=== PATIENT | male | born 1960 ===

== ENCOUNTER 2018-01-14 19:16 | Inpatient (IN) | payer MEDICARE ==
[2018-01-14 19:16] VITALS: BMI 41.0
[2018-01-14 20:20] LABS: BASO # 0.1 K/uL (0.0-0.2); BASO % 0.8 % (0.0-2.0); EOS # 0.2 K/uL (0.0-0.7); EOS % 2.2 % (0.0-4.0); HEMOGLOBIN 16.1 g/dL (12.0-18.0); LYMPH # 2.5 K/uL (1.0-4.3); LYMPH % 26.9 % (20.0-40.0); MEAN CORPUSCULAR HEMOGLOBIN 28.1 pg (27.0-31.0); MEAN CORPUSCULAR HGB CONC 33.1 g/dL (33.0-37.0); MEAN PLATELET VOLUME 7.3 fL (7.2-11.7); MONO # 0.6 K/uL (0.0-0.8); MONO % 6.1 % (0.0-10.0); NRBC % 0.2 % (0.0-2.0); RBC 5.71 Mil/uL (4.40-5.90); RED CELL DISTRIBUTION WIDTH 13.8 % (11.5-14.5); WHITE BLOOD COUNT 9.4 K/uL (4.8-10.8)
[2018-01-14 20:33] LABS: ALB/GLOB RATIO 1.2 (1.0-2.1); ALBUMIN 4.6 g/dL (3.5-5.0); CALCIUM 9.4 mg/dl (8.6-10.4); GFR AFRICAN-AMERICAN > 60; GFR NON-AFRICAN AMERICAN 52; URIC ACID 8.5 mg/dL (3.5-8.5)
[2018-01-14 20:34] LABS: ALT/SGPT 26 U/L (21-72); AST/SGOT 27 U/L (17-59); BLOOD UREA NITROGEN 32 mg/dL (9-20)
[2018-01-14] MEDS ORDERED: Sodium Chloride 0.9% 1,000 ML IV STA (20:35)
[2018-01-14] MEDS ORDERED: Sodium Chloride 0.9% 1,000 ML ONE (20:47)
[2018-01-14 20:57] LABS: INR 1.1; PROTHROMBIN TIME 12.1 SECONDS (9.7-12.2)
[2018-01-14 21:54] LABS: URINE BACTERIA RARE (<OCC); URINE BILIRUBIN NEGATIVE (NEGATIVE); URINE BLOOD NEGATIVE (NEGATIVE); URINE CLARITY Clear (Clear); URINE COLOR Yellow (YELLOW); URINE GLUCOSE (UA) 3+ mg/dL (Normal); URINE LEUKOCYTE ESTERASE NEG Leu/uL (Negative); URINE PROTEIN NEGATIVE (NEGATIVE); URINE UROBILINOGEN NORMAL mg/dL (0.2-1.0)
[2018-01-14] MEDS ORDERED: cefTRIAXone IV 1 gm in Dextros 50 ML IVPB ONE (22:25)
--- NOTE | 2018-01-14 22:32 | C.PDOC ---
History Of Present Illness Pt c/o RLE pain and right foot swelling/redness. Time Seen by Provider: 01/14/18 19:39 Chief Complaint (Nursing): Lower Extremity Problem/Injury History Per: Patient, Family Onset/Duration Of Symptoms: Days (3) Current Symptoms Are (Timing): Still Present Location Of Injury: Right: Foot Quality Of Symptoms: Painful, Swollen. denies: Draining Severity: Moderate Additional History Per: Prior Records Past Medical History Reviewed: Historical Data, Nursing Documentation, Vital Signs Vital Signs: Last Vital Signs Temp 100.4 F H 01/14/18 20:17 Pulse 86 01/14/18 19:33 Resp 20 01/14/18 19:33 BP 158/84 H 01/14/18 19:33 Pulse Ox 96 01/14/18 19:33 - Medical History PMH: Anxiety, Arthritis, Benign Prostatic Hyperplasia, Diabetes, HTN, Hypercholesterolemia Surgical History: Coronary Stent (2001,2009) - [facility] Procedures COLONOSCOPY (03/28/99) ENDOSC RETROGRADE CHOLANGIOPANCREATOGRAPHY [ERCP] (02/09/99) EXTRACTION OF LEFT FOOT SKIN, EXTERNAL APPROACH (03/12/16) NECK SUPPORT APPLICATION (03/11/00) Family History: States: Unknown Family Hx - Social History Hx Tobacco Use: Yes (former smoker) Hx Alcohol Use: No Hx Substance Use: Yes - Immunization History Hx Tetanus Toxoid Vaccination: No Hx Influenza Vaccination: No Hx Pneumococcal Vaccination: Yes Review Of Systems Except As Marked, All Systems Reviewed And Found Negative. Constitutional: Negative for: Weakness Cardiovascular: Negative for: Chest Pain Respiratory: Negative for: Cough, Shortness of Breath Gastrointestinal: Negative for: Vomiting, Abdominal Pain, Diarrhea Genitourinary: Negative for: Dysuria Musculoskeletal: Positive for: Foot Pain (right). Negative for: Neck Pain, Back Pain Skin: Positive for: Rash Neurological: Negative for: Weakness, Numbness, Headache Physical Exam - Physical Exam Appears: Non-toxic, No Acute Distress Skin: Warm, Dry Head: Atraumatic, Normacephalic Eye(s): bilateral: PERRL, EOMI Oral Mucosa: Dry Neck: Normal ROM, Supple Cardiovascular: Rhythm Regular Respiratory: Normal Breath Sounds, No Accessory Muscle Use Gastrointestinal/Abdominal: Soft, No Tenderness Back: No CVA Tenderness, No Vertebral Tenderness Extremity: Normal ROM, Tenderness (right foot, with some erythema), No Calf Tenderness, Capillary Refill (wnl), Swelling (right foot) Neurological/Psych: Oriented x3, Normal Motor, Normal Sensation ED Course And Treatment - Laboratory Results Result Diagrams: 01/14/18 20:17 01/14/18 20:17 Lab Interpretation: Abnormal Interpretation Of Abnormal: Elevated BUN. Positive D-Dimer. O2 Sat by Pulse Oximetry: 96 Pulse Ox Interpretation: Normal Progress Note: Pt was found to be febrile in the ED. Progress - Interventions Interventions:: Observation, Intravenous fluid - Medications Administered Oral: Acetaminophen Intravenous: Other (Abx) - Data Reviewed Data Reviewed: Lab, Old records - Continuity of Care Discussed patient case with:: Patient, Family-HIPPA compliant, ED Nurse, PMD Disposition Discussed With : Renee Ordonez Comment: Will keep for observation and obtain a RLE duplex in the morning to r/ o DVT as it is not available at this time. Counseled Patient/Family Regarding: Studies Performed, Diagnosis - Disposition Disposition: HOSPITALIZED Disposition Time: 22:34 Condition: FAIR - Clinical Impression Clinical Impression: Acute pain of right lower extremity, Swelling of right foot, Fever
[2018-01-14] MEDS: (Novolin R) Insulin Human Regular 100 units/ml vial SC SCH (23:15)
[2018-01-14] MEDS: oxyCODONE 30 mg Immediate Release Tab PO PRN (23:39)
[2018-01-14] MEDS ORDERED: Enoxaparin 40 mg Syringe SC ONE (23:50)
[2018-01-15 00:38] VITALS: RESP 20
[2018-01-15 07:25] LABS: BASO # 0.1 K/uL (0.0-0.2); BASO % 0.9 % (0.0-2.0); EOS # 0.3 K/uL (0.0-0.7); EOS % 2.9 % (0.0-4.0); HEMOGLOBIN 16.4 g/dL (12.0-18.0); LYMPH # 3.7 K/uL (1.0-4.3); MEAN CELL VOLUME 85.1 fL (80.0-94.0); MEAN CORPUSCULAR HEMOGLOBIN 29.1 pg (27.0-31.0); MEAN CORPUSCULAR HGB CONC 34.2 g/dL (33.0-37.0); MEAN PLATELET VOLUME 7.5 fL (7.2-11.7); MONO # 0.5 K/uL (0.0-0.8); MONO % 5.7 % (0.0-10.0); NEUT # 4.7 K/uL (1.8-7.0); NEUT % 50.5 % (50.0-75.0); NRBC % 0.1 % (0.0-2.0); RBC 5.62 Mil/uL (4.40-5.90); RED CELL DISTRIBUTION WIDTH 14.1 % (11.5-14.5); WHITE BLOOD COUNT 9.2 K/uL (4.8-10.8)
[2018-01-15] MEDS ORDERED: (Novolin R) Insulin Human Regular 100 units/ml vial SC SCH (07:30)
[2018-01-15] MEDS: (Novolin R) Insulin Human Regular 100 units/ml vial SC SCH ×4 (07:43→21:39)
[2018-01-15 08:06] LABS: ALB/GLOB RATIO 1.3 (1.0-2.1); ALBUMIN 4.4 g/dL (3.5-5.0); ALT/SGPT 25 U/L (21-72); AST/SGOT 21 U/L (17-59); BLOOD UREA NITROGEN 28 mg/dL (9-20); CALCIUM 8.8 mg/dl (8.6-10.4); GFR AFRICAN-AMERICAN > 60; GFR NON-AFRICAN AMERICAN 57
[2018-01-15] MEDS: Enoxaparin 40 mg Syringe SC SCH ×2 (09:24→17:08)
--- NOTE | 2018-01-15 12:41 | VASCLAB ---
PROCEDURE: Right Lower Extremity Venous Duplex Exam. HISTORY: DVT PRIORS: None. TECHNIQUE: Right common femoral, femoral, popliteal and posterior tibial, peroneal and great saphenous veins were evaluated. Flow was assessed with color Doppler, compressibility, assessment of phasic flow and augmentation response. Report prepared by JHONATAN Campo FINDINGS: RIGHT: 1. Common Femoral Vein: 1.1. Compressibility - Fully compressible: Thrombus - None: Flow - Phasic: Augmentation -Normal: Reflux - None. 2. Femoral Vein: 2.1. Compressibility - Fully compressible: Thrombus - None: Flow - Phasic: Augmentation -Normal: Reflux - None. 3. Popliteal Vein: 3.1. Compressibility - Fully compressible: Thrombus - None: Flow - Phasic: Augmentation -Normal: Reflux - None. 4. Posterior Tibial Vein: 4.1. Compressibility - Fully compressible: Thrombus - None: Flow - Phasic: Augmentation -Normal: Reflux - None. 5. Peroneal Vein: 5.1. Compressibility - Fully compressible: Thrombus - None: Flow - Phasic: Augmentation -Normal: Reflux - None. 6. Great Saphenous Vein: 6.1. Compressibility - Fully compressible: Thrombus -None: Flow - Phasic: Augmentation - Normal: Reflux - None. OTHER FINDINGS: IMPRESSION: No evidence of deep or superficial vein thrombosis of the right lower extremity with excellent venous flow. Normal valve function noted of the right side. Normal venous flow noted in the left common femoral vein.
[2018-01-15] MEDS: oxyCODONE 30 mg Immediate Release Tab PO PRN ×2 (13:18→21:00)
--- NOTE | 2018-01-15 13:34 | CP.PCM.HP ---
History of Present Illness - History of Present Illness History of Present Illness: COMPREHENSIVE HISTORY & PHYSICAL EXAM HPI 57-year-old male is admitted with the swelling of the right foot for the last 48 hours. Patient said the patient started getting pain and swelling of the right food then extended to the right foreleg thigh and up to the groin region this was also associated with pain and increased temperature and increased skin sensitivity. Patient did not seek medical advice right away was seen as outpatient yesterday and was advised hospitalization or evaluation for DVT. Patient has a history of type 2 diabetes history of previous infection in the right dorsum of the foot. Currently patient has no sensation of pain in both soles of the feet. Patient has coronary artery disease with bypass surgery and stent. History of hypertension. Patient has a history of osteomyelitis of the right foot last year. Patient has a chronic lumbosacral radiculopathy on narcotics PAST HIST. PERSONAL HIST: Smoking. N Alcohol. N Allergy N Travel_- . FAMILY HIST : ROS : Constitutional: Negative for weight change, chills, night sweats, fatigue and usage of assist device. Eyes: Negative for redness, swelling, itching, discharge, vision changes, blurry vision, double vision, glaucoma, cataracts, Ears: Negative for hearing loss, ringing, , tinnitus, vertigo Nose: Negative for rhinorrhea, stuffiness, sniffing, itching, postnasal drip, discoloration, nasal congestion and epistaxis. Throat: Negative for throat clearing, sore throat, hoarseness, difficulty swallowing and difficulty speaking. Respiratory: Negative for cough, , sputum production, chest tightness, wheezing, pleuritic chest pain ,daytime somnolence, chronic cough, hemoptysis, snoring at night, Cardiovascular: Negative for chest pain, palpitations, orthopnea, PND, Edema of legs, leg cramps, angina, claudication, , irregular heartbeat, Neurology: Negative for irritability, muscle weakness, numbness and tingling, seizures, tremors, migraines, slurred speech, syncope, memory loss, mood changes , recurrent headaches Gastrointestinal: Negative for difficulty swallowing, diarrhea, constipation, black stools, rectal bleeding, nausea, flatulence, reflux, poor appetite, changes in bowel habits, abdominal pain Genitourinary: Negative for frequent urination, hematuria, discharge, incontinence, urinary retention, frequent UTI, Psychiatric: Negative for depression, anxiety/panic, suicidal tendencies, Musculoskeletal: Negative for swollen joints, back pain, , neck pain, morning stiffness of joints, . Pain and swelling mostly in the right calf Skin: Negative for rash, ulcers, itching, dry skin and pigmented lesions. P/E: Constitutional: Appears stated age and in no apparent distress. Head: Normocephalic. Ears: External ear canals patent without inflammation. Tympanic membranes intact with normal light reflex and landmark. Eyes: Pupils are central, bilaterally equal, symmetrical and reacts to light with normal movements and no icterus or pallor. Nose: External nares are patent. Mucosa is pink Mouth-Throat: Good general appearance and condition. No post-pharyngeal/oropharyngeal erythema and tonsillar hypertrophy. Good dental hygiene. Neck-Lymphatic: Neck is supple with normal ROM, no thyromegaly, lymph nodes or masses. JVD is normal with no carotid bruit. Lungs: Clear to percussion and auscultation with bilateral normal air entry. Cardiovascular: S1 and S2 are normal with no murmurs, gallops and rub. GI Exam: No hepatomegaly. Abdomen is soft and non-tender. No Organomegaly , masses or hernias are evident and bowel sounds are normal and active. Neurology: Higher function and all cranial nerves intact, with no gross motor or sensory deficit. Superficial and deep reflexes are normal with downwards planters. No cerebellar deficit with normal gait. Musculoskeletal: No tender spots with normal curvature of the spine with no swelling or restricted ROM of the small and large joints. Extremities the right foot near the ankle and the calf is swollen tender and Homans signs is questionable positive. Pulses are intact there is no any break in the skin or any superficial infections or ulcers. Skin: No rash, eruptions or abnormal skin pigmentation LAB/RADIOLOGY: ASSESMENT : Rule out DVT of the right leg Possible subcutaneous infection of the right leg, as patient had a fever of 100.4F in the year Type 2 diabetes on insulin, coronary artery disease CABG. PLAN: Subcutaneous anticoagulation, Doppler studies of the right leg and possible IV antibiotics if the Doppler studies are negative Present on Admission - Present on Admission Any Indicators Present on Admission: No Past Patient History - Infectious Disease Hx of Infectious Diseases: None - Past Medical History & Family History Past Medical History?: Yes - Past Social History Smoking Status: Former Smoker - CARDIAC Hx Hypercholesterolemia: Yes Hx Hypertension: Yes - PULMONARY Hx Respiratory Disorders: No - NEUROLOGICAL Hx Neurological Disorder: Yes Hx Dizziness: Yes - HEENT Hx HEENT Problems: Yes Hx Cataracts: Yes (herman cataract surgery) - RENAL Hx Chronic Kidney Disease: No - ENDOCRINE/METABOLIC Hx Diabetes Mellitus Type 2: Yes - HEMATOLOGICAL/ONCOLOGICAL Hx Blood Disorders: No - INTEGUMENTARY Hx Dermatological Problems: Yes Other/Comment: left big toe - MUSCULOSKELETAL/RHEUMATOLOGICAL Hx Arthritis: Yes - GASTROINTESTINAL Hx Gastrointestinal Disorders: Yes Hx Hemorrhoids: Yes - GENITOURINARY/GYNECOLOGICAL Hx Genitourinary Disorders: No - PSYCHIATRIC Hx Anxiety: Yes Hx Substance Use: Yes - SURGICAL HISTORY Hx Coronary Stent: Yes (2001,2009) - ANESTHESIA Hx Anesthesia: Yes Hx Anesthesia Reactions: No Meds Allergies/Adverse Reactions: Allergies Allergy/AdvReac Type Severity Reaction Status Date / Time seasonal Allergy Uncoded 01/14/18 19:36 Results - Vital Signs Recent Vital Signs: Last Vital Signs Temp 98.4 F 01/15/18 07:39 Pulse 84 01/15/18 07:39 Resp 20 01/15/18 07:39 BP 160/84 H 01/15/18 07:39 Pulse Ox 96 01/15/18 08:26 - Labs Result Diagrams: 01/15/18 07:17 01/15/18 07:17 Labs: Laboratory Results - last 24 hr 01/14/18 01/14/18 01/14/18 20:17 20:17 20:43 WBC 9.4 RBC 5.71 Hgb 16.1 D Hct 48.5 MCV 85.0 D MCH 28.1 MCHC 33.1 RDW 13.8 Plt Count 239 MPV 7.3 Neut % (Auto) 64.0 Lymph % (Auto) 26.9 [place] % (Auto) 6.1 Eos % (Auto) 2.2 Baso % (Auto) 0.8 Neut # (Auto) 6.0 Lymph # (Auto) 2.5 [place] # (Auto) 0.6 Eos # (Auto) 0.2 Baso # (Auto) 0.1 PT 12.1 INR 1.1 APTT 34 D-Dimer, Quantitative 587 H Sodium 137 Potassium 5.9 H Chloride 100 Carbon Dioxide 23 Anion Gap 20 BUN 32 H Creatinine 1.4 Est GFR ( Amer) > 60 Est GFR (Non-Af Amer) 52 POC Glucose (mg/dL) Random Glucose 233 H Uric Acid 8.5 Calcium 9.4 Total Bilirubin 1.1 AST 27 ALT 26 Alkaline Phosphatase 164 H Total Protein 8.3 Albumin 4.6 Globulin 3.7 Albumin/Globulin Ratio 1.2 Urine Color Urine Clarity Urine pH Ur Specific [place] Urine Protein Urine Glucose (UA) Urine Ketones Urine Blood Urine Nitrate Urine Bilirubin Urine Urobilinogen Ur Leukocyte Esterase Urine WBC (Auto) Urine Bacteria 01/14/18 01/14/18 01/15/18 21:44 23:19 06:53 WBC RBC Hgb Hct MCV MCH MCHC RDW Plt Count MPV Neut % (Auto) Lymph % (Auto) [place] % (Auto) Eos % (Auto) Baso % (Auto) Neut # (Auto) Lymph # (Auto) [place] # (Auto) Eos # (Auto) Baso # (Auto) PT INR APTT D-Dimer, Quantitative Sodium Potassium Chloride Carbon Dioxide Anion Gap BUN Creatinine Est GFR ( Amer) Est GFR (Non-Af Amer) POC Glucose (mg/dL) 164 H 186 H Random Glucose Uric Acid Calcium Total Bilirubin AST ALT Alkaline Phosphatase Total Protein Albumin Globulin Albumin/Globulin Ratio Urine Color Yellow Urine Clarity Clear Urine pH 5.0 Ur Specific [place] 1.018 Urine Protein Negative Urine Glucose (UA) 3+ H Urine Ketones Trace Urine Blood Negative Urine Nitrate Negative Urine Bilirubin Negative Urine Urobilinogen Normal Ur Leukocyte Esterase Neg Urine WBC (Auto) 1 Urine Bacteria Rare 01/15/18 01/15/18 01/15/18 07:17 07:17 10:45 WBC 9.2 RBC 5.62 Hgb 16.4 Hct 47.9 MCV 85.1 MCH 29.1 MCHC 34.2 RDW 14.1 Plt Count 268 MPV 7.5 Neut % (Auto) 50.5 Lymph % (Auto) 40.0 [place] % (Auto) 5.7 Eos % (Auto) 2.9 Baso % (Auto) 0.9 Neut # (Auto) 4.7 Lymph # (Auto) 3.7 [place] # (Auto) 0.5 Eos # (Auto) 0.3 Baso # (Auto) 0.1 PT INR APTT D-Dimer, Quantitative Sodium 139 Potassium 4.7 Chloride 101 Carbon Dioxide 23 Anion Gap 20 BUN 28 H Creatinine 1.3 Est GFR ( Amer) > 60 Est GFR (Non-Af Amer) 57 POC Glucose (mg/dL) 240 H Random Glucose 185 H Uric Acid Calcium 8.8 Total Bilirubin 1.1 AST 21 ALT 25 Alkaline Phosphatase 150 H Total Protein 7.8 Albumin 4.4 Globulin 3.4 Albumin/Globulin Ratio 1.3 Urine Color Urine Clarity Urine pH Ur Specific [place] Urine Protein Urine Glucose (UA) Urine Ketones Urine Blood Urine Nitrate Urine Bilirubin Urine Urobilinogen Ur Leukocyte Esterase Urine WBC (Auto) Urine Bacteria
--- NOTE | 2018-01-15 20:37 | CP.PCM.CON ---
History of Present Illness - History of Present Illness History of Present Illness: INFECTIOUS DISEASE CONSULT; DICTATED; 01/15/18 DICTATION NUMBER; [id number]. CASE DISCUSSED WITH THE STAFF.. Past Patient History - Infectious Disease Hx of Infectious Diseases: None - Past Medical History & Family History Past Medical History?: Yes - Past Social History Smoking Status: Former Smoker - CARDIAC Hx Hypercholesterolemia: Yes Hx Hypertension: Yes - PULMONARY Hx Respiratory Disorders: No - NEUROLOGICAL Hx Neurological Disorder: Yes Hx Dizziness: Yes - HEENT Hx HEENT Problems: Yes Hx Cataracts: Yes (herman cataract surgery) - RENAL Hx Chronic Kidney Disease: No - ENDOCRINE/METABOLIC Hx Diabetes Mellitus Type 2: Yes - HEMATOLOGICAL/ONCOLOGICAL Hx Blood Disorders: No - INTEGUMENTARY Hx Dermatological Problems: Yes Other/Comment: left big toe - MUSCULOSKELETAL/RHEUMATOLOGICAL Hx Arthritis: Yes - GASTROINTESTINAL Hx Gastrointestinal Disorders: Yes Hx Hemorrhoids: Yes - GENITOURINARY/GYNECOLOGICAL Hx Genitourinary Disorders: No - PSYCHIATRIC Hx Anxiety: Yes Hx Substance Use: Yes - SURGICAL HISTORY Hx Coronary Stent: Yes (2001,2009) - ANESTHESIA Hx Anesthesia: Yes Hx Anesthesia Reactions: No Meds Allergies/Adverse Reactions: Allergies Allergy/AdvReac Type Severity Reaction Status Date / Time seasonal Allergy Uncoded 01/14/18 19:36 - Medications Medications: Current Medications Alprazolam (Xanax) 1 mg PO TID [facility] Last Admin: 01/15/18 13:13 Dose: 1 mg Clopidogrel Bisulfate (Plavix) 75 mg PO DAILY [facility] Last Admin: 01/15/18 10:59 Dose: 75 mg Enoxaparin Sodium (Lovenox) 40 mg SC BID [facility] Last Admin: 01/15/18 17:08 Dose: 40 mg Ceftriaxone Sodium 1 gm/ (Sodium Chloride) 100 mls @ 100 mls/hr IVPB Q12H [facility] PRN Reason: Protocol Last Admin: 01/15/18 19:06 Dose: 100 mls/hr Insulin Glargine (Lantus) 80 unit SC HS [facility] Insulin Human Regular (Novolin R) 0 unit SC ACHS [facility] PRN Reason: Protocol Last Admin: 01/15/18 17:13 Dose: 4 units Lisinopril (Zestril) 20 mg PO BID [facility] Last Admin: 01/15/18 17:08 Dose: 20 mg Metformin HCl (Glucophage) 1,000 mg PO BID [facility] Last Admin: 01/15/18 17:06 Dose: 1,000 mg Metoprolol Tartrate (Lopressor) 100 mg PO DAILY [facility] Last Admin: 01/15/18 09:23 Dose: 100 mg Oxycodone HCl (Oxycodone Immediate Release Tab) 30 mg PO Q6H PRN PRN Reason: Pain Last Admin: 01/15/18 13:18 Dose: 30 mg Tamsulosin HCl (Flomax) 0.4 mg PO DAILY [facility] Last Admin: 01/15/18 09:24 Dose: 0.4 mg Results - Vital Signs Recent Vital Signs: Last Vital Signs Temp 98.4 F 01/15/18 16:00 Pulse 72 01/15/18 16:00 Resp 20 01/15/18 16:00 BP 134/70 01/15/18 16:00 Pulse Ox 95 01/15/18 16:00 - Labs Result Diagrams: 01/15/18 07:17 01/15/18 07:17 Labs: Laboratory Results - last 24 hr 01/14/18 01/14/18 01/14/18 20:43 21:44 23:19 WBC RBC Hgb Hct MCV MCH MCHC RDW Plt Count MPV Neut % (Auto) Lymph % (Auto) [place] % (Auto) Eos % (Auto) Baso % (Auto) Neut # (Auto) Lymph # (Auto) [place] # (Auto) Eos # (Auto) Baso # (Auto) PT 12.1 INR 1.1 APTT 34 D-Dimer, Quantitative 587 H Sodium Potassium Chloride Carbon Dioxide Anion Gap BUN Creatinine Est GFR ( Amer) Est GFR (Non-Af Amer) POC Glucose (mg/dL) 164 H Random Glucose Calcium Total Bilirubin AST ALT Alkaline Phosphatase Total Protein Albumin Globulin Albumin/Globulin Ratio Urine Color Yellow Urine Clarity Clear Urine pH 5.0 Ur Specific [place] 1.018 Urine Protein Negative Urine Glucose (UA) 3+ H Urine Ketones Trace Urine Blood Negative Urine Nitrate Negative Urine Bilirubin Negative Urine Urobilinogen Normal Ur Leukocyte Esterase Neg Urine WBC (Auto) 1 Urine Bacteria Rare 01/15/18 01/15/18 01/15/18 06:53 07:17 07:17 WBC 9.2 RBC 5.62 Hgb 16.4 Hct 47.9 MCV 85.1 MCH 29.1 MCHC 34.2 RDW 14.1 Plt Count 268 MPV 7.5 Neut % (Auto) 50.5 Lymph % (Auto) 40.0 [place] % (Auto) 5.7 Eos % (Auto) 2.9 Baso % (Auto) 0.9 Neut # (Auto) 4.7 Lymph # (Auto) 3.7 [place] # (Auto) 0.5 Eos # (Auto) 0.3 Baso # (Auto) 0.1 PT INR APTT D-Dimer, Quantitative Sodium 139 Potassium 4.7 Chloride 101 Carbon Dioxide 23 Anion Gap 20 BUN 28 H Creatinine 1.3 Est GFR ( Amer) > 60 Est GFR (Non-Af Amer) 57 POC Glucose (mg/dL) 186 H Random Glucose 185 H Calcium 8.8 Total Bilirubin 1.1 AST 21 ALT 25 Alkaline Phosphatase 150 H Total Protein 7.8 Albumin 4.4 Globulin 3.4 Albumin/Globulin Ratio 1.3 Urine Color Urine Clarity Urine pH Ur Specific [place] Urine Protein Urine Glucose (UA) Urine Ketones Urine Blood Urine Nitrate Urine Bilirubin Urine Urobilinogen Ur Leukocyte Esterase Urine WBC (Auto) Urine Bacteria 01/15/18 01/15/18 10:45 16:10 WBC RBC Hgb Hct MCV MCH MCHC RDW Plt Count MPV Neut % (Auto) Lymph % (Auto) [place] % (Auto) Eos % (Auto) Baso % (Auto) Neut # (Auto) Lymph # (Auto) [place] # (Auto) Eos # (Auto) Baso # (Auto) PT INR APTT D-Dimer, Quantitative Sodium Potassium Chloride Carbon Dioxide Anion Gap BUN Creatinine Est GFR ( Amer) Est GFR (Non-Af Amer) POC Glucose (mg/dL) 240 H 253 H Random Glucose Calcium Total Bilirubin AST ALT Alkaline Phosphatase Total Protein Albumin Globulin Albumin/Globulin Ratio Urine Color Urine Clarity Urine pH Ur Specific [place] Urine Protein Urine Glucose (UA) Urine Ketones Urine Blood Urine Nitrate Urine Bilirubin Urine Urobilinogen Ur Leukocyte Esterase Urine WBC (Auto) Urine Bacteria
[2018-01-15] MEDS: (Lantus) Insulin Glargine, Recombinant SC SCH (21:40)
[2018-01-16] MEDS: (Novolin R) Insulin Human Regular 100 units/ml vial SC SCH ×4 (07:53→21:03)
--- NOTE | 2018-01-16 08:04 | CON ---
DATE: 01/15/2018 INFECTIOUS DISEASE CONSULTATION REQUESTED BY: Dr. Ordonez. REASON FOR CONSULTATION: Right lower extremity pain, right foot swelling. HISTORY OF PRESENT ILLNESS: The patient is a 57-year-old male who is admitted because of swelling of the right foot and leg for the last 48 hours. As reported, the patient states he started getting pain and swelling of the right foot which then extended into the right foreleg and thigh up to the groin region. This was associated with increased temperature of 100.8 and increased skin sensitivity. The patient did not seek advice right away and was seen as an outpatient yesterday and was advised hospitalization for evaluation of DVT. Duplex venous studies reported negative today. Infectious disease consultation therefore requested by PMD for possible cellulitis as the patient has history of lumbosacral radiculopathy and decreased sensation to both lower extremities. The patient also has a history of osteomyelitis of the left foot big toe last year and was treated with antibiotics IV and p.o. The patient also has history of coronary artery disease with bypass surgery and stent and hypertension. PAST MEDICAL HISTORY: As above, history of hypertension, history of coronary artery disease, status post bypass surgery and stent placement, history of chronic lumbosacral radiculopathy, history of type 2 diabetes mellitus. SOCIAL HISTORY: The patient denies smoking or drinking. He is , lives with his . Denies any recent travel. FAMILY HISTORY: Unremarkable. REVIEW OF SYSTEMS: As above, complains of pain in the right lower extremity. The patient was given a dose of Rocephin on admission as noted by the nurse. The patient denies any shortness of breath or cough. Cardiovascular system: Denies any chest pain presently or palpitations or paroxysmal nocturnal dyspnea. There is some edema of the leg, right more than the left with erythema extending from the dorsum of the foot up to the knee. Neurology/BRIM FLEXER: Denies any weakness but does complain of numbness and poor sensation in both lower extremities, most likely secondary to his peripheral neuropathy and secondary to his diabetes. GI and , unremarkable. Denies any diarrhea, obstipation, nausea, or vomiting. PHYSICAL EXAMINATION: VITAL SIGNS: Afebrile. Blood pressure is 160/84, respirations 20, pulse of 84, temperature 98.4, pulse ox is 96%. HEENT: Pupils equal and reactive to light and accommodation. Extraocular movements full. Fundus negative. Sclerae nonicteric. Conjunctivae normal. JVP not elevated. NECK: Appears to be supple. No lymphadenopathy appreciated. LUNGS: Appears to be clear. CARDIOVASCULAR SYSTEM: S1, S2 normal. No murmur or gallop. ABDOMEN: Soft. No hepatomegaly. Bowel sounds are present. BRIM FLEXER: Moves all extremities. No gross motor or sensory deficits noted. Superficial and deep reflexes are normal with downgoing plantar's. No cerebellar deficits noted. MUSCULOSKELETAL AND EXTREMITIES: Right foot slightly swollen near the dorsum of the foot and ankle, and the calf is slightly tender and warm to touch. Homans sign is negative. Pulses are intact, and there is no breaking of the skin or any superficial infection. Some erythema noted from the dorsum of the foot up to the knee which as reported by the has improved little slightly. LABORATORY DATA: Labs and radiology noted. WBC's are 9.4, H and H of 16.1 , platelets 239. D-dimer was slightly elevated at 587 but duplex venous studies are reported to be negative. Creatinine 1.4, BUN of 32, GFR is slightly low at 52. Liver function test, bilirubin 1.1, AST 27, ALT 26, alkaline phosphatase 164, albumin is 4.6. IMPRESSION: 1. Right lower extremity cellulitis. 2. Diabetes mellitus type 2. 3. Hypertension. 4. History of coronary artery disease, status post coronary artery bypass graft and stent. 5. History of osteomyelitis, left big toe in 2017. 6. History of peripheral diabetic neuropathy. PLAN: Suggest henderson cultures. UA, urine cultures are pending. We will continue IV Rocephin 1 gm every 12 hourly for now while awaiting cultures. We will get sed rate and C-reactive protein. We will follow along with you. Case discussed with the who is present at the bedside as well as the PMD. We will follow along with you. Thank you very much for allowing me to participate in the care of your patient. Js Cheng MD
[2018-01-16] MEDS: Enoxaparin 40 mg Syringe SC SCH ×2 (09:54→17:31)
[2018-01-16] MEDS: oxyCODONE 30 mg Immediate Release Tab PO PRN ×2 (09:58→22:16)
--- NOTE | 2018-01-16 13:37 | CP.PCM.PN ---
Subjective - Date & Time of Evaluation Date of Evaluation: 01/16/18 Time of Evaluation: 13:34 - Subjective Subjective: CHIEF COMPLAINTS TODAY : Pain in the right leg has subsided there is still some swelling left. Patient is afebrile with stable vital signs. ROS. HEENT : N. Resp : No cough, wheezing ,pleuritic CP ,or hemoptysis Cardio : No anginal CP, PND, orthopnea, palpitation GI : No abd.pain, n/v ,diarrhea or GI bleeding . 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 Musculoskel : No joint swelling , Derm : No rash Psych : Normal affect. Ext : No swelling ,calf pain PE. Pt. is alert awake in no distress. V.S As noted in the chart Head ,ear nose,throat and eyes : Normal. Neck : Supple with normal carotids. Lungs: Clear air entry. Heart : S1 & S2 normal with S4. No murmur. Abd : Soft non tender with normal bowel sounds. Neuro : Moves all ext. with no localized deficit. Ext : No edema with intact pulses.Non tender calves right ankle and calf are mildly swollen than the left side Derm : No rashes or decubitus ulcer. LABS/RADIOLOGY: Blood cultures to the date are negative. Doppler studies of the right lower extremities shows no DVT ASSESSMENT/PLAN : Continue IV antibiotics as patient is improving. Monitor blood sugar Objective - Vital Signs/Intake and Output Vital Signs (last 24 hours): Temp Pulse Resp BP Pulse Ox 98.7 F 80 20 154/85 H 95 01/16/18 07:32 01/16/18 07:32 01/16/18 07:32 01/16/18 07:32 01/16/18 08:24 Intake and Output: 01/16/18 01/16/18 11:59 23:59 Intake Total 200 Balance 200 - Medications Medications: Current Medications Alprazolam (Xanax) 1 mg PO TID [facility] Last Admin: 01/16/18 09:53 Dose: 1 mg Clopidogrel Bisulfate (Plavix) 75 mg PO DAILY [facility] Last Admin: 01/16/18 09:53 Dose: 75 mg Enoxaparin Sodium (Lovenox) 40 mg SC BID [facility] Last Admin: 01/16/18 09:54 Dose: 40 mg Ceftriaxone Sodium 1 gm/ (Sodium Chloride) 100 mls @ 100 mls/hr IVPB Q12H [facility] PRN Reason: Protocol Last Admin: 01/16/18 07:55 Dose: 100 mls/hr Insulin Glargine (Lantus) 80 unit SC HS [facility] Last Admin: 01/15/18 21:40 Dose: 80 u Insulin Human Regular (Novolin R) 0 unit SC ACHS [facility] PRN Reason: Protocol Last Admin: 01/16/18 11:50 Dose: 6 units Lisinopril (Zestril) 20 mg PO BID [facility] Last Admin: 01/16/18 09:53 Dose: 20 mg Metformin HCl (Glucophage) 1,000 mg PO BID [facility] Last Admin: 01/16/18 09:52 Dose: 1,000 mg Metoprolol Tartrate (Lopressor) 100 mg PO DAILY [facility] Last Admin: 01/16/18 09:53 Dose: 100 mg Oxycodone HCl (Oxycodone Immediate Release Tab) 30 mg PO Q6H PRN PRN Reason: Pain Last Admin: 01/16/18 09:58 Dose: 30 mg Tamsulosin HCl (Flomax) 0.4 mg PO DAILY [facility] Last Admin: 01/16/18 09:54 Dose: 0.4 mg - Labs Labs: 01/15/18 07:17 01/15/18 07:17 PT 12.1 SECONDS (9.7-12.2) 01/14/18 20:43 INR 1.1 01/14/18 20:43 APTT 34 SECONDS (21-34) 01/14/18 20:43
--- NOTE | 2018-01-16 17:48 | CP.PCM.PN ---
Subjective - Date & Time of Evaluation Date of Evaluation: 01/16/18 Time of Evaluation: 17:47 - Subjective Subjective: CHIEF COMPLAINTS TODAY : afebrile , VSS C/O PAIN RLE/AND FOOT. IMPROVING CELLULITIS ROS. HEENT : N. Resp : No cough, wheezing ,pleuritic CP ,or hemoptysis Cardio : No anginal CP, PND, orthopnea, palpitation GI : No abd.pain, n/v ,diarrhea or GI bleeding . 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 Musculoskel : No joint swelling , Derm : No rash Psych : Normal affect. Ext : +VE swelling ,calf pain / ERYTHEMA LESS ON RT. LE PE. Pt. is alert awake in no distress. V.S As noted in the chart Head ,ear nose,throat and eyes : Normal. Neck : Supple with normal carotids. Lungs: Clear air entry. Heart : S1 & S2 normal with S4. No murmur. Abd : Soft non tender with normal bowel sounds. Neuro : Moves all ext. with no localized deficit. Ext : 1+ edema with intact pulses.Non tender calves. RT ANKLE AND CALF MILDLY SWOLLEN AND ERYTHEMATOUS . Derm : No rashes or decubitus ulcer. LABS/RADIOLOGY: Blood cultures to the date are negative. Doppler studies of the right lower extremities shows no DVT Objective - Vital Signs/Intake and Output Vital Signs (last 24 hours): Temp Pulse Resp BP Pulse Ox 98.7 F 67 20 138/81 96 01/16/18 17:14 01/16/18 17:14 01/16/18 17:14 01/16/18 17:14 01/16/18 17:14 Intake and Output: 01/16/18 01/16/18 06:59 18:59 Intake Total 200 200 Balance 200 200 - Medications Medications: Current Medications Alprazolam (Xanax) 1 mg PO TID [facility] Last Admin: 01/16/18 17:31 Dose: 1 mg Clopidogrel Bisulfate (Plavix) 75 mg PO DAILY [facility] Last Admin: 01/16/18 09:53 Dose: 75 mg Enoxaparin Sodium (Lovenox) 40 mg SC BID [facility] Last Admin: 01/16/18 17:31 Dose: 40 mg Furosemide (Lasix) 20 mg PO DAILY [facility] Last Admin: 01/16/18 14:32 Dose: 20 mg Ceftriaxone Sodium 1 gm/ (Sodium Chloride) 100 mls @ 100 mls/hr IVPB Q12H [facility] PRN Reason: Protocol Last Admin: 01/16/18 07:55 Dose: 100 mls/hr Insulin Glargine (Lantus) 80 unit SC HS [facility] Last Admin: 01/15/18 21:40 Dose: 80 u Insulin Human Regular (Novolin R) 0 unit SC ACHS [facility] PRN Reason: Protocol Last Admin: 01/16/18 16:30 Dose: 4 units Lisinopril (Zestril) 20 mg PO BID [facility] Last Admin: 01/16/18 17:31 Dose: 20 mg Metformin HCl (Glucophage) 1,000 mg PO BID [facility] Last Admin: 01/16/18 17:30 Dose: 1,000 mg Metoprolol Tartrate (Lopressor) 100 mg PO DAILY [facility] Last Admin: 01/16/18 09:53 Dose: 100 mg Oxycodone HCl (Oxycodone Immediate Release Tab) 30 mg PO Q6H PRN PRN Reason: Pain Last Admin: 01/16/18 09:58 Dose: 30 mg Tamsulosin HCl (Flomax) 0.4 mg PO DAILY [facility] Last Admin: 01/16/18 09:54 Dose: 0.4 mg - Labs Labs: 01/15/18 07:17 01/15/18 07:17 PT 12.1 SECONDS (9.7-12.2) 01/14/18 20:43 INR 1.1 01/14/18 20:43 APTT 34 SECONDS (21-34) 01/14/18 20:43 Assessment and Plan (1) Cellulitis Assessment & Plan: CONTINUE IV ROCEPHIN 1GM IVPB Q 12HRLY ELEVATE RLE. Status: Acute (2) Fever Assessment & Plan: ALL CULTURES -VE TO DATE. Status: Acute (3) Swelling of right foot Assessment & Plan: IMPROVING Status: Acute (4) Acute pain of right lower extremity Assessment & Plan: DUPLEX VENOUS -VE DVT. R/O PVD PODIATRY CONSULTED. Status: Acute
[2018-01-16] MEDS: (Lantus) Insulin Glargine, Recombinant SC SCH (21:03)
[2018-01-17] MEDS: (Novolin R) Insulin Human Regular 100 units/ml vial SC SCH ×4 (07:39→21:24)
[2018-01-17] MEDS: Enoxaparin 40 mg Syringe SC SCH ×2 (09:14→17:36)
[2018-01-17] MEDS: oxyCODONE 30 mg Immediate Release Tab PO PRN (09:17)
--- NOTE | 2018-01-17 10:52 | CP.PCM.CON ---
History of Present Illness - History of Present Illness History of Present Illness: 57 Y/O male patient with PMH of CAD, CABG, DM, HTN, renal insufficiency, and lumbar radiculopathy was seen at bedside this morning after request for podiatry consultation concerning pain and swelling in the Right lower extremity. Patient is AAO X 3. Patient states that the pain started 48 hours ago. Patient describes the pain as burning in nature. patient denies any trauma to his Right lower extremity. Patient states that he didn't seek any medical attention. patient admits to have diabetic neuropathy. Patient denies any F/N/ V/C or SOB. Review of Systems - Constitutional Constitutional: As Per HPI Past Patient History - Infectious Disease Hx of Infectious Diseases: None - Past Medical History & Family History Past Medical History?: Yes - Past Social History Smoking Status: Former Smoker - CARDIAC Hx Hypercholesterolemia: Yes Hx Hypertension: Yes - PULMONARY Hx Respiratory Disorders: No - NEUROLOGICAL Hx Neurological Disorder: Yes Hx Dizziness: Yes - HEENT Hx HEENT Problems: Yes Hx Cataracts: Yes (herman cataract surgery) - RENAL Hx Chronic Kidney Disease: No - ENDOCRINE/METABOLIC Hx Diabetes Mellitus Type 2: Yes - HEMATOLOGICAL/ONCOLOGICAL Hx Blood Disorders: No - INTEGUMENTARY Hx Dermatological Problems: Yes Other/Comment: left big toe - MUSCULOSKELETAL/RHEUMATOLOGICAL Hx Falls: Yes - GASTROINTESTINAL Hx Gastrointestinal Disorders: Yes Hx Hemorrhoids: Yes - GENITOURINARY/GYNECOLOGICAL Hx Genitourinary Disorders: No - PSYCHIATRIC Hx Anxiety: Yes Hx Substance Use: Yes - SURGICAL HISTORY Hx Coronary Stent: Yes (2001,2009) - ANESTHESIA Hx Anesthesia: Yes Hx Anesthesia Reactions: No Meds Allergies/Adverse Reactions: Allergies Allergy/AdvReac Type Severity Reaction Status Date / Time seasonal Allergy Uncoded 01/14/18 19:36 - Medications Medications: Current Medications Alprazolam (Xanax) 1 mg PO TID [facility] Last Admin: 01/17/18 09:13 Dose: 1 mg Clopidogrel Bisulfate (Plavix) 75 mg PO DAILY [facility] Last Admin: 01/17/18 09:13 Dose: 75 mg Enoxaparin Sodium (Lovenox) 40 mg SC BID [facility] Last Admin: 01/17/18 09:14 Dose: 40 mg Furosemide (Lasix) 20 mg PO DAILY [facility] Last Admin: 01/17/18 09:13 Dose: 20 mg Ceftriaxone Sodium 1 gm/ (Sodium Chloride) 100 mls @ 100 mls/hr IVPB Q12H [facility] PRN Reason: Protocol Last Admin: 01/17/18 07:41 Dose: 100 mls/hr Insulin Glargine (Lantus) 80 unit SC HS [facility] Last Admin: 01/16/18 21:03 Dose: 80 u Insulin Human Regular (Novolin R) 0 unit SC ACHS [facility] PRN Reason: Protocol Last Admin: 01/17/18 07:39 Dose: 3 units Lisinopril (Zestril) 20 mg PO BID [facility] Last Admin: 01/17/18 09:17 Dose: 20 mg Metformin HCl (Glucophage) 1,000 mg PO BID [facility] Last Admin: 01/17/18 09:14 Dose: 1,000 mg Metoprolol Tartrate (Lopressor) 100 mg PO DAILY [facility] Last Admin: 01/17/18 09:14 Dose: 100 mg Oxycodone HCl (Oxycodone Immediate Release Tab) 30 mg PO Q6H PRN PRN Reason: Pain Last Admin: 01/17/18 09:17 Dose: 30 mg Tamsulosin HCl (Flomax) 0.4 mg PO DAILY [facility] Last Admin: 01/17/18 09:13 Dose: 0.4 mg Physical Exam - Constitutional Appears: Well, Non-toxic, No Acute Distress - Head Exam Head Exam: ATRAUMATIC - Extremities Exam Additional comments: Lower Extremity focused exam: Vasc: DP/PT are palpable on the L side 1/4, PT is palpabl;e at the R side 1/4, R PT is non palpable secondary to pittine edema. Cap refill < 3 sec to all digit. Temp gradient Warm to cool in the left side and warm to machine worker the Right side. Right +2 pitting edema at the level of the foot. Derm: No open lesions, No Interdigital macerations. Neuro: grossly deminished b/l. MSK: Mild pain on palpation to the R forefoot. Decreased ROM noted to joints distal to ankle b/l. - Neurological Exam Neurological exam: Alert, Oriented x3 - Psychiatric Exam Psychiatric exam: Normal Affect, Normal Mood Results - Vital Signs Recent Vital Signs: Last Vital Signs Temp 97.3 F L 01/17/18 07:34 Pulse 73 01/17/18 07:34 Resp 20 01/17/18 07:34 BP 152/81 H 01/17/18 09:13 Pulse Ox 97 01/17/18 07:34 - Labs Result Diagrams: 01/15/18 07:17 01/15/18 07:17 Labs: Laboratory Results - last 24 hr 01/16/18 01/16/18 01/16/18 11:12 16:31 21:26 POC Glucose (mg/dL) 343 H 279 H 275 H Assessment & Plan - Assessment and Plan (Free Text) Assessment: 57 Y/O male patient with new onset of burning pain and edema of the Right lower extremity: Fracture vs gout vs acute charcot change Plan: Patient seen and evaluated at the bedside. Plan discussed with Dr. Alvarez. Vitals and labs: Afebrile, WBCs 9.2 3 views R foot X-ray ordered: r/o fracture Continue antibiotic and pain medication. Podiatry continue to follow up the patient in house.
[2018-01-17] MEDS ORDERED: Pneumococcal 23-Valent Vaccine IM ONE (13:42)
--- NOTE | 2018-01-17 13:48 | CP.PCM.PN ---
Subjective - Date & Time of Evaluation Date of Evaluation: 01/17/18 Time of Evaluation: 13:47 - Subjective Subjective: CHIEF COMPLAINTS TODAY : Pain in the right leg has subsided there is still some swelling left. Patient is afebrile with stable vital signs. ROS. HEENT : N. Resp : No cough, wheezing ,pleuritic CP ,or hemoptysis Cardio : No anginal CP, PND, orthopnea, palpitation GI : No abd.pain, n/v ,diarrhea or GI bleeding . 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 Musculoskel : No joint swelling , Derm : No rash Psych : Normal affect. Ext : No swelling ,calf pain PE. Pt. is alert awake in no distress. V.S As noted in the chart Head ,ear nose,throat and eyes : Normal. Neck : Supple with normal carotids. Lungs: Clear air entry. Heart : S1 & S2 normal with S4. No murmur. Abd : Soft non tender with normal bowel sounds. Neuro : Moves all ext. with no localized deficit. Ext : No edema with intact pulses.Non tender calves right ankle and calf are mildly swollen than the left side Derm : No rashes or decubitus ulcer. LABS/RADIOLOGY: Blood cultures to the date are negative. Doppler studies of the right lower extremities shows no DVT ASSESSMENT/PLAN : Continue IV antibiotics as patient is improving. Monitor blood sugar Objective - Vital Signs/Intake and Output Vital Signs (last 24 hours): Temp Pulse Resp BP Pulse Ox 97.3 F L 73 20 152/81 H 97 01/17/18 07:34 01/17/18 07:34 01/17/18 07:34 01/17/18 09:13 01/17/18 07:34 Intake and Output: 01/17/18 01/17/18 11:59 23:59 Intake Total 200 Balance 200 - Medications Medications: Current Medications Alprazolam (Xanax) 1 mg PO TID [facility] Last Admin: 01/17/18 13:45 Dose: 1 mg Clopidogrel Bisulfate (Plavix) 75 mg PO DAILY [facility] Last Admin: 01/17/18 09:13 Dose: 75 mg Enoxaparin Sodium (Lovenox) 40 mg SC BID [facility] Last Admin: 01/17/18 09:14 Dose: 40 mg Furosemide (Lasix) 20 mg PO DAILY [facility] Last Admin: 01/17/18 09:13 Dose: 20 mg Ceftriaxone Sodium 1 gm/ (Sodium Chloride) 100 mls @ 100 mls/hr IVPB Q12H [facility] PRN Reason: Protocol Last Admin: 01/17/18 07:41 Dose: 100 mls/hr Insulin Glargine (Lantus) 80 unit SC HS [facility] Last Admin: 01/16/18 21:03 Dose: 80 u Insulin Human Regular (Novolin R) 0 unit SC ACHS [facility] PRN Reason: Protocol Last Admin: 01/17/18 11:26 Dose: 4 units Lisinopril (Zestril) 20 mg PO BID [facility] Last Admin: 01/17/18 09:17 Dose: 20 mg Metformin HCl (Glucophage) 1,000 mg PO BID [facility] Last Admin: 01/17/18 09:14 Dose: 1,000 mg Metoprolol Tartrate (Lopressor) 100 mg PO DAILY [facility] Last Admin: 01/17/18 09:14 Dose: 100 mg Oxycodone HCl (Oxycodone Immediate Release Tab) 30 mg PO Q6H PRN PRN Reason: Pain Last Admin: 01/17/18 09:17 Dose: 30 mg Tamsulosin HCl (Flomax) 0.4 mg PO DAILY [facility] Last Admin: 01/17/18 09:13 Dose: 0.4 mg - Labs Labs: 01/15/18 07:17 01/15/18 07:17 PT 12.1 SECONDS (9.7-12.2) 01/14/18 20:43 INR 1.1 01/14/18 20:43 APTT 34 SECONDS (21-34) 01/14/18 20:43
[2018-01-17] MEDS: (Lantus) Insulin Glargine, Recombinant SC SCH (21:33)
--- NOTE | 2018-01-17 22:34 | CP.PCM.PN ---
Subjective - Date & Time of Evaluation Date of Evaluation: 01/17/18 Time of Evaluation: 22:33 - Subjective Subjective: CHIEF COMPLAINTS TODAY : afebrile , VSS C/O PAIN RLE/AND FOOT. IMPROVING CELLULITIS PT SEEN BY PODIATRY. XRAYS RT. FOOT PENDING. ROS. HEENT : N. Resp : No cough, wheezing ,pleuritic CP ,or hemoptysis Cardio : No anginal CP, PND, orthopnea, palpitation GI : No abd.pain, n/v ,diarrhea or GI bleeding . 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 Musculoskel : No joint swelling , Derm : No rash Psych : Normal affect. Ext : +VE swelling ,calf pain / ERYTHEMA LESS ON RT. LE PE. Pt. is alert awake in no distress. V.S As noted in the chart Head ,ear nose,throat and eyes : Normal. Neck : Supple with normal carotids. Lungs: Clear air entry. Heart : S1 & S2 normal with S4. No murmur. Abd : Soft non tender with normal bowel sounds. Neuro : Moves all ext. with no localized deficit. Ext : 1+ edema with intact pulses.Non tender calves. RT ANKLE AND CALF MILDLY SWOLLEN AND ERYTHEMATOUS . Derm : No rashes or decubitus ulcer. LABS/RADIOLOGY: Blood cultures to the date are negative. Doppler studies of the right lower extremities shows no DVT Objective - Vital Signs/Intake and Output Vital Signs (last 24 hours): Temp Pulse Resp BP Pulse Ox 98.5 F 70 20 162/85 H 95 01/17/18 21:36 01/17/18 21:36 01/17/18 21:36 01/17/18 21:36 01/17/18 21:36 Intake and Output: 01/17/18 01/18/18 18:59 06:59 Intake Total 400 Balance 400 - Medications Medications: Current Medications Alprazolam (Xanax) 1 mg PO TID [facility] Last Admin: 01/17/18 17:36 Dose: 1 mg Clopidogrel Bisulfate (Plavix) 75 mg PO DAILY [facility] Last Admin: 01/17/18 09:13 Dose: 75 mg Enoxaparin Sodium (Lovenox) 40 mg SC BID [facility] Last Admin: 01/17/18 17:36 Dose: 40 mg Furosemide (Lasix) 20 mg PO DAILY [facility] Last Admin: 01/17/18 09:13 Dose: 20 mg Ceftriaxone Sodium 1 gm/ (Sodium Chloride) 100 mls @ 100 mls/hr IVPB Q12H [facility] PRN Reason: Protocol Last Admin: 01/17/18 19:07 Dose: 100 mls/hr Insulin Glargine (Lantus) 80 unit SC HS [facility] Last Admin: 01/17/18 21:33 Dose: 80 u Insulin Human Regular (Novolin R) 0 unit SC ACHS [facility] PRN Reason: Protocol Last Admin: 01/17/18 21:24 Dose: Not Given Lisinopril (Zestril) 20 mg PO BID [facility] Last Admin: 01/17/18 17:36 Dose: 20 mg Metformin HCl (Glucophage) 1,000 mg PO BID [facility] Last Admin: 01/17/18 17:36 Dose: 1,000 mg Metoprolol Tartrate (Lopressor) 100 mg PO DAILY [facility] Last Admin: 01/17/18 09:14 Dose: 100 mg Oxycodone HCl (Oxycodone Immediate Release Tab) 30 mg PO Q6H PRN PRN Reason: Pain Last Admin: 01/17/18 09:17 Dose: 30 mg Tamsulosin HCl (Flomax) 0.4 mg PO DAILY [facility] Last Admin: 01/17/18 09:13 Dose: 0.4 mg - Labs Labs: 01/15/18 07:17 01/15/18 07:17 PT 12.1 SECONDS (9.7-12.2) 01/14/18 20:43 INR 1.1 01/14/18 20:43 APTT 34 SECONDS (21-34) 01/14/18 20:43 Assessment and Plan (1) Cellulitis Assessment & Plan: CONTINUE IV CEFOTRIAXONE 1GM IV Q 12HRLY. CHECK XRAYS RT FOOT ORDERED Status: Acute (2) Fever Assessment & Plan: RESOLVED. ALL CULTURES -VE Status: Acute (3) Swelling of right foot Assessment & Plan: IMPROVING. IF RT FOOT XRAYS N, WILL DC IV ABX START PO DURICEF 500MG PO BID X 5 DAYS Status: Acute (4) Acute pain of right lower extremity Assessment & Plan: ANALGESICS R/O PVD ARTERIAL DOPPLERS ORDERED. Status: Acute
[2018-01-17 23:29] VITALS: O2SAT 96
[2018-01-18] MEDS: (Novolin R) Insulin Human Regular 100 units/ml vial SC SCH ×3 (09:25→17:20)
[2018-01-18] MEDS: Enoxaparin 40 mg Syringe SC SCH ×2 (09:45→17:20)
--- NOTE | 2018-01-18 12:14 | CP.PCM.PN ---
Subjective - Date & Time of Evaluation Date of Evaluation: 01/18/18 Time of Evaluation: 12:14 - Subjective Subjective: CHIEF COMPLAINTS TODAY : afebrile , VSS C/O PAIN RLE/AND FOOT. IMPROVING CELLULITIS PT SEEN BY PODIATRY. XRAYS RT. FOOT -VE FRACTURE ROS. HEENT : N. Resp : No cough, wheezing ,pleuritic CP ,or hemoptysis Cardio : No anginal CP, PND, orthopnea, palpitation GI : No abd.pain, n/v ,diarrhea or GI bleeding . 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 Musculoskel : No joint swelling , Derm : No rash Psych : Normal affect. Ext : +VE swelling ,calf pain / ERYTHEMA LESS ON RT. LE PE. Pt. is alert awake in no distress. V.S As noted in the chart Head ,ear nose,throat and eyes : Normal. Neck : Supple with normal carotids. Lungs: Clear air entry. Heart : S1 & S2 normal with S4. No murmur. Abd : Soft non tender with normal bowel sounds. Neuro : Moves all ext. with no localized deficit. Ext : 1+ edema with intact pulses.Non tender calves. RT ANKLE AND CALF MILDLY SWOLLEN AND ERYTHEMATOUS . Derm : No rashes or decubitus ulcer. LABS/RADIOLOGY: Blood cultures to the date are negative. Doppler studies of the right lower extremities shows no DVT Objective - Vital Signs/Intake and Output Vital Signs (last 24 hours): Temp Pulse Resp BP Pulse Ox 98 F 78 20 166/91 H 96 01/17/18 23:24 01/17/18 23:24 01/17/18 23:24 01/18/18 09:48 01/17/18 23:24 Intake and Output: 01/18/18 01/18/18 06:59 18:59 Intake Total 600 Balance 600 - Medications Medications: Current Medications Alprazolam (Xanax) 1 mg PO TID [facility] Last Admin: 01/18/18 09:58 Dose: 1 mg Clopidogrel Bisulfate (Plavix) 75 mg PO DAILY [facility] Last Admin: 01/18/18 09:48 Dose: 75 mg Enoxaparin Sodium (Lovenox) 40 mg SC BID [facility] Last Admin: 01/18/18 09:45 Dose: 40 mg Furosemide (Lasix) 20 mg PO DAILY [facility] Last Admin: 01/18/18 09:48 Dose: 20 mg Insulin Glargine (Lantus) 80 unit SC HS [facility] Last Admin: 01/17/18 21:33 Dose: 80 u Insulin Human Regular (Novolin R) 0 unit SC ACHS [facility] PRN Reason: Protocol Last Admin: 01/18/18 09:25 Dose: 3 units Lisinopril (Zestril) 20 mg PO BID [facility] Last Admin: 01/18/18 09:58 Dose: 20 mg Metformin HCl (Glucophage) 1,000 mg PO BID [facility] Last Admin: 01/18/18 09:48 Dose: 1,000 mg Metoprolol Tartrate (Lopressor) 100 mg PO DAILY [facility] Last Admin: 01/18/18 09:48 Dose: 100 mg Oxycodone HCl (Oxycodone Immediate Release Tab) 30 mg PO Q6H PRN PRN Reason: Pain Last Admin: 01/17/18 09:17 Dose: 30 mg Tamsulosin HCl (Flomax) 0.4 mg PO DAILY [facility] Last Admin: 01/18/18 09:47 Dose: 0.4 mg - Labs Labs: 01/15/18 07:17 01/15/18 07:17 PT 12.1 SECONDS (9.7-12.2) 01/14/18 20:43 INR 1.1 01/14/18 20:43 APTT 34 SECONDS (21-34) 01/14/18 20:43 Assessment and Plan (1) Cellulitis Assessment & Plan: IMPROVING. RT FOOT XRAYS N, PODIATRY FOLLOW-UP NOTED AND APPRECIATED. WILL DC IV ABX START PO DURICEF 500MG PO BID X 5 DAYS. CASE DISCUSSED WITH PMD /STAFF. IF PAIN PERSISTS ,ARTERIAL dOPPLERS CAN BE DONE OUTPATIENT, THOUGH PAIN MOST LIKELY SECONDARY TO DIABETIC NEUROPATHY. Status: Acute (2) Fever Assessment & Plan: IMPROVED Status: Acute (3) Swelling of right foot Assessment & Plan: IMPROVED. Status: Acute (4) Acute pain of right lower extremity Assessment & Plan: PATIENT ABLE TO AMBULATE TO THE BATHROOM. cONTINUE PRESENT MANAGEMENT AND ANALGESICS. Status: Acute
--- NOTE | 2018-01-18 14:02 | CP.PCM.PN ---
Subjective - Date & Time of Evaluation Date of Evaluation: 01/18/18 Time of Evaluation: 14:01 - Subjective Subjective: CHIEF COMPLAINTS TODAY : Pain in the right leg has subsided there is still some swelling left. Patient is afebrile with stable vital signs. ROS. HEENT : N. Resp : No cough, wheezing ,pleuritic CP ,or hemoptysis Cardio : No anginal CP, PND, orthopnea, palpitation GI : No abd.pain, n/v ,diarrhea or GI bleeding . [employer] : No headache, vertigo, focal deficit. Musculoskel : No joint swelling , Derm : No rash Psych : Normal affect. Ext : No swelling ,calf pain PE. Pt. is alert awake in no distress. V.S As noted in the chart Head ,ear nose,throat and eyes : Normal. Neck : Supple with normal carotids. Lungs: Clear air entry. Heart : S1 & S2 normal with S4. No murmur. Abd : Soft non tender with normal bowel sounds. Neuro : Moves all ext. with no localized deficit. Ext : No edema with intact pulses.Non tender calves right ankle and calf are mildly swollen than the left side Derm : No rashes or decubitus ulcer. LABS/RADIOLOGY: Blood cultures to the date are negative. Doppler studies of the right lower extremities shows no DVT ASSESSMENT/PLAN : Continue IV antibiotics as patient is improving. Monitor blood sugar Awaiting official report of x-ray of the right foot Objective - Vital Signs/Intake and Output Vital Signs (last 24 hours): Temp Pulse Resp BP Pulse Ox 98.1 F 75 20 166/91 H 96 01/18/18 08:00 01/18/18 08:00 01/18/18 08:00 01/18/18 09:48 01/18/18 08:00 Intake and Output: 01/18/18 01/18/18 11:59 23:59 Intake Total 200 Balance 200 - Medications Medications: Current Medications Alprazolam (Xanax) 1 mg PO TID [facility] Last Admin: 01/18/18 09:58 Dose: 1 mg Clopidogrel Bisulfate (Plavix) 75 mg PO DAILY [facility] Last Admin: 01/18/18 09:48 Dose: 75 mg Enoxaparin Sodium (Lovenox) 40 mg SC BID [facility] Last Admin: 01/18/18 09:45 Dose: 40 mg Furosemide (Lasix) 20 mg PO DAILY [facility] Last Admin: 01/18/18 09:48 Dose: 20 mg Insulin Glargine (Lantus) 80 unit SC HS [facility] Last Admin: 01/17/18 21:33 Dose: 80 u Insulin Human Regular (Novolin R) 0 unit SC [facility] PRN Reason: Protocol Last Admin: 01/18/18 12:42 Dose: 4 units Lisinopril (Zestril) 20 mg PO BID [facility] Last Admin: 01/18/18 09:58 Dose: 20 mg Metformin HCl (Glucophage) 1,000 mg PO BID [facility] Last Admin: 01/18/18 09:48 Dose: 1,000 mg Metoprolol Tartrate (Lopressor) 100 mg PO DAILY [facility] Last Admin: 01/18/18 09:48 Dose: 100 mg Oxycodone HCl (Oxycodone Immediate Release Tab) 30 mg PO Q6H PRN PRN Reason: Pain Last Admin: 01/17/18 09:17 Dose: 30 mg Tamsulosin HCl (Flomax) 0.4 mg PO DAILY [facility] Last Admin: 01/18/18 09:47 Dose: 0.4 mg - Labs Labs: 01/15/18 07:17 01/15/18 07:17 PT 12.1 SECONDS (9.7-12.2) 01/14/18 20:43 INR 1.1 01/14/18 20:43 APTT 34 SECONDS (21-34) 01/14/18 20:43
--- NOTE | 2018-01-18 14:42 | RAD ---
PROCEDURE: Right Foot Radiographs. HISTORY: R/O fracture COMPARISON: None. FINDINGS: BONES: Bone alignment and mineralization are normal. There is no acute displaced fracture or bone destruction. There is an apparent lucency in the middle cuneiform. JOINTS: Normal. SOFT TISSUES: Normal. OTHER FINDINGS: There are atherosclerotic vascular calcifications. IMPRESSION: No acute displaced fracture or dislocation. Apparent lucency in the middle cuneiform nonspecific. Please note occult fractures cannot be excluded on plain radiographs. If there is a persistent clinical concern, an CT scan or MRI may be performed for further evaluation.
--- NOTE | 2018-01-18 15:05 | CP.PCM.PN ---
Subjective - Date & Time of Evaluation Date of Evaluation: 01/18/18 Time of Evaluation: 15:03 - Subjective Subjective: Podiatry progress note for Dr. Alvarez, 57 Y/O male patient was seen at bedside this morning along with his . Patient is seen resting comfortably. Patient is AAO X 3. Patient denies any trauma to his Right lower extremity. Patient states that he didn't seek any medical attention. Patient admits to severe pain and having diabetic neuropathy. Patient denies any overnight acute events. Patient denies any F/N/V /C or SOB. Objective - Vital Signs/Intake and Output Vital Signs (last 24 hours): Temp Pulse Resp BP Pulse Ox 98.1 F 75 20 166/91 H 96 01/18/18 08:00 01/18/18 08:00 01/18/18 08:00 01/18/18 09:48 01/18/18 08:00 Intake and Output: 01/18/18 01/18/18 06:59 18:59 Intake Total 600 Balance 600 - Medications Medications: Current Medications Alprazolam (Xanax) 1 mg PO TID [facility] Last Admin: 01/18/18 14:18 Dose: 1 mg Clopidogrel Bisulfate (Plavix) 75 mg PO DAILY [facility] Last Admin: 01/18/18 09:48 Dose: 75 mg Enoxaparin Sodium (Lovenox) 40 mg SC BID [facility] Last Admin: 01/18/18 09:45 Dose: 40 mg Furosemide (Lasix) 20 mg PO DAILY [facility] Last Admin: 01/18/18 09:48 Dose: 20 mg Insulin Glargine (Lantus) 80 unit SC [facility] Last Admin: 01/17/18 21:33 Dose: 80 u Insulin Human Regular (Novolin R) [address] [facility] PRN Reason: Protocol Last Admin: 01/18/18 12:42 Dose: 4 units Lisinopril (Zestril) 20 mg PO BID [facility] Last Admin: 01/18/18 09:58 Dose: 20 mg Metformin HCl (Glucophage) 1,000 mg PO BID [facility] Last Admin: 01/18/18 09:48 Dose: 1,000 mg Metoprolol Tartrate (Lopressor) 100 mg PO DAILY [facility] Last Admin: 01/18/18 09:48 Dose: 100 mg Oxycodone HCl (Oxycodone Immediate Release Tab) 30 mg PO Q6H PRN PRN Reason: Pain Last Admin: 01/17/18 09:17 Dose: 30 mg Tamsulosin HCl (Flomax) 0.4 mg PO DAILY [facility] Last Admin: 01/18/18 09:47 Dose: 0.4 mg - Labs Labs: 01/15/18 07:17 01/15/18 07:17 PT 12.1 SECONDS (9.7-12.2) 01/14/18 20:43 INR 1.1 01/14/18 20:43 APTT 34 SECONDS (21-34) 01/14/18 20:43 - Constitutional Appears: Well, Non-toxic, No Acute Distress - Head Exam Head Exam: ATRAUMATIC, NORMOCEPHALIC - Extremities Exam Additional comments: Lower Extremity focused exam: Vasc: DP/PT pulses faintly palpable. CFT <3 secs x10. Temperature gradient warm to cool, proximal to distal b/l. Minimal edema noted to dorsal aspect of right foot Derm: No open lesions, No interdigital macerations noted. No erythema noted to either foot. Neuro: grossly diminished b/l. MSK: Mild pain on palpation to the R forefoot. Decreased ROM noted to joints distal to ankle b/l. - Neurological Exam Neurological Exam: Alert, Awake, Oriented x3 Assessment and Plan - Assessment and Plan (Free Text) Assessment: 57 Y/O male patient with new onset of burning pain and edema of the right lower extremity: Gout vs acute charcot change Plan: Patient seen and evaluated at the bedside. Plan discussed with Dr. Alvarez. Chart, Vitals and labs: Afebrile Foot x-ray 01/17: No acute fracture or dislocation Continue antibiotic and pain medication. Podiatry continue to follow up the patient in house. Patient stable from podiatry standpoint.
[2018-01-18 16:59] VITALS: BP 167/81; PULSE 65; TEMP 97.9
--- NOTE | 2018-01-19 15:37 | CP.PCM.DIS ---
Provider - Provider Date of Admission: 01/16/18 13:43 Attending physician: Renee Ordonez MD Time Spent in preparation of Discharge (in minutes): 35 Hospital Course - Lab Results Lab Results: Micro Results 01/14/18 22:04 Blood Blood Culture - Preliminary NO GROWTH AFTER 4 DAYS 01/14/18 22:04 Blood Blood Culture - Preliminary NO GROWTH AFTER 4 DAYS 01/14/18 21:44 Urine Urine Culture - Final No Growth (<1,000 CFU/ML) Most Recent Lab Values WBC 9.2 K/uL (4.8-10.8) 01/15/18 07:17 RBC 5.62 Mil/uL (4.40-5.90) 01/15/18 07:17 Hgb 16.4 g/dL (12.0-18.0) 01/15/18 07:17 Hct 47.9 % (35.0-51.0) 01/15/18 07:17 MCV 85.1 fL (80.0-94.0) 01/15/18 07:17 MCH 29.1 pg (27.0-31.0) 01/15/18 07:17 MCHC 34.2 g/dL (33.0-37.0) 01/15/18 07:17 RDW 14.1 % (11.5-14.5) 01/15/18 07:17 Plt Count 268 K/uL (130-400) 01/15/18 07:17 MPV 7.5 fL (7.2-11.7) 01/15/18 07:17 Neut % (Auto) 50.5 % (50.0-75.0) 01/15/18 07:17 Lymph % (Auto) 40.0 % (20.0-40.0) 01/15/18 07:17 [place] % (Auto) 5.7 % (0.0-10.0) 01/15/18 07:17 Eos % (Auto) 2.9 % (0.0-4.0) 01/15/18 07:17 Baso % (Auto) 0.9 % (0.0-2.0) 01/15/18 07:17 Neut # (Auto) 4.7 K/uL (1.8-7.0) 01/15/18 07:17 Lymph # (Auto) 3.7 K/uL (1.0-4.3) 01/15/18 07:17 [place] # (Auto) 0.5 K/uL (0.0-0.8) 01/15/18 07:17 Eos # (Auto) 0.3 K/uL (0.0-0.7) 01/15/18 07:17 Baso # (Auto) 0.1 K/uL (0.0-0.2) 01/15/18 07:17 PT 12.1 SECONDS (9.7-12.2) 01/14/18 20:43 INR 1.1 01/14/18 20:43 APTT 34 SECONDS (21-34) 01/14/18 20:43 D-Dimer, Quantitative 587 ng/mlDDU (0-243) H 01/14/18 20:43 Sodium 139 mmol/L (132-148) 01/15/18 07:17 Potassium 4.7 mmol/L (3.6-5.2) 01/15/18 07:17 Chloride 101 mmol/L (98-107) 01/15/18 07:17 Carbon Dioxide 23 mmol/L (22-30) 01/15/18 07:17 Anion Gap 20 (10-20) 01/15/18 07:17 BUN 28 mg/dL (9-20) H 01/15/18 07:17 Creatinine 1.3 mg/dL (0.8-1.5) 01/15/18 07:17 Est GFR ( Amer) > 60 01/15/18 07:17 Est GFR (Non-Af Amer) 57 01/15/18 07:17 POC Glucose (mg/dL) 249 mg/dL (65-110) H 01/18/18 16:42 Random Glucose 185 mg/dL (75-110) H 01/15/18 07:17 Uric Acid 8.5 mg/dL (3.5-8.5) 01/14/18 20:17 Calcium 8.8 mg/dl (8.6-10.4) 01/15/18 07:17 Total Bilirubin 1.1 mg/dL (0.2-1.3) 01/15/18 07:17 AST 21 U/L (17-59) 01/15/18 07:17 ALT 25 U/L (21-72) 01/15/18 07:17 Alkaline Phosphatase 150 U/L (38-126) H 01/15/18 07:17 Total Protein 7.8 g/dL (6.3-8.3) 01/15/18 07:17 Albumin 4.4 g/dL (3.5-5.0) 01/15/18 07:17 Globulin 3.4 gm/dL (2.2-3.9) 01/15/18 07:17 Albumin/Globulin Ratio 1.3 (1.0-2.1) 01/15/18 07:17 Urine Color Yellow (YELLOW) 01/14/18 21:44 Urine Clarity Clear (Clear) 01/14/18 21:44 Urine pH 5.0 (5.0-8.0) 01/14/18 21:44 Ur Specific [place] 1.018 (1.003-1.030) 01/14/18 21:44 Urine Protein Negative mg/dL (NEGATIVE) 01/14/18 21:44 Urine Glucose (UA) 3+ mg/dL (Normal) H 01/14/18 21:44 Urine Ketones Trace mg/dL (NEGATIVE) 01/14/18 21:44 Urine Blood Negative (NEGATIVE) 01/14/18 21:44 Urine Nitrate Negative (NEGATIVE) 01/14/18 21:44 Urine Bilirubin Negative (NEGATIVE) 01/14/18 21:44 Urine Urobilinogen Normal mg/dL (0.2-1.0) 01/14/18 21:44 Ur Leukocyte Esterase Neg Racehl/uL (Negative) 01/14/18 21:44 Urine WBC (Auto) 1 /hpf (0-5) 01/14/18 21:44 Urine Bacteria Rare (<OCC) 01/14/18 21:44 - Hospital Course Hospital Course: 57-year-old male is admitted with the swelling of the right foot for the last 48 hours. Patient said the patient started getting pain and swelling of the right food then extended to the right foreleg thigh and up to the groin region this was also associated with pain and increased temperature and increased skin sensitivity. Patient did not seek medical advice right away was seen as outpatient yesterday and was advised hospitalization or evaluation for DVT. Patient has a history of type 2 diabetes history of previous infection in the right dorsum of the foot. Currently patient has no sensation of pain in both soles of the feet. Patient has coronary artery disease with bypass surgery and stent. History of hypertension. Patient has a history of osteomyelitis of the right foot last year. Patient has a chronic lumbosacral radiculopathy on narcotics Patient was admitted on the floor. Doppler studies of the legs showed no DVT. Patient responded with IV antibiotic. ID and podiatry consults were done Septic workup was negative X-ray of the right foot was done which showed no fracture. During the hospitalization patient had no more further fever or pain or swelling. Patient was discharged on by mouth Duricef 503 times a day and will be followed on outpatient and will obtain an arterial Doppler studies for the lower extremity Discharge Exam - Head Exam Head Exam: ATRAUMATIC, NORMOCEPHALIC Discharge Plan - Follow Up Plan Condition: FAIR Disposition: HOME/ ROUTINE Instructions: Cellulitis (DC), Cellulitis (GEN)
== END 2018-01-18 19:08 | disposition home or self-care (01) | DRG 603 ==
LOC: C.ER 19:16 → C.9E 22:35 → C.3T 23:02 → OBSVTOIN 01-16 13:43
PROVIDERS: ADMIT Internal Medicine Cardiovascular Disease; ATTEND Internal Medicine Cardiovascular Disease
DX: L03.115 Cellulitis of right lower limb (principal); E11.42 Type 2 diabetes mellitus with diabetic polyneuropathy; E78.00 Pure hypercholesterolemia, unspecified; I10 Essential (primary) hypertension; I25.10 Atherosclerotic heart disease of native coronary artery without angina pectoris; M54.17 Radiculopathy, lumbosacral region; N40.0 Benign prostatic hyperplasia without lower urinary tract symptoms; Z79.4 Long term (current) use of insulin; Z87.891 Personal history of nicotine dependence; Z95.1 Presence of aortocoronary bypass graft; Z95.5 Presence of coronary angioplasty implant and graft

== ENCOUNTER 2018-02-07 13:13 | Observation (INO) | payer MEDICARE ==
[2018-02-07 13:13] VITALS: BMI 41.0
--- NOTE | 2018-02-07 14:04 | C.PDOC ---
History Of Present Illness 57 y/o male with history of cellulitis and DM presents to ED sent by for high blood sugar level. Patient was scheduled for right foot surgery and had pre op labs that showed blood sugar level of 400. Patient was admitted on 12/2017 for cellulitis to right foot that resolved with medication. At ED patient denies dizziness, weakness, nausea, vomiting or any other complaints at this time. ADMITTED 12/2017 57-year-old male is admitted with the swelling of the right foot for the last 48 hours. Patient said the patient started getting pain and swelling of the right food then extended to the right foreleg thigh and up to the groin region this was also associated with pain and increased temperature and increased skin sensitivity. Patient did not seek medical advice right away was seen as outpatient yesterday and was advised hospitalization or evaluation for DVT. Patient has a history of type 2 diabetes history of previous infection in the right dorsum of the foot. Currently patient has no sensation of pain in both soles of the feet. Patient has coronary artery disease with bypass surgery and stent. History of hypertension. Patient has a history of osteomyelitis of the right foot last year. Patient has a chronic lumbosacral radiculopathy on narcotics Patient was admitted on the floor. Doppler studies of the legs showed no DVT. Patient responded with IV antibiotic. ID and podiatry consults were done Septic workup was negative X-ray of the right foot was done which showed no fracture. During the hospitalization patient had no more further fever or pain or swelling. Patient was discharged on by mouth Duricef 503 times a day and will be followed on outpatient and will obtain an arterial Doppler studies for the lower extremity Time Seen by Provider: 02/07/18 14:03 Chief Complaint (Nursing): High Blood Sugar History Per: Patient History/Exam Limitations: no limitations Onset/Duration Of Symptoms: Days Current Symptoms Are (Timing): Still Present Past Medical History Reviewed: Historical Data, Nursing Documentation, Vital Signs Vital Signs: Last Vital Signs Temp 98.2 F 02/07/18 13:30 Pulse 86 02/07/18 13:30 Resp 20 02/07/18 13:30 BP 106/63 02/07/18 13:30 Pulse Ox 98 02/07/18 15:07 - Medical History PMH: Anxiety, Arthritis, Benign Prostatic Hyperplasia, Diabetes, HTN, Hypercholesterolemia Surgical History: Coronary Stent (2001,2009) - [facility] Procedures COLONOSCOPY (03/28/99) ENDOSC RETROGRADE CHOLANGIOPANCREATOGRAPHY [ERCP] (02/09/99) EXTRACTION OF LEFT FOOT SKIN, EXTERNAL APPROACH (03/12/16) NECK SUPPORT APPLICATION (03/11/00) Family History: States: No Known Family Hx - Social History Hx Tobacco Use: Yes (former smoker) Hx Alcohol Use: No Hx Substance Use: No - Immunization History Hx Tetanus Toxoid Vaccination: No Hx Influenza Vaccination: No Hx Pneumococcal Vaccination: No Review Of Systems Constitutional: Negative for: Fever, Chills Cardiovascular: Negative for: Chest Pain Respiratory: Negative for: Shortness of Breath Gastrointestinal: Negative for: Nausea, Vomiting Neurological: Negative for: Weakness, Numbness, Dizziness Physical Exam - Physical Exam Appears: Non-toxic, No Acute Distress Skin: Warm, Dry, No Rash Head: Atraumatic, Normacephalic Eye(s): bilateral: Normal Inspection Oral Mucosa: Moist Neck: Normal ROM, Supple Cardiovascular: Rhythm Regular Respiratory: Normal Breath Sounds, No Rales, No Rhonchi, No Wheezing Gastrointestinal/Abdominal: Soft, No Tenderness, No Guarding, No Rebound Extremity: Other (Deferred for Podiatry resident ) Neurological/Psych: Oriented x3, Normal Speech ED Course And Treatment - Laboratory Results Result Diagrams: 02/07/18 14:33 02/07/18 14:33 O2 Sat by Pulse Oximetry: 98 (RA) Pulse Ox Interpretation: Normal Progress - Re-Evaluation Re-evaluation Note: 02/07/18 14:40 d/w dr ORDONEZ: STATES REFERRED PT FOR OUTPT HIGH POTASSIUM. CHEM PENDING. WILL CALLBACK ONCE RESULTED - Data Reviewed Data Reviewed: Lab, Diagnostic imaging, EKG Disposition Counseled Patient/Family Regarding: Studies Performed, Diagnosis - Disposition Disposition: HOSPITALIZED Disposition Time: 15:08 Condition: STABLE Forms: [facility] (Lao) - POA Present On Arrival: Falls Or Trauma, Poor Glycemic Control - Clinical Impression Clinical Impression: Hyperglycemia, Hyperkalemia - Scribe Statement The provider has reviewed the documentation as recorded by the Scribeldon Lopez All medical record entries made by the Scribe were at my direction and personally dictated by me. I have reviewed the chart and agree that the record accurately reflects my personal performance of the history, physical exam, medical decision making, and the department course for this patient. I have also personally directed, reviewed, and agree with the discharge instructions and disposition. Decision To Admit - Pt Status Changed To: Hospital Disposition Of: Observation - . Bed Request Type: Telemetry Admitting Physician: Renee Ordonez Patient Diagnosis: Hyperglycemia, Hyperkalemia
[2018-02-07] MEDS ORDERED: Sodium Chloride 0.9% 1,000 ML IV ONE (14:23)
[2018-02-07] MEDS ORDERED: Sodium Chloride 0.9% 1,000 ML ONE (14:35)
[2018-02-07 14:40] LABS: VENOUS BLOOD GAS BASE EXCESS -4.3 mmol/L (0.0-2.0); VENOUS BLOOD GAS PCO2 42 mmHg (40-60); VENOUS BLOOD GAS PO2 33 mm/Hg (30-55); VENOUS BLOOD PH 7.32 (7.32-7.43)
[2018-02-07 14:41] LABS: BASO # 0.1 K/uL (0.0-0.2); BASO % 0.6 % (0.0-2.0); EOS # 0.2 K/uL (0.0-0.7); EOS % 2.2 % (0.0-4.0); HEMOGLOBIN 14.5 g/dL (12.0-18.0); LYMPH # 2.2 K/uL (1.0-4.3); LYMPH % 22.9 % (20.0-40.0); MEAN CELL VOLUME 85.1 fL (80.0-94.0); MEAN CORPUSCULAR HEMOGLOBIN 28.7 pg (27.0-31.0); MEAN CORPUSCULAR HGB CONC 33.7 g/dL (33.0-37.0); MEAN PLATELET VOLUME 7.5 fL (7.2-11.7); MONO # 0.6 K/uL (0.0-0.8); MONO % 6.3 % (0.0-10.0); NEUT # 6.5 K/uL (1.8-7.0); RBC 5.06 Mil/uL (4.40-5.90); WHITE BLOOD COUNT 9.5 K/uL (4.8-10.8)
--- NOTE | 2018-02-07 14:51 | RAD ---
HISTORY: COMPARISON: 03/12/2016. TECHNIQUE: Chest PA and lateral FINDINGS: LINES AND TUBES: None. LUNG AND PLEURA: The lungs are well inflated. There is mild pulmonary venous congestion. No pleural effusion or pneumothorax. HEART AND MEDIASTINUM: The heart is not enlarged. The hilar and mediastinal contours are within normal limits. SKELETAL STRUCTURES: The bony structures are within normal limits for the patient's age. VISUALIZED UPPER ABDOMEN: Normal. OTHER FINDINGS: None. IMPRESSION: No active pulmonary disease.
[2018-02-07 14:54] LABS: ALB/GLOB RATIO 1.2 (1.0-2.1); ALBUMIN 4.2 g/dL (3.5-5.0); CALCIUM 9.6 mg/dl (8.6-10.4)
[2018-02-07] MEDS ORDERED: (Novolin R) Insulin Human Regular 100 units/ml vial IV STA (15:03)
[2018-02-07] MEDS ORDERED: (Novolin R) Insulin Human Regular 100 units/ml vial ONE (15:15)
[2018-02-07] MEDS ORDERED: Sod Polystyrene Sulf 15 gm/60 ml Susp PO ONE (15:21)
[2018-02-07] MEDS ORDERED: Sod Polystyrene Sulf 15 gm/60 ml Susp ONE (15:40)
--- NOTE | 2018-02-07 16:45 | CP.PCM.CON ---
History of Present Illness - History of Present Illness History of Present Illness: Podiatry Consult Note: Dr. Jain 57 year old male with PMHx of PMH of CAD, CABG, DM, HTN, renal insufficiency, and lumbar radiculopathy was seen and evaluated at bedside in the ED. Patient was seen by Dr. Jain earlier this week. Reports that he was sent to his primary care for medical clearance prior to right foot surgery. Patient reports that he was to the ED by his doctor for elevated blood glucose. Patient reports that his right lower extremity is painful due to charcot. Patient denies of any opening or wounds to the RLE. Patient denies of recent F/N/V/C/SOB/CP/headache. Patient reports that he is able to walk in the CAM boot with no problem. Denies of any pedal complains at this time and reports that he is here due to elevated blood sugar level. No other complains. Review of Systems - Constitutional Constitutional: As Per HPI Past Patient History - Infectious Disease Hx of Infectious Diseases: None - Past Medical History & Family History Past Medical History?: Yes - Past Social History Smoking Status: Former Smoker - CARDIAC Hx Hypercholesterolemia: Yes Hx Hypertension: Yes - PULMONARY Hx Respiratory Disorders: No - NEUROLOGICAL Hx Neurological Disorder: Yes Hx Dizziness: Yes - HEENT Hx HEENT Problems: Yes Hx Cataracts: Yes (herman cataract surgery) - RENAL Hx Chronic Kidney Disease: No - ENDOCRINE/METABOLIC Hx Diabetes Mellitus Type 2: Yes - HEMATOLOGICAL/ONCOLOGICAL Hx Blood Disorders: No - INTEGUMENTARY Hx Dermatological Problems: Yes Other/Comment: left big toe - MUSCULOSKELETAL/RHEUMATOLOGICAL Hx Arthritis: Yes - GASTROINTESTINAL Hx Gastrointestinal Disorders: Yes Hx Hemorrhoids: Yes - GENITOURINARY/GYNECOLOGICAL Hx Genitourinary Disorders: No - PSYCHIATRIC Hx Anxiety: Yes Hx Substance Use: No - SURGICAL HISTORY Hx Coronary Stent: Yes (2001,2009) - ANESTHESIA Hx Anesthesia: Yes Hx Anesthesia Reactions: No Meds Allergies/Adverse Reactions: Allergies Allergy/AdvReac Type Severity Reaction Status Date / Time seasonal Allergy Uncoded 02/07/18 13:38 - Medications Medications: Current Medications Sodium Chloride (Sodium Chloride 0.9%) 1,000 mls @ 100 mls/hr IV .Q10H ONE Stop: 02/08/18 00:22 Last Admin: 02/07/18 14:39 Dose: 100 mls/hr Physical Exam - Constitutional Appears: Well, Non-toxic, No Acute Distress - Extremities Exam Additional comments: Long leg CAM boot intact on the RLE - Neurological Exam Neurological exam: Alert, Oriented x3 - Psychiatric Exam Psychiatric exam: Normal Affect, Normal Mood Results - Vital Signs Recent Vital Signs: Last Vital Signs Temp 98.2 F 02/07/18 13:30 Pulse 86 02/07/18 13:30 Resp 20 02/07/18 13:30 BP 106/63 02/07/18 13:30 Pulse Ox 98 02/07/18 15:08 - Labs Result Diagrams: 02/07/18 14:33 02/07/18 14:33 Labs: Laboratory Results - last 24 hr 02/07/18 02/07/18 02/07/18 13:28 14:33 14:33 WBC 9.5 RBC 5.06 Hgb 14.5 Hct 43.1 MCV 85.1 MCH 28.7 MCHC 33.7 RDW 14.0 Plt Count 330 MPV 7.5 Neut % (Auto) 68.0 Lymph % (Auto) 22.9 [place] % (Auto) 6.3 Eos % (Auto) 2.2 Baso % (Auto) 0.6 Neut # (Auto) 6.5 Lymph # (Auto) 2.2 [place] # (Auto) 0.6 Eos # (Auto) 0.2 Baso # (Auto) 0.1 pO2 VBG pH VBG pCO2 VBG HCO3 VBG Total CO2 VBG O2 Sat (Calc) VBG Base Excess VBG Potassium Glucose Lactate Crit Value Called To Crit Value Called By Crit Value Read Back Blood Gas Notified Time Sodium 134 Potassium 5.7 H Chloride 99 Carbon Dioxide 20 L Anion Gap 21 H BUN 40 H Creatinine 1.7 H Est GFR ( Amer) 51 Est GFR (Non-Af Amer) 42 POC Glucose (mg/dL) 444 H* Random Glucose 426 H* D Calcium 9.6 Total Bilirubin 0.7 AST 12 L D ALT 16 L D Alkaline Phosphatase 199 H D Total Protein 7.7 Albumin 4.2 Globulin 3.5 Albumin/Globulin Ratio 1.2 Venous Blood Potassium 02/07/18 14:35 WBC RBC Hgb Hct MCV MCH MCHC RDW Plt Count MPV Neut % (Auto) Lymph % (Auto) [place] % (Auto) Eos % (Auto) Baso % (Auto) Neut # (Auto) Lymph # (Auto) [place] # (Auto) Eos # (Auto) Baso # (Auto) pO2 33 VBG pH 7.32 VBG pCO2 42 VBG HCO3 20.5 VBG Total CO2 22.9 VBG O2 Sat (Calc) 70.3 H VBG Base Excess -4.3 L VBG Potassium 5.7 H Glucose 431 H* Lactate 2.0 Crit Value Called To stephanie Soria Crit Value Called By Lala riley Crit Value Read Back Y Blood Gas Notified Time 1439 Sodium 132.0 Potassium Chloride 97.0 L Carbon Dioxide Anion Gap BUN Creatinine Est GFR ( Amer) Est GFR (Non-Af Amer) POC Glucose (mg/dL) Random Glucose Calcium Total Bilirubin AST ALT Alkaline Phosphatase Total Protein Albumin Globulin Albumin/Globulin Ratio Venous Blood Potassium 5.7 H Assessment & Plan - Assessment and Plan (Free Text) Assessment: 57 year old male was evaluated in ED for elevated blood glucose prior to right foot charcot recon surgery Plan: Patient seen and evaluated Discussed patient with Dr. Jain Labs, vitals and charts reviewed - afebrile, no leukocytosis Patient is being admitted for medical stabilization Patient currently has no wounds/skin breaks to RLE Patient to remain WBAT in the surgical shoe Podiatry plans right foot Charcot reconstruction Patient will require medical optimization prior to surgery Patient will require cardiac clearance prior to surgery Podiatry to monitor patient while in-house - Date & Time Date: 02/07/18 Time: 17:05
[2018-02-07 20:15] VITALS: RESP 20
[2018-02-07] MEDS ORDERED: Dextrose 50% SYRINGE Inj (50 ml) IV PRN (21:53)
[2018-02-07] MEDS ORDERED: Glucagon Recombinant 1 mg Inj IM PRN (21:53)
[2018-02-07] MEDS: (Lantus) Insulin Glargine, Recombinant SC SCH (22:59)
[2018-02-07] MEDS: oxyCODONE 30 mg Immediate Release Tab PO PRN (23:04)
[2018-02-07 23:05] LABS: ALB/GLOB RATIO 1.3 (1.0-2.1); ALBUMIN 4.1 g/dL (3.5-5.0); CALCIUM 9.4 mg/dl (8.6-10.4)
[2018-02-08] MEDS: (Novolin R) Insulin Human Regular 100 units/ml vial SC SCH ×5 (00:03→21:13)
[2018-02-08 04:09] LABS: URINE BILIRUBIN NEGATIVE (NEGATIVE); URINE BLOOD NEGATIVE (NEGATIVE); URINE CLARITY Clear (Clear); URINE COLOR Yellow (YELLOW); URINE GLUCOSE (UA) 3+ mg/dL (Normal); URINE LEUKOCYTE ESTERASE NEG Leu/uL (Negative); URINE PROTEIN 1+ mg/dL (NEGATIVE); URINE UROBILINOGEN NORMAL mg/dL (0.2-1.0)
[2018-02-08 07:25] LABS: HEMOGLOBIN 13.9 g/dL (12.0-18.0); MEAN CELL VOLUME 84.4 fL (80.0-94.0); MEAN CORPUSCULAR HEMOGLOBIN 28.6 pg (27.0-31.0); MEAN CORPUSCULAR HGB CONC 33.9 g/dL (33.0-37.0); MEAN PLATELET VOLUME 7.6 fL (7.2-11.7); RBC 4.87 Mil/uL (4.40-5.90); RED CELL DISTRIBUTION WIDTH 13.9 % (11.5-14.5); WHITE BLOOD COUNT 8.7 K/uL (4.8-10.8)
[2018-02-08 07:55] LABS: ALB/GLOB RATIO 1.2 (1.0-2.1); ALT/SGPT 19 U/L (21-72); AST/SGOT 12 U/L (17-59); BLOOD UREA NITROGEN 31 mg/dL (9-20); CALCIUM 8.9 mg/dl (8.6-10.4); GFR AFRICAN-AMERICAN > 60; GFR NON-AFRICAN AMERICAN 57
[2018-02-08] MEDS: oxyCODONE 30 mg Immediate Release Tab PO PRN ×2 (09:50→21:53)
--- NOTE | 2018-02-08 12:50 | CP.PCM.PN ---
Subjective - Date & Time of Evaluation Date of Evaluation: 02/08/18 Time of Evaluation: 12:47 - Subjective Subjective: Podiatry Progress note: Dr. Jain 57 year old male was seen and evaluated at bedside this morning. Patient is AAOx3 and appears in NAD. Denies of any acute overnight events. No new pedal complains. No F/N/V/C/SOB/CP/headache. Objective - Vital Signs/Intake and Output Vital Signs (last 24 hours): Temp Pulse Resp BP Pulse Ox 98.5 F 87 20 161/79 H 96 02/08/18 08:30 02/08/18 08:30 02/08/18 08:30 02/08/18 08:30 02/08/18 08:30 - Medications Medications: Current Medications Alprazolam (Xanax) 1 mg PO TID [facility] Last Admin: 02/08/18 09:47 Dose: 1 mg Clopidogrel Bisulfate (Plavix) 75 mg PO DAILY [facility] Last Admin: 02/08/18 09:47 Dose: 75 mg Dextrose (Dextrose 50% Inj) 0 ml IV STAT PRN; Protocol PRN Reason: Hypoglycemia Protocol Dextrose (Glutose 15) 0 gm PO ONCE PRN; Protocol PRN Reason: Hypoglycemia Protocol Glucagon (Glucagen Diagnostic Kit) 0 mg IM STAT PRN; Protocol PRN Reason: Hypoglycemia Protocol Heparin Sodium (Porcine) (Heparin) 5,000 units SC Q12 [facility] Last Admin: 02/08/18 09:57 Dose: 5,000 units Home Med (Canagliflozin [Invokana]) 300 mg PO DAILY [facility] Dextrose (Dextrose 5% In Water 1000 Ml) 1,000 mls @ 0 mls/hr IV .Q0M PRN; Protocol; Per Protocol PRN Reason: Hypoglycemia Protocol Insulin Glargine (Lantus) 80 unit SC HS [facility] Last Admin: 02/07/18 22:59 Dose: 80 unit Insulin Human Regular (Novolin R) 0 unit SC ACHS [facility] PRN Reason: Protocol Last Admin: 02/08/18 12:08 Dose: 2 u Metformin HCl (Glucophage) 1,000 mg PO BID [facility] Last Admin: 02/08/18 09:47 Dose: 1,000 mg Metoprolol Tartrate (Lopressor) 100 mg PO DAILY [facility] Last Admin: 02/08/18 09:47 Dose: 100 mg Oxycodone HCl (Oxycodone Immediate Release Tab) 30 mg PO Q6H PRN PRN Reason: Pain Last Admin: 02/08/18 09:50 Dose: 30 mg Tamsulosin HCl (Flomax) 0.4 mg PO DAILY [facility] Last Admin: 02/08/18 09:47 Dose: 0.4 mg - Labs Labs: 02/08/18 07:11 02/08/18 07:11 - Constitutional Appears: Well, Non-toxic, No Acute Distress - Extremities Exam Additional comments: Lower Extremity focused exam: Vasc: DP/PT pulses faintly palpable. CFT <3 secs x10. Temperature gradient warm to cool, proximal to distal b/l. Minimal edema noted to dorsal aspect of right foot Derm: No open lesions, No interdigital macerations noted. No erythema noted to either foot. Neuro: grossly diminished b/l. MSK: Mild pain on palpation to the R forefoot. Decreased ROM noted to joints distal to ankle b/l, medial buldging noted on the medial aspect of the right foot at the level of talo-navicular joint - Neurological Exam Neurological Exam: Alert, Awake, Oriented x3 - Psychiatric Exam Psychiatric exam: Normal Affect, Normal Mood Assessment and Plan - Assessment and Plan (Free Text) Assessment: 57 year old male patient with charcot change Plan: Patient seen and evaluated Discussed patient with Dr. Jain Labs, vitals and charts reviewed - afebrile, no leukocytosis Patient currently has no wounds/skin breaks to RLE Patient to remain WBAT in the surgical shoe Podiatry plans right foot Charcot reconstruction Patient will require medical optimization prior to surgery - please obtain while patient in house Patient will require cardiac clearance prior to surgery - please obtain while patient in house Podiatry to monitor patient while in-house
--- NOTE | 2018-02-08 14:14 | CP.PCM.HP ---
History of Present Illness - History of Present Illness History of Present Illness: COMPREHENSIVE HISTORY & PHYSICAL EXAM HPI Patient is admitted to the hospital because of the high potassium of 6.3, and a sugar of more than 350 on outpatient. Patient was evaluated in the triage repeat potassium was 5.7 and sugar 351. Patient is admitted for correction of electrolytes and sugar. On further inquiry with the , patient was eating extra amount of bananas and patient was also on lisinopril 20 mg twice a day. Patient was recently admitted in the hospital for right foot swelling. Patient was treated with by mouth antibiotics and sent home. After patient was discharged patient hit the right foot against the curb and nearly passed out since then patient was complaining of pain in the right foot. Patient was seen by the vice president of development at outpatient, and the x-ray done showed fracture of the 3 4 and 5 phalanx and metatarsal. Patient is awaiting surgery next week for correction of this fracture. PAST HIST. Patient has insulin-dependent diabetes on to insulin and oral medications and the last hemoglobin A1c done outpatient was 11.6% patient claims that he follows the ADA guidelines for diet. History of hypertension coronary artery disease stent stable. Patient has a history of osteomyelitis of the lower extremities last year. Patient has severe diabetic peripheral neuropathy with loss of sensation on both the feet PERSONAL HIST: Smoking. N Alcohol. N Allergy N Travel_- . FAMILY HIST : ROS : Constitutional: Negative for weight change, chills, night sweats, fatigue and usage of assist device. Eyes: Negative for redness, swelling, itching, discharge, vision changes, blurry vision, double vision, glaucoma, cataracts, Ears: Negative for hearing loss, ringing, , tinnitus, vertigo Nose: Negative for rhinorrhea, stuffiness, sniffing, itching, postnasal drip, discoloration, nasal congestion and epistaxis. Throat: Negative for throat clearing, sore throat, hoarseness, difficulty swallowing and difficulty speaking. Respiratory: Negative for cough, , sputum production, chest tightness, wheezing, pleuritic chest pain ,daytime somnolence, chronic cough, hemoptysis, snoring at night, Cardiovascular: Negative for chest pain, palpitations, orthopnea, PND, Edema of legs, leg cramps, angina, claudication, , irregular heartbeat, Neurology: Negative for irritability, muscle weakness, numbness and tingling, seizures, tremors, migraines, slurred speech, syncope, memory loss, mood changes , recurrent headaches Gastrointestinal: Negative for difficulty swallowing, diarrhea, constipation, black stools, rectal bleeding, nausea, flatulence, reflux, poor appetite, changes in bowel habits, abdominal pain Genitourinary: Negative for frequent urination, hematuria, discharge, incontinence, urinary retention, frequent UTI, Psychiatric: Negative for depression, anxiety/panic, suicidal tendencies, Musculoskeletal: Negative for swollen joints, back pain, , neck pain, morning stiffness of joints, . Skin: Negative for rash, ulcers, itching, dry skin and pigmented lesions. P/E: Constitutional: Appears stated age and in no apparent distress. Head: Normocephalic. Ears: External ear canals patent without inflammation. Tympanic membranes intact with normal light reflex and landmark. Eyes: Pupils are central, bilaterally equal, symmetrical and reacts to light with normal movements and no icterus or pallor. Nose: External nares are patent. Mucosa is pink Mouth-Throat: Good general appearance and condition. No post-pharyngeal/oropharyngeal erythema and tonsillar hypertrophy. Good dental hygiene. Neck-Lymphatic: Neck is supple with normal ROM, no thyromegaly, lymph nodes or masses. JVD is normal with no carotid bruit. Lungs: Clear to percussion and auscultation with bilateral normal air entry. Cardiovascular: S1 and S2 are normal with no murmurs, gallops and rub. GI Exam: No hepatomegaly. Abdomen is soft and non-tender. No Organomegaly , masses or hernias are evident and bowel sounds are normal and active. Neurology: Higher function and all cranial nerves intact, with no gross motor or sensory deficit. Superficial and deep reflexes are normal with downwards planters. No cerebellar deficit with normal gait. Musculoskeletal: No tender spots with normal curvature of the spine with no swelling or restricted ROM of the small and large joints. Extremities: Homans sign absent. Intact pulses with no pitting edema, calf tenderness or skin color changes. The right foot is in a soft bruit Skin: No rash, eruptions or abnormal skin pigmentation LAB/RADIOLOGY: ASSESMENT : Hyperkalemia probably secondary to CAM inhibitor plus oral ingestion of potassium containing food Uncontrolled diabetes probably underline fracture stress or inflammation. Hypertension, coronary artery disease with stent stable PLAN: We will correct the potassium with oral Kayexalate and monitor the sugar and aggressively treat with insulin [id number]. Present on Admission - Present on Admission Any Indicators Present on Admission: Yes History of DVT/PE: No History of Uncontrolled Diabetes: Yes Urinary Catheter: No Decubitus Ulcer Present: No Past Patient History - Infectious Disease Hx of Infectious Diseases: None - Past Medical History & Family History Past Medical History?: Yes - Past Social History Smoking Status: Former Smoker - CARDIAC Hx Hypercholesterolemia: Yes Hx Hypertension: Yes - PULMONARY Hx Respiratory Disorders: No - NEUROLOGICAL Hx Neurological Disorder: Yes Hx Dizziness: Yes - HEENT Hx HEENT Problems: Yes Hx Cataracts: Yes (herman cataract surgery) - RENAL Hx Chronic Kidney Disease: No - ENDOCRINE/METABOLIC Hx Diabetes Mellitus Type 2: Yes - HEMATOLOGICAL/ONCOLOGICAL Hx Blood Disorders: No - INTEGUMENTARY Hx Dermatological Problems: Yes Other/Comment: left big toe - MUSCULOSKELETAL/RHEUMATOLOGICAL Hx Arthritis: Yes - GASTROINTESTINAL Hx Gastrointestinal Disorders: Yes Hx Hemorrhoids: Yes - GENITOURINARY/GYNECOLOGICAL Hx Genitourinary Disorders: No - PSYCHIATRIC Hx Anxiety: Yes Hx Substance Use: No - SURGICAL HISTORY Hx Coronary Stent: Yes (2001,2009) - ANESTHESIA Hx Anesthesia: Yes Hx Anesthesia Reactions: No Meds Allergies/Adverse Reactions: Allergies Allergy/AdvReac Type Severity Reaction Status Date / Time seasonal Allergy Uncoded 02/07/18 13:38 Results - Vital Signs Recent Vital Signs: Last Vital Signs Temp 98.5 F 02/08/18 08:30 Pulse 87 02/08/18 08:30 Resp 20 02/08/18 08:30 BP 161/79 H 02/08/18 08:30 Pulse Ox 96 02/08/18 08:30 - Labs Result Diagrams: 02/08/18 07:11 02/08/18 07:11 Labs: Laboratory Results - last 24 hr 02/07/18 02/07/18 02/07/18 14:33 14:33 14:35 WBC 9.5 RBC 5.06 Hgb 14.5 Hct 43.1 MCV 85.1 MCH 28.7 MCHC 33.7 RDW 14.0 Plt Count 330 MPV 7.5 Neut % (Auto) 68.0 Lymph % (Auto) 22.9 [place] % (Auto) 6.3 Eos % (Auto) 2.2 Baso % (Auto) 0.6 Neut # (Auto) 6.5 Lymph # (Auto) 2.2 [place] # (Auto) 0.6 Eos # (Auto) 0.2 Baso # (Auto) 0.1 pO2 33 VBG pH 7.32 VBG pCO2 42 VBG HCO3 20.5 VBG Total CO2 22.9 VBG O2 Sat (Calc) 70.3 H VBG Base Excess -4.3 L VBG Potassium 5.7 H Glucose 431 H* Lactate 2.0 Crit Value Called To stephanie Soria Crit Value Called By Lala riley Crit Value Read Back Y Blood Gas Notified Time 1439 Sodium 134 132.0 Potassium 5.7 H Chloride 99 97.0 L Carbon Dioxide 20 L Anion Gap 21 H BUN 40 H Creatinine 1.7 H Est GFR ( Amer) 51 Est GFR (Non-Af Amer) 42 POC Glucose (mg/dL) Random Glucose 426 H* D Calcium 9.6 Total Bilirubin 0.7 AST 12 L D ALT 16 L D Alkaline Phosphatase 199 H D Total Protein 7.7 Albumin 4.2 Globulin 3.5 Albumin/Globulin Ratio 1.2 Venous Blood Potassium 5.7 H Urine Color Urine Clarity Urine pH Ur Specific [place] Urine Protein Urine Glucose (UA) Urine Ketones Urine Blood Urine Nitrate Urine Bilirubin Urine Urobilinogen Ur Leukocyte Esterase Urine WBC (Auto) Urine RBC (Auto) 02/07/18 02/07/18 02/07/18 17:02 21:27 22:39 WBC RBC Hgb Hct MCV MCH MCHC RDW Plt Count MPV Neut % (Auto) Lymph % (Auto) [place] % (Auto) Eos % (Auto) Baso % (Auto) Neut # (Auto) Lymph # (Auto) [place] # (Auto) Eos # (Auto) Baso # (Auto) pO2 VBG pH VBG pCO2 VBG HCO3 VBG Total CO2 VBG O2 Sat (Calc) VBG Base Excess VBG Potassium Glucose Lactate Crit Value Called To Crit Value Called By Crit Value Read Back Blood Gas Notified Time Sodium 139 Potassium 5.3 H Chloride 100 Carbon Dioxide 24 Anion Gap 20 BUN 39 H Creatinine 1.5 Est GFR ( Amer) 58 Est GFR (Non-Af Amer) 48 POC Glucose (mg/dL) 147 H 222 H Random Glucose 224 H Calcium 9.4 Total Bilirubin 0.7 AST 12 L ALT 12 L D Alkaline Phosphatase 182 H Total Protein 7.5 Albumin 4.1 Globulin 3.3 Albumin/Globulin Ratio 1.3 Venous Blood Potassium Urine Color Urine Clarity Urine pH Ur Specific [place] Urine Protein Urine Glucose (UA) Urine Ketones Urine Blood Urine Nitrate Urine Bilirubin Urine Urobilinogen Ur Leukocyte Esterase Urine WBC (Auto) Urine RBC (Auto) 02/08/18 02/08/18 02/08/18 04:03 06:17 07:11 WBC 8.7 RBC 4.87 Hgb 13.9 Hct 41.1 MCV 84.4 MCH 28.6 MCHC 33.9 RDW 13.9 Plt Count 292 MPV 7.6 Neut % (Auto) Lymph % (Auto) [place] % (Auto) Eos % (Auto) Baso % (Auto) Neut # (Auto) Lymph # (Auto) [place] # (Auto) Eos # (Auto) Baso # (Auto) pO2 VBG pH VBG pCO2 VBG HCO3 VBG Total CO2 VBG O2 Sat (Calc) VBG Base Excess VBG Potassium Glucose Lactate Crit Value Called To Crit Value Called By Crit Value Read Back Blood Gas Notified Time Sodium Potassium Chloride Carbon Dioxide Anion Gap BUN Creatinine Est GFR ( Amer) Est GFR (Non-Af Amer) POC Glucose (mg/dL) 149 H Random Glucose Calcium Total Bilirubin AST ALT Alkaline Phosphatase Total Protein Albumin Globulin Albumin/Globulin Ratio Venous Blood Potassium Urine Color Yellow Urine Clarity Clear Urine pH 5.0 Ur Specific [place] 1.022 Urine Protein 1+ H Urine Glucose (UA) 3+ H Urine Ketones Negative Urine Blood Negative Urine Nitrate Negative Urine Bilirubin Negative Urine Urobilinogen Normal Ur Leukocyte Esterase Neg Urine WBC (Auto) 1 Urine RBC (Auto) < 1 02/08/18 02/08/18 07:11 11:28 WBC RBC Hgb Hct MCV MCH MCHC RDW Plt Count MPV Neut % (Auto) Lymph % (Auto) [place] % (Auto) Eos % (Auto) Baso % (Auto) Neut # (Auto) Lymph # (Auto) [place] # (Auto) Eos # (Auto) Baso # (Auto) pO2 VBG pH VBG pCO2 VBG HCO3 VBG Total CO2 VBG O2 Sat (Calc) VBG Base Excess VBG Potassium Glucose Lactate Crit Value Called To Crit Value Called By Crit Value Read Back Blood Gas Notified Time Sodium 142 Potassium 5.0 Chloride 103 Carbon Dioxide 25 Anion Gap 19 BUN 31 H Creatinine 1.3 Est GFR ( Amer) > 60 Est GFR (Non-Af Amer) 57 POC Glucose (mg/dL) 193 H Random Glucose 139 H Calcium 8.9 Total Bilirubin 0.7 AST 12 L ALT 19 L D Alkaline Phosphatase 164 H Total Protein 7.1 Albumin 4.0 Globulin 3.2 Albumin/Globulin Ratio 1.2 Venous Blood Potassium Urine Color Urine Clarity Urine pH Ur Specific [place] Urine Protein Urine Glucose (UA) Urine Ketones Urine Blood Urine Nitrate Urine Bilirubin Urine Urobilinogen Ur Leukocyte Esterase Urine WBC (Auto) Urine RBC (Auto)
--- NOTE | 2018-02-08 14:17 | CP.PCM.PN ---
Subjective - Date & Time of Evaluation Date of Evaluation: 02/08/18 Time of Evaluation: 14:15 - Subjective Subjective: CHIEF COMPLAINTS TODAY : Patient is complaining of pain in the right foot. Potassium is now corrected to 5.0 ROS. HEENT : N. Resp : No cough, wheezing ,pleuritic CP ,or hemoptysis Cardio : No anginal CP, PND, orthopnea, palpitation GI : No abd.pain, n/v ,diarrhea or GI bleeding . FOOD AND BEVERAGE SERVICE MANAGER : No headache, vertigo, focal deficit. Musculoskel : No joint swelling , Derm : No rash Psych : Normal affect. Ext : No swelling ,calf pain PE. Pt. is alert awake in no distress. V.S As noted in the chart Head ,ear nose,throat and eyes : Normal. Neck : Supple with normal carotids. Lungs: Clear air entry. Heart : S1 & S2 normal with S4. No murmur. Abd : Soft non tender with normal bowel sounds. Neuro : Moves all ext. with no localized deficit. Ext : No edema with intact pulses.Non tender calves right foot is in a soft boot. Derm : No rashes or decubitus ulcer. LABS/RADIOLOGY: ASSESSMENT/PLAN : Potassium is normalized. Sugar is under control now, the levels are below 150 mg/dL since yesterday We will continue monitoring the electrolytes and sugar. Objective - Vital Signs/Intake and Output Vital Signs (last 24 hours): Temp Pulse Resp BP Pulse Ox 98.5 F 87 20 161/79 H 96 02/08/18 08:30 02/08/18 08:30 02/08/18 08:30 02/08/18 08:30 02/08/18 08:30 - Medications Medications: Current Medications Alprazolam (Xanax) 1 mg PO TID [facility] Last Admin: 02/08/18 13:15 Dose: 1 mg Clopidogrel Bisulfate (Plavix) 75 mg PO DAILY [facility] Last Admin: 02/08/18 09:47 Dose: 75 mg Dextrose (Dextrose 50% Inj) 0 ml IV STAT PRN; Protocol PRN Reason: Hypoglycemia Protocol Dextrose (Glutose 15) 0 gm PO ONCE PRN; Protocol PRN Reason: Hypoglycemia Protocol Glucagon (Glucagen Diagnostic Kit) 0 mg IM STAT PRN; Protocol PRN Reason: Hypoglycemia Protocol Heparin Sodium (Porcine) (Heparin) 5,000 units SC Q12 [facility] Last Admin: 02/08/18 09:57 Dose: 5,000 units Home Med (Canagliflozin [Invokana]) 300 mg PO DAILY [facility] Dextrose (Dextrose 5% In Water 1000 Ml) 1,000 mls @ 0 mls/hr IV .Q0M PRN; Protocol; Per Protocol PRN Reason: Hypoglycemia Protocol Insulin Glargine (Lantus) 80 unit SC HS [facility] Last Admin: 02/07/18 22:59 Dose: 80 unit Insulin Human Regular (Novolin R) 0 unit SC ACHS [facility] PRN Reason: Protocol Last Admin: 02/08/18 12:08 Dose: 2 u Metformin HCl (Glucophage) 1,000 mg PO BID [facility] Last Admin: 02/08/18 09:47 Dose: 1,000 mg Metoprolol Tartrate (Lopressor) 100 mg PO DAILY [facility] Last Admin: 02/08/18 09:47 Dose: 100 mg Oxycodone HCl (Oxycodone Immediate Release Tab) 30 mg PO Q6H PRN PRN Reason: Pain Last Admin: 02/08/18 09:50 Dose: 30 mg Tamsulosin HCl (Flomax) 0.4 mg PO DAILY [facility] Last Admin: 02/08/18 09:47 Dose: 0.4 mg - Labs Labs: 02/08/18 07:11 02/08/18 07:11
[2018-02-08] MEDS: (Lantus) Insulin Glargine, Recombinant SC SCH (21:55)
[2018-02-09] MEDS: (Novolin R) Insulin Human Regular 100 units/ml vial SC SCH ×4 (06:43→22:51)
[2018-02-09 07:57] LABS: ALB/GLOB RATIO 1.3 (1.0-2.1); ALBUMIN 4.3 g/dL (3.5-5.0); ALT/SGPT 10 U/L (21-72); AST/SGOT 18 U/L (17-59); BLOOD UREA NITROGEN 24 mg/dL (9-20); CALCIUM 9.5 mg/dl (8.6-10.4); GFR AFRICAN-AMERICAN > 60; GFR NON-AFRICAN AMERICAN > 60
--- NOTE | 2018-02-09 15:25 | CP.PCM.PN ---
Subjective - Date & Time of Evaluation Date of Evaluation: 02/09/18 Time of Evaluation: 15:23 - Subjective Subjective: CHIEF COMPLAINTS TODAY : Patient is complaining of pain in the right foot. Potassium is now corrected to 3.6 ROS. HEENT : N. Resp : No cough, wheezing ,pleuritic CP ,or hemoptysis Cardio : No anginal CP, PND, orthopnea, palpitation GI : No abd.pain, n/v ,diarrhea or GI bleeding . TRAUMA SURGEON : No headache, vertigo, focal deficit. Musculoskel : No joint swelling , Derm : No rash Psych : Normal affect. Ext : No swelling ,calf pain PE. Pt. is alert awake in no distress. V.S As noted in the chart Head ,ear nose,throat and eyes : Normal. Neck : Supple with normal carotids. Lungs: Clear air entry. Heart : S1 & S2 normal with S4. No murmur. Abd : Soft non tender with normal bowel sounds. Neuro : Moves all ext. with no localized deficit. Ext : No edema with intact pulses.Non tender calves right foot is in a soft boot. Derm : No rashes or decubitus ulcer. LABS/RADIOLOGY: ASSESSMENT/PLAN : PATIENT STILL HAS HER SUGAR IN THE RANGE OF 250 SOMETIMES 300. wE WILL ADD nph 30 UNITS TWICE A DAY TO THE PRESENT REGIMEN. wILL MONITOR THE SUGAR CLOSELY pOTASSIUM HAS BEEN NORMALIZED. Objective - Vital Signs/Intake and Output Vital Signs (last 24 hours): Temp Pulse Resp BP Pulse Ox 98.4 F 87 20 128/89 97 02/09/18 08:15 02/09/18 08:15 02/09/18 08:15 02/09/18 08:15 02/09/18 08:15 - Medications Medications: Current Medications Alprazolam (Xanax) 1 mg PO TID [facility] Last Admin: 02/09/18 14:04 Dose: 1 mg Clopidogrel Bisulfate (Plavix) 75 mg PO DAILY [facility] Last Admin: 02/09/18 10:25 Dose: 75 mg Dextrose (Dextrose 50% Inj) 0 ml IV STAT PRN; Protocol PRN Reason: Hypoglycemia Protocol Dextrose (Glutose 15) 0 gm PO ONCE PRN; Protocol PRN Reason: Hypoglycemia Protocol Glucagon (Glucagen Diagnostic Kit) 0 mg IM STAT PRN; Protocol PRN Reason: Hypoglycemia Protocol Heparin Sodium (Porcine) (Heparin) 5,000 units SC Q12 [facility] Last Admin: 02/09/18 10:26 Dose: 5,000 units Home Med (Canagliflozin [Invokana]) 300 mg PO DAILY [facility] Dextrose (Dextrose 5% In Water 1000 Ml) 1,000 mls @ 0 mls/hr IV .Q0M PRN; Protocol; Per Protocol PRN Reason: Hypoglycemia Protocol Insulin Glargine (Lantus) 80 unit SC HS [facility] Last Admin: 02/08/18 21:55 Dose: 80 unit Insulin Human NPH (Novolin N) 30 unit SC BID [facility] Insulin Human Regular (Novolin R) 0 unit SC ACHS [facility] PRN Reason: Protocol Last Admin: 02/09/18 12:36 Dose: 6 units Metformin HCl (Glucophage) 1,000 mg PO BID [facility] Last Admin: 02/09/18 10:26 Dose: 1,000 mg Metoprolol Tartrate (Lopressor) 100 mg PO DAILY [facility] Last Admin: 02/09/18 10:25 Dose: 100 mg Oxycodone HCl (Oxycodone Immediate Release Tab) 30 mg PO Q6H PRN PRN Reason: Pain Last Admin: 02/08/18 21:53 Dose: 30 mg Tamsulosin HCl (Flomax) 0.4 mg PO DAILY [facility] Last Admin: 02/09/18 10:26 Dose: 0.4 mg - Labs Labs: 02/08/18 07:11 02/09/18 07:15
[2018-02-09] MEDS: (Novolin N) Insulin Human Isophane (NPH) 100 u/ml 10 ml vial SC SCH (17:41)
[2018-02-09] MEDS: (Lantus) Insulin Glargine, Recombinant SC SCH (23:48)
[2018-02-10 08:26] VITALS: BP 150/89; TEMP 98.2; O2SAT 96
[2018-02-10] MEDS: (Novolin R) Insulin Human Regular 100 units/ml vial SC SCH ×2 (08:43→13:15)
[2018-02-10] MEDS: (Novolin N) Insulin Human Isophane (NPH) 100 u/ml 10 ml vial SC SCH (09:54)
[2018-02-10 12:15] VITALS: PULSE 84
[2018-02-10] MEDS ORDERED: (Novolin N) Insulin Human Isophane (NPH) 100 u/ml 10 ml vial SC SCH (12:35)
--- NOTE | 2018-02-10 13:54 | CP.PCM.DIS ---
Provider - Provider Date of Admission: 02/07/18 15:09 Attending physician: Renee Ordonez MD Time Spent in preparation of Discharge (in minutes): 35 Hospital Course - Lab Results Lab Results: Most Recent Lab Values WBC 8.7 K/uL (4.8-10.8) 02/08/18 07:11 RBC 4.87 Mil/uL (4.40-5.90) 02/08/18 07:11 Hgb 13.9 g/dL (12.0-18.0) 02/08/18 07:11 Hct 41.1 % (35.0-51.0) 02/08/18 07:11 MCV 84.4 fL (80.0-94.0) 02/08/18 07:11 MCH 28.6 pg (27.0-31.0) 02/08/18 07:11 MCHC 33.9 g/dL (33.0-37.0) 02/08/18 07:11 RDW 13.9 % (11.5-14.5) 02/08/18 07:11 Plt Count 292 K/uL (130-400) 02/08/18 07:11 MPV 7.6 fL (7.2-11.7) 02/08/18 07:11 Neut % (Auto) 68.0 % (50.0-75.0) 02/07/18 14:33 Lymph % (Auto) 22.9 % (20.0-40.0) 02/07/18 14:33 [place] % (Auto) 6.3 % (0.0-10.0) 02/07/18 14:33 Eos % (Auto) 2.2 % (0.0-4.0) 02/07/18 14:33 Baso % (Auto) 0.6 % (0.0-2.0) 02/07/18 14:33 Neut # (Auto) 6.5 K/uL (1.8-7.0) 02/07/18 14:33 Lymph # (Auto) 2.2 K/uL (1.0-4.3) 02/07/18 14:33 [place] # (Auto) 0.6 K/uL (0.0-0.8) 02/07/18 14:33 Eos # (Auto) 0.2 K/uL (0.0-0.7) 02/07/18 14:33 Baso # (Auto) 0.1 K/uL (0.0-0.2) 02/07/18 14:33 pO2 33 mm/Hg (30-55) 02/07/18 14:35 VBG pH 7.32 (7.32-7.43) 02/07/18 14:35 VBG pCO2 42 mmHg (40-60) 02/07/18 14:35 VBG HCO3 20.5 mmol/L 02/07/18 14:35 VBG Total CO2 22.9 mmol/L (22-28) 02/07/18 14:35 VBG O2 Sat (Calc) 70.3 % (40-65) H 02/07/18 14:35 VBG Base Excess -4.3 mmol/L (0.0-2.0) L 02/07/18 14:35 VBG Potassium 5.7 mmol/L (3.6-5.2) H 02/07/18 14:35 Sodium 132.0 mmol/l (132-148) 02/07/18 14:35 Chloride 97.0 mmol/L (98-107) L 02/07/18 14:35 Glucose 431 mg/dl (75-110) H* 02/07/18 14:35 Lactate 2.0 mmol/L (0.7-2.1) 02/07/18 14:35 Crit Value Called To stephanie Soria 02/07/18 14:35 Crit Value Called By Lala riley 02/07/18 14:35 Crit Value Read Back Y 02/07/18 14:35 Blood Gas Notified Time 1439 02/07/18 14:35 Sodium 140 mmol/L (132-148) 02/09/18 07:15 Potassium 4.6 mmol/L (3.6-5.2) 02/09/18 07:15 Chloride 103 mmol/L (98-107) 02/09/18 07:15 Carbon Dioxide 23 mmol/L (22-30) 02/09/18 07:15 Anion Gap 19 (10-20) 02/09/18 07:15 BUN 24 mg/dL (9-20) H 02/09/18 07:15 Creatinine 1.2 mg/dL (0.8-1.5) 02/09/18 07:15 Est GFR ( Amer) > 60 02/09/18 07:15 Est GFR (Non-Af Amer) > 60 02/09/18 07:15 POC Glucose (mg/dL) 354 mg/dL (65-110) H 02/10/18 11:07 Random Glucose 198 mg/dL (75-110) H 02/09/18 07:15 Calcium 9.5 mg/dl (8.6-10.4) 02/09/18 07:15 Total Bilirubin 0.7 mg/dL (0.2-1.3) 02/09/18 07:15 AST 18 U/L (17-59) 02/09/18 07:15 ALT 10 U/L (21-72) L D 02/09/18 07:15 Alkaline Phosphatase 187 U/L (38-126) H 02/09/18 07:15 Total Protein 7.7 g/dL (6.3-8.3) 02/09/18 07:15 Albumin 4.3 g/dL (3.5-5.0) 02/09/18 07:15 Globulin 3.4 gm/dL (2.2-3.9) 02/09/18 07:15 Albumin/Globulin Ratio 1.3 (1.0-2.1) 02/09/18 07:15 Venous Blood Potassium 5.7 mmol/L (3.6-5.2) H 02/07/18 14:35 Urine Color Yellow (YELLOW) 02/08/18 04:03 Urine Clarity Clear (Clear) 02/08/18 04:03 Urine pH 5.0 (5.0-8.0) 02/08/18 04:03 Ur Specific Pi[place]on 1.022 (1.003-1.030) 02/08/18 04:03 Urine Protein 1+ mg/dL (NEGATIVE) H 02/08/18 04:03 Urine Glucose (UA) 3+ mg/dL (Normal) H 02/08/18 04:03 Urine Ketones Negative mg/dL (NEGATIVE) 02/08/18 04:03 Urine Blood Negative (NEGATIVE) 02/08/18 04:03 Urine Nitrate Negative (NEGATIVE) 02/08/18 04:03 Urine Bilirubin Negative (NEGATIVE) 02/08/18 04:03 Urine Urobilinogen Normal mg/dL (0.2-1.0) 02/08/18 04:03 Ur Leukocyte Esterase Neg Rachel/uL (Negative) 02/08/18 04:03 Urine WBC (Auto) 1 /hpf (0-5) 02/08/18 04:03 Urine RBC (Auto) < 1 /hpf (0-3) 02/08/18 04:03 - Hospital Course Hospital Course: Patient is admitted to the hospital because of the high potassium of 6.3, and a sugar of more than 350 on outpatient. Patient was evaluated in the triage repeat potassium was 5.7 and sugar 351. Patient is admitted for correction of electrolytes and sugar. On further inquiry with the , patient was eating extra amount of bananas and patient was also on lisinopril 20 mg twice a day. Patient was recently admitted in the hospital for right foot swelling. Patient was treated with by mouth antibiotics and sent home. After patient was discharged patient hit the right foot against the curb and nearly passed out since then patient was complaining of pain in the right foot. Patient was seen by the rand tacker at outpatient, and the x-ray done showed fracture of the 3 4 and 5 phalanx and metatarsal. Patient is awaiting surgery next week for correction of this fracture. after 1 dose of by mouth Kayexalate if potassium normalized to less than 5. Patient's sugar continued to remain high and on a sliding scale, NPH and Lantus patient sugar remained under 200. Case was discussed with the rand tacker and patient is scheduled for OR for the fracture of the right foot on February 13, 2018. Currently patient is stable will discharge and will follow as an outpatient for OR. Patient was instructed not to take lisinopril will add Norvasc. Discharge Plan - Follow Up Plan Condition: STABLE Disposition: HOME/ ROUTINE Instructions: Hyperkalemia (DC), Hyperglycemia, Adult (DC) Referrals: Renee Ordonez MD [Staff Provider] -
--- NOTE | 2018-02-10 13:59 | CP.PCM.PN ---
Subjective - Date & Time of Evaluation Date of Evaluation: 02/10/18 Time of Evaluation: 13:57 - Subjective Subjective: 57 years old male with a history of coronary artery disease and stent. Patient had a last echo done a few months ago which showed normal left ventricle ejection fraction. Stress echo showed no inducible ischemia. Currently patient's cardiac status is stable. Patient sugars are also stable on multiple insulin regimen and the potassium is normalized after discontinuing lisinopril and diet modification. Patient is 4 or for correction of right foot fracture on February 13, 2018 Patient is cleared medically and cardiac point of view for the surgery of the right foot. Objective - Vital Signs/Intake and Output Vital Signs (last 24 hours): Temp Pulse Resp BP Pulse Ox 98.2 F 84 20 150/89 96 02/10/18 07:05 02/10/18 07:45 02/10/18 07:05 02/10/18 07:05 02/10/18 07:05 - Medications Medications: Current Medications Alprazolam (Xanax) 1 mg PO TID [facility] Last Admin: 02/10/18 09:55 Dose: 1 mg Clopidogrel Bisulfate (Plavix) 75 mg PO DAILY [facility] Last Admin: 02/10/18 09:55 Dose: 75 mg Dextrose (Dextrose 50% Inj) 0 ml IV STAT PRN; Protocol PRN Reason: Hypoglycemia Protocol Dextrose (Glutose 15) 0 gm PO ONCE PRN; Protocol PRN Reason: Hypoglycemia Protocol Glucagon (Glucagen Diagnostic Kit) 0 mg IM STAT PRN; Protocol PRN Reason: Hypoglycemia Protocol Heparin Sodium (Porcine) (Heparin) 5,000 units SC Q12 [facility] Last Admin: 02/10/18 09:55 Dose: 5,000 units Home Med (Canagliflozin [Invokana]) 300 mg PO DAILY [facility] Dextrose (Dextrose 5% In Water 1000 Ml) 1,000 mls @ 0 mls/hr IV .Q0M PRN; Protocol; Per Protocol PRN Reason: Hypoglycemia Protocol Insulin Glargine (Lantus) 80 unit SC HS [facility] Last Admin: 02/09/18 23:48 Dose: 80 unit Insulin Human NPH (Novolin N) 30 unit SC BID [facility] Insulin Human Regular (Novolin R) 0 unit SC ACHS [facility] PRN Reason: Protocol Last Admin: 02/10/18 13:15 Dose: 8 units Metformin HCl (Glucophage) 1,000 mg PO BID [facility] Last Admin: 02/10/18 09:55 Dose: 1,000 mg Metoprolol Tartrate (Lopressor) 100 mg PO DAILY [facility] Last Admin: 02/10/18 09:55 Dose: 100 mg Oxycodone HCl (Oxycodone Immediate Release Tab) 30 mg PO Q6H PRN PRN Reason: Pain Last Admin: 02/08/18 21:53 Dose: 30 mg Tamsulosin HCl (Flomax) 0.4 mg PO DAILY [facility] Last Admin: 02/10/18 09:55 Dose: 0.4 mg - Labs Labs: 02/08/18 07:11 02/09/18 07:15
--- NOTE | 2018-02-11 07:01 | CARD ---
APPROVED REPORT Date of service: 02/07/2018 EKG Measurement Heart [id number] MD [id number] <Conclusion> Normal sinus rhythm Nonspecific ST and T wave abnormality Abnormal ECG
== END 2018-02-10 15:00 | disposition home or self-care (01) ==
LOC: C.ER 13:13 → C.9E 15:09 → C.6T 16:53
PROVIDERS: ADMIT Internal Medicine Cardiovascular Disease; ATTEND Internal Medicine Cardiovascular Disease
DX: E87.5 Hyperkalemia (principal); E11.65 Type 2 diabetes mellitus with hyperglycemia; E11.42 Type 2 diabetes mellitus with diabetic polyneuropathy; E11.610 Type 2 diabetes mellitus with diabetic neuropathic arthropathy; L03.115 Cellulitis of right lower limb; I10 Essential (primary) hypertension; I25.10 Atherosclerotic heart disease of native coronary artery without angina pectoris; E78.00 Pure hypercholesterolemia, unspecified; N40.0 Benign prostatic hyperplasia without lower urinary tract symptoms; Z79.4 Long term (current) use of insulin; Z87.891 Personal history of nicotine dependence; Z95.1 Presence of aortocoronary bypass graft; Z95.5 Presence of coronary angioplasty implant and graft; Z79.899 Other long term (current) drug therapy
CPT/HCPCS: 36415; 71046; 80053; 81001; 82803; 82948; 85025; 85027; 93005; 97116; 97162; 99285; G0378; G8978; G8979; J1644; J7030

== ENCOUNTER 2018-02-13 05:51 | Inpatient (IN) | payer MEDICARE ==
[2018-02-13] MEDS ORDERED: ceFAZolin IV 1 gm in Dextrose 0 GM/0 ML BAG IVPB ONE (07:35)
[2018-02-13] MEDS ORDERED: Lidocaine 2% MPF (5 ml) Inj ONE (07:35)
[2018-02-13] MEDS ORDERED: ceFAZolin IV 2 gm in Dextrose 2 GM/50 ML BAG IVPB ONE (07:36)
[2018-02-13] MEDS ORDERED: Bupivacaine 0.25% 20 ML INJ IJ ONE (07:36)
[2018-02-13] MEDS ORDERED: Midazolam 2 MG/2 ML VIAL ONE (07:51)
[2018-02-13] MEDS ORDERED: Propofol 10 mg/ml Inj (20 ML) ONE (07:52)
[2018-02-13] MEDS ORDERED: Rocuronium 10 mg/ml (5 ml) ONE (09:22)
[2018-02-13] MEDS: Bupivacaine 0.5% Inj(30mL) IJ ONE ×2 (11:32→11:54)
[2018-02-13] MEDS: Bupivacaine Liposomal Inj 20 ml INFIL ONE ×2 (11:33→11:54)
[2018-02-13] MEDS: Bacitracin Ointment 30 GM TUBE ONE ×2 (11:33→11:57)
[2018-02-13] MEDS ORDERED: Phenylephrine 10 mg/ml Inj ONE (11:45)
--- NOTE | 2018-02-13 12:31 | PCM.SURG1 ---
Surgeon's Initial Post Op Note - Surgeon's Notes Surgeon: Dr. Gui Jain Geriatric Psychiatrist: Shmuel Sommer, PGY-3; Agueda Colon, PGY-3; Sally Grissom, PGY-3 Type of Anesthesia: General LMA Anesthesia Administered By: Dr. Jose MD Pre-Operative Diagnosis: 1) Right foot Charcot Arthropathy with midfoot collapse ,. 2) Right foot gastrocnemius equinus contracture Operative Findings: See dictation. I: 40 1:1 mixture of exparel to 0.5% marcaine plain; 3.5cc of MTF DBM. M: 0.062 inch olive wire (x2); 5.0mm Schanz pins (x3), , 2-0 vycryl, 4-0 vicryl, 4-0 prolene Post-Operative Diagnosis: 1) Right foot Charcot Arthropathy with midfoot collapse,. 2) Right foot gastrocnemius equinus contracture Operation Performed: 1) Right foot Charcot Arthropathy reconstrucxtion with osteotomy, resection of non-viable bone with allograft bone spacers. 2) Right foot endoscopic gastrocnemius recession. 3) Application of Beverly spatial external fixator Specimen/Specimens Removed: Right foot tarsal bones Estimated Blood Loss: EBL {In ML}: 50 Blood Products Given: N/A Drains Used: No Drains Post-Op Condition: Good Date of Surgery/Procedure: 02/13/18 Time of Surgery/Procedure: 12:33
[2018-02-13] MEDS: HYDROmorphone 0.5 mg/0.5 ml ISec IVP PRN ×4 (12:36→15:00)
--- NOTE | 2018-02-13 13:06 | RAD ---
Date of service: 02/13/2018 PROCEDURE: Intraoperative Fluoroscopy. HISTORY: RT. FOOT CHARCOT ATHROPATHY WIT MID. FOOT COLLAPSE FINDINGS: Fluoroscopic assistance was provided for open reduction internal fixation. Please refer to the operative report from NAN Siegel. Total fluoroscopic time (continuous mode) utilized during the procedure (seconds) 44.3
--- NOTE | 2018-02-13 14:30 | CP.PCM.HP ---
History of Present Illness - History of Present Illness History of Present Illness: COMPREHENSIVE HISTORY & PHYSICAL EXAM HPI Patient is admitted after the OR for the correction of the fracture of the right foot. Currently patient is postop complaining of pain in the right foot. PAST HIST. Recently patient had a fall and had fracture of the right metatarsal and phalanx and patient underwent the OR for correction of the fracture. Patient also has a short cord foot. Patient is a history of type 2 diabetes with severe peripheral neuropathy history of coronary artery disease with stent and history of hypertension. 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 N Alcohol. N Allergy N Travel_- . FAMILY HIST : ROS : Constitutional: Negative for weight change, chills, night sweats, fatigue and usage of assist device. Eyes: Negative for redness, swelling, itching, discharge, vision changes, blurry vision, double vision, glaucoma, cataracts, Ears: Negative for hearing loss, ringing, , tinnitus, vertigo Nose: Negative for rhinorrhea, stuffiness, sniffing, itching, postnasal drip, discoloration, nasal congestion and epistaxis. Throat: Negative for throat clearing, sore throat, hoarseness, difficulty swallowing and difficulty speaking. Respiratory: Negative for cough, , sputum production, chest tightness, wheezing, pleuritic chest pain ,daytime somnolence, chronic cough, hemoptysis, snoring at night, Cardiovascular: Negative for chest pain, palpitations, orthopnea, PND, Edema of legs, leg cramps, angina, claudication, , irregular heartbeat, Neurology: Negative for irritability, muscle weakness, numbness and tingling, seizures, tremors, migraines, slurred speech, syncope, memory loss, mood changes , recurrent headaches Gastrointestinal: Negative for difficulty swallowing, diarrhea, constipation, black stools, rectal bleeding, nausea, flatulence, reflux, poor appetite, changes in bowel habits, abdominal pain Genitourinary: Negative for frequent urination, hematuria, discharge, incontinence, urinary retention, frequent UTI, Psychiatric: Negative for depression, anxiety/panic, suicidal tendencies, Musculoskeletal: Complains of pain in the right foot Skin: Negative for rash, ulcers, itching, dry skin and pigmented lesions. P/E: Constitutional: Appears stated age and in no apparent distress. Head: Normocephalic. Ears: External ear canals patent without inflammation. Tympanic membranes intact with normal light reflex and landmark. Eyes: Pupils are central, bilaterally equal, symmetrical and reacts to light with normal movements and no icterus or pallor. Nose: External nares are patent. Mucosa is pink Mouth-Throat: Good general appearance and condition. No post-pharyngeal/oropharyngeal erythema and tonsillar hypertrophy. Good dental hygiene. Neck-Lymphatic: Neck is supple with normal ROM, no thyromegaly, lymph nodes or masses. JVD is normal with no carotid bruit. Lungs: Clear to percussion and auscultation with bilateral normal air entry. Cardiovascular: S1 and S2 are normal with no murmurs, gallops and rub. GI Exam: No hepatomegaly. Abdomen is soft and non-tender. No Organomegaly , masses or hernias are evident and bowel sounds are normal and active. Neurology: Higher function and all cranial nerves intact, with no gross motor or sensory deficit. Superficial and deep reflexes are normal with downwards planters. No cerebellar deficit with normal gait. Musculoskeletal: No tender spots with normal curvature of the spine with no swelling or restricted ROM of the small and large joints. Extremities: Homans sign absent. Intact pulses with no pitting edema, calf tenderness or skin color changes. Right foot is postop toes are warm with normal color Skin: No rash, eruptions or abnormal skin pigmentation LAB/RADIOLOGY: ASSESMENT : Status post surgery for the right foot for fracture of the metatarsal History of type 2 diabetes with neuropathy. Coronary artery disease with stent stable PLAN: Postop care as outlined by the commercial decorator Present on Admission - Present on Admission History of DVT/PE: No History of Uncontrolled Diabetes: Yes Urinary Catheter: No Decubitus Ulcer Present: No Past Patient History - Infectious Disease Hx of Infectious Diseases: None - Past Medical History & Family History Past Medical History?: Yes - Past Social History Smoking Status: Former Smoker - CARDIAC Hx Cardiac Disorders: Yes Hx Hypercholesterolemia: Yes Hx Hypertension: Yes Other/Comment: cardiac stents - NEUROLOGICAL Hx Neurological Disorder: Yes Hx Dizziness: Yes - HEENT Hx HEENT Problems: Yes Hx Cataracts: Yes (herman cataract surgery) - ENDOCRINE/METABOLIC Hx Endocrine Disorders: Yes Hx Diabetes Mellitus Type 2: Yes - INTEGUMENTARY Hx Dermatological Problems: Yes Other/Comment: left big toe - MUSCULOSKELETAL/RHEUMATOLOGICAL Hx Musculoskeletal Disorders: Yes Hx Arthritis: Yes Hx Degenerative Joint Disease: Yes Hx Falls: Yes - GASTROINTESTINAL Hx Gastrointestinal Disorders: Yes Hx Hemorrhoids: Yes - PSYCHIATRIC Hx Psychophysiologic Disorder: Yes Hx Anxiety: Yes - SURGICAL HISTORY Hx Surgeries: Yes Hx Cataract Extraction: Yes Hx Coronary Stent: Yes (2001,2009) Other/Comment: circumcision 2003 - ANESTHESIA Hx Anesthesia: Yes Hx Anesthesia Reactions: No Meds Allergies/Adverse Reactions: Allergies Allergy/AdvReac Type Severity Reaction Status Date / Time seasonal Allergy Uncoded 02/07/18 13:38 Results - Vital Signs Recent Vital Signs: Last Vital Signs Temp 99.0 F 02/13/18 12:22 Pulse 86 02/13/18 13:15 Resp 12 02/13/18 13:15 BP 142/79 02/13/18 13:15 Pulse Ox 99 02/13/18 13:15 - Labs Result Diagrams: 02/14/18 06:16 02/14/18 06:16 Labs: Laboratory Results - last 24 hr 02/13/18 12:27 POC Glucose (mg/dL) 147 H
[2018-02-13] MEDS ORDERED: HYDROmorphone 0.5 mg/0.5 ml ISec IVP PRN (15:34)
[2018-02-13] MEDS ORDERED: Lactated Ringer's 1,000 ML IV ONE (15:52)
--- NOTE | 2018-02-13 15:58 | RAD ---
Date of service: 02/13/2018 PROCEDURE: Right Foot Radiographs. HISTORY: s/p right foot surgery COMPARISON: 01/17/2018 FINDINGS: BONES: The exam is markedly limited obscuring fixation hardware present clinical correlation is essential regarding procedures performed. There is interval apparent prostatic and postop changes at the medial tarsal 1st metatarsal articulation aunts the prior exam. JOINTS: Postop changes medial tarsal metatarsal articulation otherwise limited evaluation Lisfranc joint pathology/surgical more intervention and/or treatment for also needs to be considered given the multiple mottled lucency projecting over the and 2nd metatarsal base and the indeterminate findings regarding the 1st 2nd intermetatarsal spacing here SOFT TISSUES: Limited evaluation- at minimal diffuse swelling of the midfoot suggested OTHER FINDINGS: None. IMPRESSION: Markedly limited exam given the extensive overlying immobilization and fixation device appearing bony detail. Surgical prostatic and/or other device suggested 1st medial tarsal metatarsal articulation. Clinical correlation is essential particular in regards to the Lisfranc joint
--- NOTE | 2018-02-13 16:02 | RAD ---
Date of service: 02/13/2018 PROCEDURE: Radiographs of the right tibia and fibula. HISTORY: s/p right leg surgery COMPARISON: None available. TECHNIQUE: Frontal and lateral views obtained. FINDINGS: BONES: There is extensive hardware immobilization devices from the mid tib-fib level down to the foot obscuring anatomy most notably at the hindfoot ankle and midfoot level. Clinical correlation is essential. RF no gross tibial or fibular fractures are appreciated. JOINT SPACES: Limited evaluation of the ankle. Arthrosis knee suggested. Well corticated sub cm ossification projects just lateral to the medial tibial spine-possible loose body -difficult to appreciate on the limited lateral view at this level OTHER FINDINGS: None. IMPRESSION: Limited evaluation for reasons stated above. No gross tibial or fibular fractures appreciated. Degenerative changes are noted. Extensive immobilization fixation devices in place as noted above. Clinical correlation recommended guarded procedures performed at foot level
[2018-02-13] MEDS: (Novolin R) Insulin Human Regular 100 units/ml vial SC SCH ×2 (17:13→21:25)
[2018-02-13] MEDS: Oxycodone/Acetaminophen 5/325 mg Tab PO PRN (17:20)
[2018-02-13] MEDS ORDERED: (Lantus) Insulin Glargine, Recombinant SC SCH (22:00)
[2018-02-14] MEDS ORDERED: Simethicone 80 mg Chewtab PO STA (00:14)
[2018-02-14] MEDS: Oxycodone/Acetaminophen 5/325 mg Tab PO PRN (03:14)
[2018-02-14 06:28] LABS: BASO % 0.3 % (0.0-2.0); EOS # 0.1 K/uL (0.0-0.7); EOS % 0.6 % (0.0-4.0); HEMOGLOBIN 13.6 g/dL (12.0-18.0); LYMPH # 2.3 K/uL (1.0-4.3); LYMPH % 17.9 % (20.0-40.0); MEAN CELL VOLUME 84.3 fL (80.0-94.0); MEAN CORPUSCULAR HEMOGLOBIN 27.8 pg (27.0-31.0); MEAN PLATELET VOLUME 7.6 fL (7.2-11.7); MONO # 0.8 K/uL (0.0-0.8); MONO % 6.6 % (0.0-10.0); NEUT # 9.5 K/uL (1.8-7.0); NEUT % 74.6 % (50.0-75.0); NRBC % 0.1 % (0.0-2.0); RBC 4.9 Mil/uL (4.40-5.90); RED CELL DISTRIBUTION WIDTH 14.2 % (11.5-14.5); WHITE BLOOD COUNT 12.7 K/uL (4.8-10.8)
[2018-02-14 06:53] LABS: ALB/GLOB RATIO 1.1 (1.0-2.1); ALBUMIN 3.6 g/dL (3.5-5.0); ALT/SGPT 20 U/L (21-72); AST/SGOT 19 U/L (17-59); BLOOD UREA NITROGEN 17 mg/dL (9-20); CALCIUM 8.7 mg/dl (8.6-10.4); GFR AFRICAN-AMERICAN > 60; GFR NON-AFRICAN AMERICAN > 60
[2018-02-14] MEDS: (Novolin R) Insulin Human Regular 100 units/ml vial SC SCH ×4 (07:57→21:44)
--- NOTE | 2018-02-14 10:25 | CP.PCM.PN ---
Subjective - Date & Time of Evaluation Date of Evaluation: 02/14/18 Time of Evaluation: 10:25 - Subjective Subjective: Podiatry Progress Note - Dr. Whelan 57 year old male patient PMHx CAD, CABG, IDDM, HTN, renal insufficiency, and lumbar radiculopathy seen and examined this AM POD#1 Right foot Charcot arthropathy reconstruction and endoscopic gastrocnemius recession. Significant other present at bedside. No acute events overnight. Patient reports pain in his RLE surgical site, well-controlled. States he has been using the incentive spirometer every hour. Tolerating diet. Dressing to right lower extremity clean/ dry/intact. Denies N/V/F/D/C/SOB/BLANTON/dizziness. No other complaints. Objective - Vital Signs/Intake and Output Vital Signs (last 24 hours): Temp Pulse Resp BP Pulse Ox 97.6 F 98 H 20 148/84 96 02/14/18 07:00 02/14/18 07:00 02/14/18 07:00 02/14/18 07:00 02/14/18 07:00 - Medications Medications: Current Medications Acetaminophen (Tylenol 325mg Tab) 650 mg PO Q6 PRN PRN Reason: Pain, Mild (1-3) Last Admin: 02/13/18 21:26 Dose: 650 mg Amlodipine Besylate (Norvasc) 5 mg PO DAILY [facility] Last Admin: 02/14/18 10:13 Dose: 5 mg Cefazolin Sodium/Dextrose (Ancef Iv 2 Gm Duplex) 2 gm in 50 mls @ 100 mls/hr IVPB Q8H [facility] PRN Reason: Protocol Insulin Glargine (Lantus) 80 unit SC HS [facility] Last Admin: 02/13/18 22:23 Dose: Not Given Insulin Human Regular (Novolin R) 0 unit SC ACHS [facility] PRN Reason: Protocol Last Admin: 02/14/18 07:57 Dose: 2 unit Metformin HCl (Glucophage) 1,000 mg PO BIDCC [facility] Last Admin: 02/14/18 07:57 Dose: 1,000 mg Metoprolol Tartrate (Lopressor) 100 mg PO DAILY [facility] Last Admin: 02/14/18 10:13 Dose: 100 mg Oxycodone/Acetaminophen (Percocet 5/325 Mg Tab) 1 tab PO Q4H PRN PRN Reason: Pain, moderate (4-7) Stop: 02/16/18 12:36 Last Admin: 02/14/18 03:14 Dose: 1 tab Tamsulosin HCl (Flomax) 0.4 mg PO DAILY [facility] Last Admin: 02/14/18 10:13 Dose: 0.4 mg - Labs Labs: 02/14/18 06:16 02/14/18 06:16 - Constitutional Appears: Well, Non-toxic, No Acute Distress - Extremities Exam Additional comments: Beverly spatial external fixator noted to right lower extremity with dressings clean/dry/intact. - Neurological Exam Neurological Exam: Alert, Awake, Oriented x3 - Psychiatric Exam Psychiatric exam: Normal Affect, Normal Mood Assessment and Plan - Assessment and Plan (Free Text) Assessment: 57M POD#1 Right foot Charcot arthropathy reconstruction and endoscopic gastrocnemius recession Plan: Patient seen and examined Discussed with attending, Dr. Whelan Tmax 100.7, WBC 12.7 - likely reactive Dressing change tomorrow Continue IS 10x every hour Activity: NWB RLE with the assistance of crutches -PT consulted for crutch training Continue abx - Ancef 2g IV Start anticoagulation tomorrow Pain control - Tylenol, Percocet SW consulted for d/c planning to [facility] Podiatry will continue to follow
[2018-02-14] MEDS: ceFAZolin IV 2 gm in Dextrose 2 GM/50 ML BAG IVPB SCH ×2 (11:14→17:45)
--- NOTE | 2018-02-14 13:54 | CP.PCM.PN ---
Subjective - Date & Time of Evaluation Date of Evaluation: 02/14/18 Time of Evaluation: 13:52 - Subjective Subjective: CHIEF COMPLAINTS TODAY : Postop pain on the right foot. ROS. HEENT : N. Resp : No cough, wheezing ,pleuritic CP ,or hemoptysis Cardio : No anginal CP, PND, orthopnea, palpitation GI : No abd.pain, n/v ,diarrhea or GI bleeding . INSURANCE EXECUTIVE : No headache, vertigo, focal deficit. Musculoskel : No joint swelling , Derm : No rash Psych : Normal affect. Ext : No swelling ,calf pain PE. Pt. is alert awake in no distress. V.S As noted in the chart Head ,ear nose,throat and eyes : Normal. Neck : Supple with normal carotids. Lungs: Clear air entry. Heart : S1 & S2 normal with S4. No murmur. Abd : Soft non tender with normal bowel sounds. Neuro : Moves all ext. with no localized deficit. Ext : No edema with intact pulses.Non tender calves right foot is postop bandage toes arewarm Derm : No rashes or decubitus ulcer. LABS/RADIOLOGY: ASSESSMENT/PLAN : Continue postop care. Monitor sugar and pain management Objective - Vital Signs/Intake and Output Vital Signs (last 24 hours): Temp Pulse Resp BP Pulse Ox 97.6 F 98 H 20 148/84 96 02/14/18 07:00 02/14/18 07:00 02/14/18 07:00 02/14/18 07:00 02/14/18 07:00 - Medications Medications: Current Medications Acetaminophen (Tylenol 325mg Tab) 650 mg PO Q6 PRN PRN Reason: Pain, Mild (1-3) Last Admin: 02/13/18 21:26 Dose: 650 mg Amlodipine Besylate (Norvasc) 5 mg PO DAILY [facility] Last Admin: 02/14/18 10:13 Dose: 5 mg Heparin Sodium (Porcine) (Heparin) 5,000 units SC Q12 [facility] Cefazolin Sodium/Dextrose (Ancef Iv 2 Gm Duplex) 2 gm in 50 mls @ 100 mls/hr IVPB Q8H [facility] PRN Reason: Protocol Last Admin: 02/14/18 11:14 Dose: 100 mls/hr Insulin Glargine (Lantus) 80 unit SC HS [facility] Last Admin: 02/13/18 22:23 Dose: Not Given Insulin Human Regular (Novolin R) 0 unit SC ACHS [facility] PRN Reason: Protocol Last Admin: 02/14/18 12:12 Dose: 6 unit Metformin HCl (Glucophage) 1,000 mg PO BIDCC [facility] Last Admin: 02/14/18 07:57 Dose: 1,000 mg Metoprolol Tartrate (Lopressor) 100 mg PO DAILY [facility] Last Admin: 02/14/18 10:13 Dose: 100 mg Oxycodone/Acetaminophen (Percocet 5/325 Mg Tab) 1 tab PO Q4H PRN PRN Reason: Pain, moderate (4-7) Stop: 02/16/18 12:36 Last Admin: 02/14/18 03:14 Dose: 1 tab Tamsulosin HCl (Flomax) 0.4 mg PO DAILY [facility] Last Admin: 02/14/18 10:13 Dose: 0.4 mg - Labs Labs: 02/14/18 06:16 02/14/18 06:16
[2018-02-14] MEDS: Pantoprazole 40 mg EC Tab PO SCH (14:17)
[2018-02-14] MEDS: (Lantus) Insulin Glargine, Recombinant SC SCH (21:56)
[2018-02-15] MEDS: ceFAZolin IV 2 gm in Dextrose 2 GM/50 ML BAG IVPB SCH ×2 (02:20→09:44)
[2018-02-15] MEDS: (Novolin R) Insulin Human Regular 100 units/ml vial SC SCH ×4 (08:46→22:14)
--- NOTE | 2018-02-15 09:10 | CP.PCM.PN ---
Subjective - Date & Time of Evaluation Date of Evaluation: 02/15/18 Time of Evaluation: 08:00 - Subjective Subjective: Podiatry Progress Note - Dr. Whelan 57M seen and examined this AM POD#2 right foot Charcot arthropathy reconstruction and endoscopic gastrocnemius recession. Patient hemodynamically stable and NAD. No acute events overnight. Pain to RLE well-controlled. Patient continues to use IS 10x/hour. No new pedal complaints. Denies N/V/F/D/C/SOB/[place]/ CP. Objective - Vital Signs/Intake and Output Vital Signs (last 24 hours): Temp Pulse Resp BP Pulse Ox 98 F 83 18 138/80 96 02/15/18 08:34 02/15/18 08:34 02/15/18 08:34 02/15/18 08:34 02/15/18 08:34 Intake and Output: 02/15/18 02/15/18 06:59 18:59 Intake Total 920 Balance 920 - Medications Medications: Current Medications Acetaminophen (Tylenol 325mg Tab) 650 mg PO Q6 PRN PRN Reason: Pain, Mild (1-3) Last Admin: 02/15/18 02:36 Dose: 650 mg Amlodipine Besylate (Norvasc) 5 mg PO DAILY [facility] Last Admin: 02/14/18 10:13 Dose: 5 mg Heparin Sodium (Porcine) (Heparin) 5,000 units SC Q12 [facility] Last Admin: 02/14/18 21:57 Dose: 5,000 units Cefazolin Sodium/Dextrose (Ancef Iv 2 Gm Duplex) 2 gm in 50 mls @ 100 mls/hr IVPB Q8H [facility] PRN Reason: Protocol Last Admin: 02/15/18 02:20 Dose: 100 mls/hr Insulin Glargine (Lantus) 40 unit SC HS [facility] Last Admin: 02/14/18 21:56 Dose: 40 unit Insulin Human Regular (Novolin R) 0 unit SC ACHS [facility] PRN Reason: Protocol Last Admin: 02/15/18 08:46 Dose: 2 unit Metformin HCl (Glucophage) 1,000 mg PO BIDCC [facility] Last Admin: 02/15/18 08:46 Dose: 1,000 mg Metoprolol Tartrate (Lopressor) 100 mg PO DAILY [facility] Last Admin: 02/14/18 10:13 Dose: 100 mg Oxycodone/Acetaminophen (Percocet 5/325 Mg Tab) 1 tab PO Q4H PRN PRN Reason: Pain, moderate (4-7) Stop: 02/16/18 12:36 Last Admin: 02/14/18 03:14 Dose: 1 tab Pantoprazole Sodium (Protonix Ec Tab) 40 mg PO DAILY [facility] Last Admin: 02/14/18 14:17 Dose: 40 mg Tamsulosin HCl (Flomax) 0.4 mg PO DAILY [facility] Last Admin: 02/14/18 10:13 Dose: 0.4 mg - Labs Labs: 02/14/18 06:16 02/14/18 06:16 - Constitutional Appears: Well, Non-toxic, No Acute Distress - Extremities Exam Additional comments: RLE focused physical exam Beverly spatial external fixator noted to right lower extremity with dressings clean/dry/intact. Pin sites intact with minimal periwound erythema; no clinical signs of infection noted. Linear incision noted to dorsomedial midfoot, and medial and lateral leg with sutures intact and no wound dehiscence noted. CFT <3 seconds to digits x5 Digital ROM present No pain on palpation noted to pin sites or incisions Nonpitting edema noted to LE - Neurological Exam Neurological Exam: Alert, Awake, Oriented x3 - Psychiatric Exam Psychiatric exam: Normal Affect, Normal Mood Assessment and Plan - Assessment and Plan (Free Text) Assessment: 57M POD#2 Right foot Charcot arthropathy reconstruction and endoscopic gastrocnemius recession Plan: Patient seen and examined Discussed with attending, Dr. Whelan Tmax 99.7 RLE dressings changed without incident - bacitracin, DSD Continue IS 10x every hour Activity: NWB RLE with the assistance of crutches -PT consulted: pt unable to use crutches with ex fix in place Course of abx completed Anticoagulation: Heparin 5000U SC q12 Pain control - Tylenol, Percocet SW consulted for d/c planning to [facility] Podiatry will continue to follow
[2018-02-15] MEDS: Pantoprazole 40 mg EC Tab PO SCH (09:44)
--- NOTE | 2018-02-15 14:22 | CP.PCM.PN ---
Subjective - Date & Time of Evaluation Date of Evaluation: 02/15/18 Time of Evaluation: 14:22 - Subjective Subjective: CHIEF COMPLAINTS TODAY : Postop pain on the right foot. ROS. HEENT : N. Resp : No cough, wheezing ,pleuritic CP ,or hemoptysis Cardio : No anginal CP, PND, orthopnea, palpitation GI : No abd.pain, n/v ,diarrhea or GI bleeding . BIOMEDICAL SCIENTIST : No headache, vertigo, focal deficit. Musculoskel : No joint swelling , Derm : No rash Psych : Normal affect. Ext : No swelling ,calf pain PE. Pt. is alert awake in no distress. V.S As noted in the chart Head ,ear nose,throat and eyes : Normal. Neck : Supple with normal carotids. Lungs: Clear air entry. Heart : S1 & S2 normal with S4. No murmur. Abd : Soft non tender with normal bowel sounds. Neuro : Moves all ext. with no localized deficit. Ext : No edema with intact pulses.Non tender calves right foot is postop bandage toes arewarm Derm : No rashes or decubitus ulcer. LABS/RADIOLOGY: ASSESSMENT/PLAN : Continue postop care. Monitor sugar and pain management Objective - Vital Signs/Intake and Output Vital Signs (last 24 hours): Temp Pulse Resp BP Pulse Ox 98 F 83 18 138/80 96 02/15/18 08:34 02/15/18 08:34 02/15/18 08:34 02/15/18 08:34 02/15/18 08:34 Intake and Output: 02/15/18 02/15/18 11:59 23:59 Intake Total 120 800 Balance 120 800 - Medications Medications: Current Medications Acetaminophen (Tylenol 325mg Tab) 650 mg PO Q6 PRN PRN Reason: Pain, Mild (1-3) Last Admin: 02/15/18 02:36 Dose: 650 mg Amlodipine Besylate (Norvasc) 5 mg PO DAILY [facility] Last Admin: 02/15/18 09:44 Dose: 5 mg Heparin Sodium (Porcine) (Heparin) 5,000 units SC Q12 [facility] Last Admin: 02/15/18 09:44 Dose: 5,000 units Insulin Glargine (Lantus) 40 unit SC HS [facility] Last Admin: 02/14/18 21:56 Dose: 40 unit Insulin Human Regular (Novolin R) 0 unit SC ACHS [facility] PRN Reason: Protocol Last Admin: 02/15/18 11:40 Dose: 8 unit Metformin HCl (Glucophage) 1,000 mg PO BIDCC [facility] Last Admin: 02/15/18 08:46 Dose: 1,000 mg Metoprolol Tartrate (Lopressor) 100 mg PO DAILY [facility] Last Admin: 02/15/18 09:44 Dose: 100 mg Oxycodone/Acetaminophen (Percocet 5/325 Mg Tab) 1 tab PO Q4H PRN PRN Reason: Pain, moderate (4-7) Stop: 02/16/18 12:36 Last Admin: 02/14/18 03:14 Dose: 1 tab Pantoprazole Sodium (Protonix Ec Tab) 40 mg PO DAILY [facility] Last Admin: 02/15/18 09:44 Dose: 40 mg Tamsulosin HCl (Flomax) 0.4 mg PO DAILY [facility] Last Admin: 02/15/18 09:44 Dose: 0.4 mg - Labs Labs: 02/14/18 06:16 02/14/18 06:16
[2018-02-15] MEDS: (Lantus) Insulin Glargine, Recombinant SC SCH (21:53)
--- NOTE | 2018-02-16 07:35 | CP.PCM.PN ---
Subjective - Date & Time of Evaluation Date of Evaluation: 02/16/18 Time of Evaluation: 07:35 - Subjective Subjective: Podiatry Progress Note - Dr. Whelan 57M seen and examined this AM POD#3 right foot Charcot arthropathy reconstruction and endoscopic gastrocnemius recession. Patient sleeping at time of visit, hemodynamically stable and NAD. No acute events overnight. Denies any pain in RLE. States he has been working with physical therapy and is able to ambulate short distances, NWB RLE with the assistance of crutches. No new pedal complaints. Denies N/V/F/D/C/SOB/[place]/CP. Objective - Vital Signs/Intake and Output Vital Signs (last 24 hours): Temp Pulse Resp BP Pulse Ox 98.1 F 101 H 20 148/88 95 02/15/18 23:05 02/15/18 23:05 02/15/18 23:05 02/15/18 23:05 02/15/18 23:05 Intake and Output: 02/16/18 02/16/18 06:59 18:59 Output Total 1500 Balance -1500 - Medications Medications: Current Medications Acetaminophen (Tylenol 325mg Tab) 650 mg PO Q6 PRN PRN Reason: Pain, Mild (1-3) Last Admin: 02/15/18 02:36 Dose: 650 mg Amlodipine Besylate (Norvasc) 5 mg PO DAILY [facility] Last Admin: 02/15/18 09:44 Dose: 5 mg Heparin Sodium (Porcine) (Heparin) 5,000 units SC Q12 [facility] Last Admin: 02/15/18 21:53 Dose: 5,000 units Insulin Glargine (Lantus) 40 unit SC HS [facility] Last Admin: 02/15/18 21:53 Dose: 40 unit Insulin Human Regular (Novolin R) 0 unit SC ACHS [facility] PRN Reason: Protocol Last Admin: 02/15/18 22:14 Dose: Not Given Metformin HCl (Glucophage) 1,000 mg PO BIDCC [facility] Last Admin: 02/15/18 17:51 Dose: 1,000 mg Metoprolol Tartrate (Lopressor) 100 mg PO DAILY [facility] Last Admin: 02/15/18 09:44 Dose: 100 mg Oxycodone/Acetaminophen (Percocet 5/325 Mg Tab) 1 tab PO Q4H PRN PRN Reason: Pain, moderate (4-7) Stop: 02/16/18 12:36 Last Admin: 02/14/18 03:14 Dose: 1 tab Pantoprazole Sodium (Protonix Ec Tab) 40 mg PO DAILY [facility] Last Admin: 02/15/18 09:44 Dose: 40 mg Tamsulosin HCl (Flomax) 0.4 mg PO DAILY [facility] Last Admin: 02/15/18 09:44 Dose: 0.4 mg - Labs Labs: 02/14/18 06:16 02/14/18 06:16 - Constitutional Appears: Well, Non-toxic, No Acute Distress - Extremities Exam Additional comments: RLE focused physical exam Beverly spatial external fixator noted to right lower extremity with dressings clean/dry/intact. Neurovascular status intact to digits Digital ROM present No pain upon calf squeeze - Neurological Exam Neurological Exam: Alert, Awake, Oriented x3 - Psychiatric Exam Psychiatric exam: Normal Affect, Normal Mood Assessment and Plan - Assessment and Plan (Free Text) Assessment: 57M POD#3 Right foot Charcot arthropathy reconstruction and endoscopic gastrocnemius recession Plan: Patient seen and examined Discussed with attending, Dr. Whelan VSMiguelangel Continue IS 10x every hour Activity: NWB RLE with the assistance of crutches Continue PT Course of abx completed Anticoagulation: Heparin 5000U SC q12 Pain control - Tylenol, Percocet SW consulted: pending d/c to [facility] [place] Podiatry will continue to follow
[2018-02-16] MEDS: (Novolin R) Insulin Human Regular 100 units/ml vial SC SCH ×4 (08:30→22:06)
[2018-02-16] MEDS: Pantoprazole 40 mg EC Tab PO SCH (10:28)
--- NOTE | 2018-02-16 15:10 | CP.PCM.PN ---
Subjective - Date & Time of Evaluation Date of Evaluation: 02/16/18 Time of Evaluation: 15:08 - Subjective Subjective: CHIEF COMPLAINTS TODAY : Postop pain on the right foot. ROS. HEENT : N. Resp : No cough, wheezing ,pleuritic CP ,or hemoptysis Cardio : No anginal CP, PND, orthopnea, palpitation GI : No abd.pain, n/v ,diarrhea or GI bleeding . SWITCHBOARD MANAGER : No headache, vertigo, focal deficit. Musculoskel : No joint swelling , Derm : No rash Psych : Normal affect. Ext : No swelling ,calf pain PE. Pt. is alert awake in no distress. V.S As noted in the chart Head ,ear nose,throat and eyes : Normal. Neck : Supple with normal carotids. Lungs: Clear air entry. Heart : S1 & S2 normal with S4. No murmur. Abd : Soft non tender with normal bowel sounds. Neuro : Moves all ext. with no localized deficit. Ext : No edema with intact pulses.Non tender calves right foot is postop bandage toes arewarm Derm : No rashes or decubitus ulcer. LABS/RADIOLOGY: ASSESSMENT/PLAN : patient has agreed to go to rehab center, at [facility]. Continue postop management and monitor sugar. Objective - Vital Signs/Intake and Output Vital Signs (last 24 hours): Temp Pulse Resp BP Pulse Ox 99.0 F 86 18 165/90 H 96 02/16/18 07:00 02/16/18 07:00 02/16/18 07:00 02/16/18 07:00 02/16/18 07:00 - Medications Medications: Current Medications Acetaminophen (Tylenol 325mg Tab) 650 mg PO Q6 PRN PRN Reason: Pain, Mild (1-3) Last Admin: 02/15/18 02:36 Dose: 650 mg Amlodipine Besylate (Norvasc) 5 mg PO DAILY [facility] Last Admin: 02/16/18 10:30 Dose: 5 mg Heparin Sodium (Porcine) (Heparin) 5,000 units SC Q12 [facility] Last Admin: 02/16/18 10:29 Dose: 5,000 units Insulin Glargine (Lantus) 40 unit SC HS [facility] Last Admin: 02/15/18 21:53 Dose: 40 unit Insulin Human Regular (Novolin R) 0 unit SC ACHS [facility] PRN Reason: Protocol Last Admin: 02/16/18 12:06 Dose: 4 unit Metformin HCl (Glucophage) 1,000 mg PO BIDCC [facility] Last Admin: 02/16/18 09:00 Dose: 1,000 mg Metoprolol Tartrate (Lopressor) 100 mg PO DAILY [facility] Last Admin: 02/16/18 10:32 Dose: 100 mg Pantoprazole Sodium (Protonix Ec Tab) 40 mg PO DAILY [facility] Last Admin: 02/16/18 10:28 Dose: 40 mg Tamsulosin HCl (Flomax) 0.4 mg PO DAILY [facility] Last Admin: 02/16/18 10:29 Dose: 0.4 mg - Labs Labs: 02/14/18 06:16 02/14/18 06:16
[2018-02-16] MEDS: (Lantus) Insulin Glargine, Recombinant SC SCH (22:05)
[2018-02-17] MEDS: (Novolin R) Insulin Human Regular 100 units/ml vial SC SCH ×4 (07:58→21:26)
[2018-02-17] MEDS: Pantoprazole 40 mg EC Tab PO SCH (09:26)
--- NOTE | 2018-02-17 09:40 | OP ---
PROCEDURE DATE: 02/13/2018 PRIMARY SURGEON: Gui Jain DPM [employer]IMARY [employer] BUS DRIVER: Mitch Sommer DPM, PGY-3. SECONDARY ASSISTANTS: Laura Grissom DPM, PGY-3.; Jarad Colon DPM, PGY-3 ANESTHESIOLOGIST: Dr. Prasanna MD ANESTHESIA TYPE: General LMA with postoperative regional popliteal. PREOPERATIVE DIAGNOSES: 1. Right foot gastrocnemius equinus. 2. Right foot Charcot arthropathy 3) Right Lisfranc joint dislocation. POSTOPERATIVE DIAGNOSES: 1. Right foot gastrocnemius equinus. 2. Right foot Charcot arthropathy 3) Right Lisfranc joint dislocation. PROCEDURES: 1. Right leg endoscopic gastrocnemius recession. 2. Right foot Charcot arthropathy reconstruction with resection of non-viable bone and implantation of allograft bone wedges. 3. Autologous platelet-rich plasma harvest with infusion into allograft bone. Application of demineralized bone matrix 4. Right lower extremity application of multi-planar type external fixator. 5. Fluoroscopy. SPECIMEN: Right foot tarsal bone. INDICATIONS: The patient is a 57-year-old male with the above-stated diagnoses. The patient has failed conservative management and is now seeking surgical intervention. The patient signed the surgical consent after careful explanation of risks, benefits, complications, and potential alternatives with both surgical procedures. No guarantees were either given or implied. All the patient's questions were answered to his satisfaction. PREPARATION: The patient's NPO status was confirmed prior to bringing the patient to the operating room. The patient was brought into the operating room and placed on the operating room table in a supine position. With general anesthesia confirmed to have been achieved, the patient received a well-padded pneumatic tourniquet at the mid thigh level of the right leg, which was set to 350 mmHg, to be inflated once the procedure began. The patient received an ipsilateral hip bump which was set inferior to the operating room mattress. With the patient adequately positioned and anesthetized, the patient's foot, ankle, and lower leg to the level of the knee were then prepped and draped in the usual sterile manner. Lower extremity was exsanguinated, tourniquet was inflated, and the procedure began. PROCEDURE 1: Right leg endoscopic gastrocnemius recession. Attention was then directed to the right posterior calf where the myotendinous junction of the gastrocnemius muscle belly was palpated and marked along the medial margin. A 2 cm distal to this point, a 1-cm linear longitudinal incision was made to the gastrocsoleus muscular aponeurosis using #15 blade. This incision was extended down through the superficial crural fascia using sharp dissection. Using a point finder, the myofascial junction was tunneled from medial to lateral along the gastrocnemius fascial band. Upon completing this tunnel laterally, which was palpated, a lateral portal was created using #15 blade, approximately 1 cm in length, and was extended down to the crural fascia. At this time, from the Arthrex set, an obturator and cannula were directed to medial and to lateral along this undermined tunnel margin exiting through the lateral portal. Trocar was removed, and a 30-degree angulated arthroscope was placed endoscopically. Gastrocnemius fascial bands were then appreciated, and an endoscopic blade was introduced through the lateral portal. Using rearfoot as focal points to apply tension to the fascial band as forefoot was dislocated from injury, rearfoot was dorsiflexed to maximize tension on fascial band. At this time, using EndoBlade, fascial band was released from medially to laterally. With all fibers resected, improvement to restricted dorsiflexion range of motion at the level of the ankle joint was immediately noted and found to be greatly improved. Surgical site was then flushed with copious amounts of sterile saline. No significant muscle belly bleeding or laceration was encountered at this point. Surgical portals were then reapproximated using 4-0 nylon in a simple suture type fashion. With improved rearfoot range of motion in dorsiflexion plane, we were ready to move along to subsequent procedures. PROCEDURE 2: Right midfoot Charcot reconstruction with resection of nonviable bone and implantation of allograft bone wedges. Attention was then directed to the dorsomedial aspect of the midfoot where fluoroscopy was introduced and dislocated medial cuneiform was identified. At this time, approximately 4 cm longitudinal incision was made medial to the tibialis anterior tendon, extended from the metatarsal cuneiform joint proximally using a #15 blade. This incision was then extended through subcutaneous tissue layers with care being taken to identify, avoid, and retract all vital neurovascular structures. All bleeders were cauterized and ligated as needed. Tendon structures were reflected superiorly and inferiorly, thus allowing adequate visualization for periosteal structures. At this time, noted subluxed medial cuneiform was identified subperiosteally. A periosteal incision was made utilizing #15 blade overlying the medial cuneiform. It should be noted that periosteal structures at this level were hyper-inflamed. Medial cuneiform bone was then evaluated. It was found to be severely degenerated, soft, and with hematogenous congestion. It was evaluated that this bone was non-viable for any type of fixation and would serve as potential nidus for infection or impediment of future joint arthrodesis. Intraoperative decision was made to excise medial cuneiform bone at this time. It was passed from the operative field to be sent for pathological evaluation. The surgical site was then flushed with copious amounts of sterile saline. Forefoot to midfoot relationship including status of tarsometatarsal joint was evaluated at this time, it was noted that it was moderately subluxed with adducted position, though more freely movable to medial realignment in a more corrected anatomical position. At this time, upon evaluation, it was noted that medial margin of intermediate cuneiform joint was dorsally subluxed and also in a nonviable position in bone quality. Intermediate cuneiform was then excised and passed from the operative field. First metatarsal base epiphyseal bone was found to be in improved quality, but still weak and suspected to still be a potential encumberment to future healing. Epiphyseal bone was then resected to metaphyseal bone junction, which was found to be of high quality and cortical margins were more supportive and were suspected to be adequate in aligning and maintain bone wedge position. At this time, medial navicular bone quality was found to be adequate. Surgical site was then flushed with copious amount of sterile saline. First metatarsal base and navicular articulation were then drilled subchondrally to allow active perfusion. At this time, fluoroscopy was reintroduced and tarsometatarsal joint was manipulated to allow lateral column, which was found to be stable, to reduce deformity, and place foot in normalized anatomical position with tarsal cuneiform section to be filled in with bone wedge allograft. Surgical site was then flushed with copious amounts of sterile saline. All excess osteophytes were resected using rongeur from the plantar periosteum of the resected bone sites. Surgical site was then once again flushed with copious amount of sterile saline. Application of bone grqaft were prepared. PROCEDURE 3: Autologous platelet-rich plasma harvest with infusion into allograft bone. On the back table, 2 triangular pieces of Arthrex, 30 x 15 x 18 mm bone wedges were prepped and soaked in platelet-rich plasma, which had been prepared preoperatively from 60 mL of patient's own blood, which was harvested from [employer]. The 60 mL of the target blood was placed in the centrifuge system with added anticoagulant and centrifuged down to yield approximately 16 mL of platelet-rich plasma. With the allograft wedges absorbing the platelet-rich plasma, they were ready to be placed in bone void. At this time the bone wedges, were placed in the osseous defect. Combination of margins formed a rhomboid-type structure with long axis oriented from dorsal to plantar. was placed in bony void and found to be of adequate size and depth to fill soft tissue defect void with foot being maintained in corrected anatomical position with manual manipulation. Next 3 cc' s of Synthes DBM allograft matrix was placed in bone defect and bone wedges were placed in ideal position into soft tissue defect. At this time, a 0.062-inch K-wire was then driven from the fourth ray posteriorly through the tibiocalcaneal joint to temporarily fixate reduced position. Reduction was found to be stable at this time. Initial attempts to drill across bone wedge with 0.45 inch K-wire to serve as a temporary fixation, failed. It was noted to fail as bone wedges were too dense to allow fixation with K-wire, without compromising structure of bone graft. Intraoperative decision was made to close periosteal structures overlying periosteal grafts and to use external fixation to fixate forefoot to midfoot position with primary ligament attach to some retrograde versus using the external fixator. With bone left with bone graft, wedge block placed under fluoroscopy, periosteal structures were then reapproximated using 2-0 Vicryl with portions of tibialis anterior and tibialis posterior tendons incorporated to secure position of graft to to weakened periosteum. Subcutaneous tissue was reapproximated with 4-0 vicryl, skin was reapproximated using 4-0 Prolene. PROCEDURE 2 (cont'd): At this time, 120 minutes of tourniquet time was reached. Tourniquet was then deflated and was not utilized for remainder of procedures. Upon visual examination of the foot, it was noted that rocker-bottom deformity and collapsed medial arch had been reapproximated with return of medial arch. Foot had no varus or predominant valgus deformity to it, and plantar surface of the foot was in a plantar grade position with no significant rearfoot or forefoot equinus or pressure point when loaded. At this time, intraoperative decision was made to apply external fixation which led to our subsequent procedure. PROCEDURE 4: Application of right lower extremity external fixator. Pre-fabricated external fixator was then opened sterilely. Pre-fabrication process had been completed preoperatively for general anatomy of patient and had been pre-sterilized. External fixator was then brought up and placed around the patient's lower extremity with care being taken to ensure that positioning allowed for adequate soft tissue swelling with more than 3 cm of space between skin and entire components of external fixator around the entire circumference from the foot lower leg complex. When this achieved and under fluoroscopic guidance, positioning was found to be adequate. At this time, under fluoroscopic guidance, a 2.5 mm Schanz pin was drilled from sr. director product management-inferior margin of the calcaneus to distal superior along the mid-line long axis of the calcaneus. This allowed manual manipulation to place rearfoot in dorsiflexed position and increase calcaneal inclination angle and serve as fixation point for rearfoot on external fixator. At this time, position found to be adequate to rearfoot stabilization component of ring, tibial block was aligned using tibial tuberosity as alignment point. At this time, a pair of 5.0 mm Schanz pins were oriented in the medial facet of the tibia, one superior to the tibial stabilization ring and one inferior to the tibial stabilization ring. The Schanz pin oriented superior to the stabilization ring was oriented a half centimeter medial to the medial tibial crest and was directed from anterior to posterior in a bicortical fashion. Positioning and length were assessed under fluoroscopic guidance. Positioning and stability were found to be adequate. This pin was then secured to external fixator. At this time, calcaneal pin was then coupled to external fixator with at least 2 points of fixation between lower extremity and fixator. The second tibial pin which was set inferior to the calcaneal pin was then set up from a bar to pin-type fashion, approximately 3 cm inferior to the initial tibial pin and approximately 15 degrees of internal rotation on the medial facet of tibia. This was drilled under fluoroscopic guidance in a bicortical type fashion. Strength and position were found to be adequate and this pin was coupled to the external fixator. With tibial block fixation and calcaneal/rearfoot fixation found to be adequately stable, the forefoot/midfoot alignment was assessed, midfoot controlled component of external fixator was a spatial dynamic component. Using a total of 6 telescopic struts, distal stabilization ring was at the level of the metatarsal shaft. It was noted that due to intraoperative presentation of bone, half-pin fixation would potentially overload questionable bone quality from pins, so all wire fixation was utilized. Upon alignment, percutaneous stab incisions were made, the first of which was set to the proximal diaphysis of the first metatarsal base, the second of which was oriented from the fifth metatarsal styloid process, oriented medially with all pin going from lateral plantar to superior medial in line with the second metatarsal base and secured to external fixation ring. First metatarsal olive wire was oriented from distal dorsal to plantar proximal. The courses of these veins were utilized to correct and maintain adducted and plantarflexed position of forefoot to apply retrograde pressures to bone blocks and to promote ligamentotaxis and compression for the lateral columns and medial column respectively. Proximal olive wire ends were then secured to external fixator and then leading edges of K-wires and orientation of desired compressions were then tensioned to 55 yeboah meters to avoid over-tensioning and compromise of bony structures that were implanted. At this time, fixation was found to be adequate. Under fluoroscopic guidance, positioning of external fixator and fixation points into osseous structures was found to be optimized. Midfoot stabilization was minimally stretched and found to be stable. At this time, olive wires were then trimmed and covered. Steinmann pins were covered with Steinmann pin covers. Foot and fixator were cleansed with sterile saline. Incision sites were then dressed with bacitracin and [place] dressing. Steinmann pin sites were then dressed with bacitracin. [place] wire sites were dressed with bacitracin and Xeroform. The patient received a total of 40 mL of 1:1 Exparel to 0.5% Marcaine mix in a local block type fashion to all surgical sites, and pin and wire insertion sites. The foot was then dressed with 4 x 4 gauze, ABDs, Katrina, Kerlix, and Hayden. External fixator was wrapped in Hayden wrap to avoid future contaminations. POSTOPERATIVE CONDITION: The patient tolerated the anesthesia and procedures well and was escorted to the recovery room with vital signs stable and neurovascular status intact. The patient had no complaints or complications. The patient will remain in-house for monitoring postoperatively. Mitch Sommer DPM Gui Whelan DPM MTDHien
--- NOTE | 2018-02-17 10:14 | CP.PCM.PN ---
Subjective - Date & Time of Evaluation Date of Evaluation: 02/17/18 Time of Evaluation: 10:14 - Subjective Subjective: Podiatry Progress Note - Dr. Whelan 57M seen and examined this AM POD#4 right foot Charcot arthropathy reconstruction and endoscopic gastrocnemius recession. Patient OOB in chair at time of visit, leg elevated. Patient hemodynamically stable and NAD. Patient states his right foot is restless, concerned his foot is moving within the frame. Denies any pain to RLE. States he is able to ambulate NWB RLE with crutches short distances. Patient agreeable to be dc to [facility]. Denies N/V/F/D/C/ SOB/[place]/CP. Offers no other complaints. Objective - Vital Signs/Intake and Output Vital Signs (last 24 hours): Temp Pulse Resp BP Pulse Ox 98 F 75 18 187/100 H 96 02/17/18 07:30 02/17/18 07:30 02/17/18 07:30 02/17/18 07:30 02/17/18 07:30 Intake and Output: 02/17/18 02/17/18 06:59 18:59 Output Total 900 Balance -900 - Medications Medications: Current Medications Acetaminophen (Tylenol 325mg Tab) 650 mg PO Q6 PRN PRN Reason: Pain, Mild (1-3) Last Admin: 02/17/18 09:26 Dose: 650 mg Amlodipine Besylate (Norvasc) 5 mg PO DAILY [facility] Last Admin: 02/17/18 09:26 Dose: 5 mg Heparin Sodium (Porcine) (Heparin) 5,000 units SC Q12 [facility] Last Admin: 02/17/18 09:25 Dose: 5,000 units Insulin Glargine (Lantus) 40 unit SC HS [facility] Last Admin: 02/16/18 22:05 Dose: 40 unit Insulin Human Regular (Novolin R) 0 unit SC ACHS [facility] PRN Reason: Protocol Last Admin: 02/17/18 07:58 Dose: 4 unit Metformin HCl (Glucophage) 1,000 mg PO BIDCC [facility] Last Admin: 02/17/18 07:58 Dose: 1,000 mg Metoprolol Tartrate (Lopressor) 100 mg PO DAILY [facility] Last Admin: 02/17/18 09:26 Dose: 100 mg Pantoprazole Sodium (Protonix Ec Tab) 40 mg PO DAILY [facility] Last Admin: 02/17/18 09:26 Dose: 40 mg Tamsulosin HCl (Flomax) 0.4 mg PO DAILY [facility] Last Admin: 02/17/18 09:25 Dose: 0.4 mg - Labs Labs: 02/14/18 06:16 02/14/18 06:16 - Constitutional Appears: Well, Non-toxic, No Acute Distress - Extremities Exam Additional comments: RLE focused physical exam [place] spatial external fixator noted to right lower extremity with dressings clean/dry/intact. Pin sites intact with minimal periwound erythema; no clinical signs of infection noted. Linear incision noted to dorsomedial midfoot mildly macerated, and medial and lateral leg with sutures intact and no wound dehiscence noted. CFT <3 seconds to digits x5 Digital ROM present No pain on palpation noted to pin sites or incisions Nonpitting edema noted to LE - Neurological Exam Neurological Exam: Alert, Awake, Oriented x3 - Psychiatric Exam Psychiatric exam: Normal Affect, Normal Mood Assessment and Plan - Assessment and Plan (Free Text) Assessment: 57M POD#4 Right foot Charcot arthropathy reconstruction and endoscopic gastrocnemius recession Plan: Patient seen and examined Discussed with attending, Dr. Whelan VSMiguelangel Dressing changed without incident - betadine, DSD. No clinical signs of infection noted. Continue IS 10x every hour Activity: NWB RLE with the assistance of crutches Continue PT Anticoagulation: Heparin 5000U SC q12 Pain control - Tylenol, Percocet SW consulted: Patient agreeable to be dc to [facility] Podiatry will continue to follow
--- NOTE | 2018-02-17 13:25 | CP.PCM.PN ---
Subjective - Date & Time of Evaluation Date of Evaluation: 02/17/18 Time of Evaluation: 13:25 - Subjective Subjective: CHIEF COMPLAINTS TODAY : Postop pain on the right foot. ROS. HEENT : N. Resp : No cough, wheezing ,pleuritic CP ,or hemoptysis Cardio : No anginal CP, PND, orthopnea, palpitation GI : No abd.pain, n/v ,diarrhea or GI bleeding . PAGEANT DIRECTOR : No headache, vertigo, focal deficit. Musculoskel : No joint swelling , Derm : No rash Psych : Normal affect. Ext : No swelling ,calf pain PE. Pt. is alert awake in no distress. V.S As noted in the chart Head ,ear nose,throat and eyes : Normal. Neck : Supple with normal carotids. Lungs: Clear air entry. Heart : S1 & S2 normal with S4. No murmur. Abd : Soft non tender with normal bowel sounds. Neuro : Moves all ext. with no localized deficit. Ext : No edema with intact pulses.Non tender calves right foot is postop bandage toes arewarm Derm : No rashes or decubitus ulcer. LABS/RADIOLOGY: ASSESSMENT/PLAN : patient has agreed to go to rehab center, at [facility]. Continue postop management and monitor sugar. Objective - Vital Signs/Intake and Output Vital Signs (last 24 hours): Temp Pulse Resp BP Pulse Ox 98 F 75 18 187/100 H 96 02/17/18 07:30 02/17/18 07:30 02/17/18 07:30 02/17/18 07:30 02/17/18 07:30 Intake and Output: 02/17/18 02/17/18 11:59 23:59 Output Total 900 Balance -900 - Medications Medications: Current Medications Acetaminophen (Tylenol 325mg Tab) 650 mg PO Q6 PRN PRN Reason: Pain, Mild (1-3) Last Admin: 02/17/18 09:26 Dose: 650 mg Amlodipine Besylate (Norvasc) 5 mg PO DAILY [facility] Last Admin: 02/17/18 09:26 Dose: 5 mg Heparin Sodium (Porcine) (Heparin) 5,000 units SC Q12 [facility] Last Admin: 02/17/18 09:25 Dose: 5,000 units Insulin Glargine (Lantus) 40 unit SC HS [facility] Last Admin: 02/16/18 22:05 Dose: 40 unit Insulin Human Regular (Novolin R) 0 unit SC ACHS [facility] PRN Reason: Protocol Last Admin: 02/17/18 11:41 Dose: 6 unit [facility] Last Admin: 02/17/18 07:58 Dose: 1,000 mg Metoprolol Tartrate (Lopressor) 100 mg PO DAILY [facility] Last Admin: 02/17/18 09:26 Dose: 100 mg Pantoprazole Sodium (Protonix Ec Tab) 40 mg PO DAILY [facility] Last Admin: 02/17/18 09:26 Dose: 40 mg Tamsulosin HCl (Flomax) 0.4 mg PO DAILY [facility] Last Admin: 02/17/18 09:25 Dose: 0.4 mg - Labs Labs: 02/14/18 06:16 02/14/18 06:16
[2018-02-17 16:41] VITALS: RESP 20
[2018-02-17] MEDS: (Lantus) Insulin Glargine, Recombinant SC SCH (21:54)
[2018-02-18] MEDS: (Novolin R) Insulin Human Regular 100 units/ml vial SC SCH ×3 (08:04→17:22)
[2018-02-18] MEDS: Pantoprazole 40 mg EC Tab PO SCH (10:01)
--- NOTE | 2018-02-18 10:16 | CP.PCM.PN ---
Subjective - Date & Time of Evaluation Date of Evaluation: 02/18/18 Time of Evaluation: 10:16 - Subjective Subjective: Podiatry Progress Note - Dr. Whelan 57M seen and examined at bedside POD#5 right foot Charcot arthropathy reconstruction and endoscopic gastrocnemius recession. Patient resting in bed comfortably, hemodynamically stable and NAD. No acute events overnight. Denies any pain to RLE. Reports he is working with physical therapy without any issues. Patient to be d/c to [facility] at [facility]. Denies N/V/F/D/C/SOB. No new complaints. Objective - Vital Signs/Intake and Output Vital Signs (last 24 hours): Temp Pulse Resp BP Pulse Ox 98 F 75 20 163/83 H 95 02/18/18 07:00 02/18/18 07:00 02/18/18 07:00 02/18/18 07:00 02/18/18 07:00 Intake and Output: 02/18/18 02/18/18 06:59 18:59 Output Total 1800 Balance -1800 - Medications Medications: Current Medications Acetaminophen (Tylenol 325mg Tab) 650 mg PO Q6 PRN PRN Reason: Pain, Mild (1-3) Last Admin: 02/17/18 21:59 Dose: 650 mg Amlodipine Besylate (Norvasc) 5 mg PO DAILY [facility] Last Admin: 02/18/18 10:01 Dose: 5 mg Heparin Sodium (Porcine) (Heparin) 5,000 units SC Q12 [facility] Last Admin: 02/18/18 10:01 Dose: 5,000 units Insulin Glargine (Lantus) 40 unit SC HS [facility] Last Admin: 02/17/18 21:54 Dose: 40 unit Insulin Human Regular (Novolin R) 0 unit SC ACHS [facility] PRN Reason: Protocol Last Admin: 02/18/18 08:04 Dose: 4 unit Metformin HCl (Glucophage) 1,000 mg PO BIDCC [facility] Last Admin: 02/18/18 08:04 Dose: 1,000 mg Metoprolol Tartrate (Lopressor) 100 mg PO DAILY [facility] Last Admin: 02/18/18 10:01 Dose: 100 mg Pantoprazole Sodium (Protonix Ec Tab) 40 mg PO DAILY [facility] Last Admin: 02/18/18 10:01 Dose: 40 mg Tamsulosin HCl (Flomax) 0.4 mg PO DAILY [facility] Last Admin: 02/18/18 10:01 Dose: 0.4 mg - Labs Labs: 02/14/18 06:16 02/14/18 06:16 - Constitutional Appears: Well, Non-toxic, No Acute Distress - Extremities Exam Additional comments: RLE focused physical exam Beverly spatial external fixator noted to right lower extremity with dressings clean/dry/intact. Neurovascular status intact to digits Digital ROM present No pain upon calf squeeze - Neurological Exam Neurological Exam: Alert, Awake, Oriented x3 - Psychiatric Exam Psychiatric exam: Normal Affect, Normal Mood Assessment and Plan - Assessment and Plan (Free Text) Assessment: 57M POD#5 Right foot Charcot arthropathy reconstruction and endoscopic gastrocnemius recession Plan: Patient seen and examined alongside attending, Dr. Whelan VSS Dressing left intact Continue IS 10x every hour Activity: NWB RLE with the assistance of crutches Continue PT Anticoagulation: Heparin 5000U SC q12 Pain control - Tylenol Stable for dc per podiatry SW consulted: Patient agreeable to be dc to [facility] -will obtain post-operative XR prior to discharge -Patient to follow up with Dr. Whelan in office within 1 week of discharge Podiatry will continue to follow
--- NOTE | 2018-02-18 12:18 | CP.PCM.PN ---
Subjective - Date & Time of Evaluation Date of Evaluation: 02/18/18 Time of Evaluation: 11:00 - Subjective Subjective: patient seen today, denies any chest pain, sob, headache, abdominal pain, N/V/D no overnight events reported by RN s/p POD#5 right foot Charcot arthropathy reconstruction and endoscopic gastrocnemius recession. Objective - Vital Signs/Intake and Output Vital Signs (last 24 hours): Temp Pulse Resp BP Pulse Ox 98 F 75 20 163/83 H 95 02/18/18 07:00 02/18/18 07:00 02/18/18 07:00 02/18/18 07:00 02/18/18 07:00 Intake and Output: 02/18/18 02/18/18 06:59 18:59 Output Total 1800 Balance -1800 - Medications Medications: Current Medications Acetaminophen (Tylenol 325mg Tab) 650 mg PO Q6 PRN PRN Reason: Pain, Mild (1-3) Last Admin: 02/17/18 21:59 Dose: 650 mg Amlodipine Besylate (Norvasc) 5 mg PO DAILY [facility] Last Admin: 02/18/18 10:01 Dose: 5 mg Heparin Sodium (Porcine) (Heparin) 5,000 units SC Q12 [facility] Last Admin: 02/18/18 10:01 Dose: 5,000 units Insulin Glargine (Lantus) 40 unit SC HS [facility] Last Admin: 02/17/18 21:54 Dose: 40 unit Insulin Human Regular (Novolin R) 0 unit SC ACHS [facility] PRN Reason: Protocol Last Admin: 02/18/18 08:04 Dose: 4 unit Metformin HCl (Glucophage) 1,000 mg PO BIDCC [facility] Last Admin: 02/18/18 08:04 Dose: 1,000 mg Metoprolol Tartrate (Lopressor) 100 mg PO DAILY [facility] Last Admin: 02/18/18 10:01 Dose: 100 mg Pantoprazole Sodium (Protonix Ec Tab) 40 mg PO DAILY [facility] Last Admin: 02/18/18 10:01 Dose: 40 mg Tamsulosin HCl (Flomax) 0.4 mg PO DAILY [facility] Last Admin: 02/18/18 10:01 Dose: 0.4 mg - Labs Labs: 02/14/18 06:16 02/14/18 06:16 Assessment and Plan - Assessment and Plan (Free Text) Assessment: a/p 57M POD#5 Right foot Charcot arthropathy reconstruction and endoscopic gastrocnemius recession Patient accepted at [facility] rehab d/w Podiatry residents , stable for discharge from podiatry standpoint for discharge to [facility] and want to do repeat x-ray post op before discharge and f/u with Dr. Allen office in 1 week x- ray ordered by podiatry residents and done - pending result D/W Dr. Ordonez , stable for discharge to [facility] today and Dr. Ordonez will follow the patient at [facility] Discharge plan discussed with patient, who understands and agrees with plan SW will arrange transportation
--- NOTE | 2018-02-18 14:02 | CP.PCM.DIS ---
Provider - Provider Date of Admission: 02/13/18 13:11 Attending physician: Renee Ordonez MD Time Spent in preparation of Discharge (in minutes): 35 Hospital Course - Lab Results Lab Results: Most Recent Lab Values WBC 12.7 K/uL (4.8-10.8) H 02/14/18 06:16 RBC 4.90 Mil/uL (4.40-5.90) 02/14/18 06:16 Hgb 13.6 g/dL (12.0-18.0) 02/14/18 06:16 Hct 41.3 % (35.0-51.0) 02/14/18 06:16 MCV 84.3 fL (80.0-94.0) 02/14/18 06:16 MCH 27.8 pg (27.0-31.0) 02/14/18 06:16 MCHC 33.0 g/dL (33.0-37.0) 02/14/18 06:16 RDW 14.2 % (11.5-14.5) 02/14/18 06:16 Plt Count 264 K/uL (130-400) 02/14/18 06:16 MPV 7.6 fL (7.2-11.7) 02/14/18 06:16 Neut % (Auto) 74.6 % (50.0-75.0) 02/14/18 06:16 Lymph % (Auto) 17.9 % (20.0-40.0) L 02/14/18 06:16 Trinity % (Auto) 6.6 % (0.0-10.0) 02/14/18 06:16 Eos % (Auto) 0.6 % (0.0-4.0) 02/14/18 06:16 Baso % (Auto) 0.3 % (0.0-2.0) 02/14/18 06:16 Neut # (Auto) 9.5 K/uL (1.8-7.0) H 02/14/18 06:16 Lymph # (Auto) 2.3 K/uL (1.0-4.3) 02/14/18 06:16 Trinity # (Auto) 0.8 K/uL (0.0-0.8) 02/14/18 06:16 Eos # (Auto) 0.1 K/uL (0.0-0.7) 02/14/18 06:16 Baso # (Auto) 0.0 K/uL (0.0-0.2) 02/14/18 06:16 Sodium 139 mmol/L (132-148) 02/14/18 06:16 Potassium 4.6 mmol/L (3.6-5.2) 02/14/18 06:16 Chloride 100 mmol/L (98-107) 02/14/18 06:16 Carbon Dioxide 27 mmol/L (22-30) 02/14/18 06:16 Anion Gap 16 (10-20) 02/14/18 06:16 BUN 17 mg/dL (9-20) 02/14/18 06:16 Creatinine 1.1 mg/dL (0.8-1.5) 02/14/18 06:16 Est GFR ( Amer) > 60 02/14/18 06:16 Est GFR (Non-Af Amer) > 60 02/14/18 06:16 POC Glucose (mg/dL) 324 mg/dL (65-110) H 02/18/18 10:56 Random Glucose 207 mg/dL (75-110) H 02/14/18 06:16 Calcium 8.7 mg/dl (8.6-10.4) 02/14/18 06:16 Total Bilirubin 0.6 mg/dL (0.2-1.3) 02/14/18 06:16 AST 19 U/L (17-59) 02/14/18 06:16 ALT 20 U/L (21-72) L D 02/14/18 06:16 Alkaline Phosphatase 148 U/L (38-126) H D 02/14/18 06:16 Total Protein 6.8 g/dL (6.3-8.3) 02/14/18 06:16 Albumin 3.6 g/dL (3.5-5.0) 02/14/18 06:16 Globulin 3.2 gm/dL (2.2-3.9) 02/14/18 06:16 Albumin/Globulin Ratio 1.1 (1.0-2.1) 02/14/18 06:16 - Hospital Course Hospital Course: Patient is admitted after the OR for the correction of the fracture of the right foot. Currently patient is postop complaining of pain in the right foot. PAST HIST. Recently patient had a fall and had fracture of the right metatarsal and phalanx and patient underwent the OR for correction of the fracture. Patient also has a short cord foot. Patient is a history of type 2 diabetes with severe peripheral neuropathy history of coronary artery disease with stent and history of hypertension. 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 Sugars were monitored with sliding scale and Lantus insulin. The podiatric surgery performed the surgery on the right foot with reconstruction of sarcoid foot with shortening of the gastrocnemius muscle. Postoperatively patient was stable hemodynamically and stable blood sugars. Patient is now being transferred to rehab center for further therapy and gait training. Discharge Plan - Follow Up Plan Condition: GOOD Disposition: HOME/ ROUTINE Instructions: Arthrodesis of Foot and Ankle, Open Surgery, Heart Healthy Diet, Carbohydrate Counting Diet, Diabetes Diet , Ankle Fracture (DC), Managing Pain After Surgery Additional Instructions: Please admit patient under Dr. Ordonez service - Call Dr. Ordonez upon patient arrival to the facility Please follow up with Dr. Tejeda office in 1 week Please continue medication as per med. rec. NWB RLE with the assistance of crutches Continue PT Referrals: Gui Jain DPM [Staff Provider] - Renee Ordonez MD [Staff Provider] -
--- NOTE | 2018-02-18 16:02 | RAD ---
Date of service: 02/18/2018 PROCEDURE: Right Foot Radiographs. HISTORY: s/p right foot charcot reconstruction COMPARISON: 02/13/2019 FINDINGS: BONES: As before there is external hardware - inferred for fixation purposes - obscuring bony detail ; especially the tarsal region JOINTS: NormalAt the 1st tarsal metatarsal take aeration and the 1st 2nd inter metatarsal bases list jadon joint location there is ossific densities compatible with ossific fragmentation associated with a Charcot joint. Given the additional clinical history provided at this setting. The homogeneously radiopaque prosthetic component over the medial tarsus at this tarsal metatarsal articulation is centered medial to the 1st metatarsal base. SOFT TISSUES: Normal. OTHER FINDINGS: None. IMPRESSION: Postop changes as above -history states right foot Charcot reconstruction ; correlate clinically
[2018-02-18 16:27] VITALS: BP 144/83; PULSE 72; TEMP 98; O2SAT 98
== END 2018-02-18 17:50 | DRG 42 ==
LOC: C.SDS 05:51 → C.9S 13:11 → C.6T 15:31
PROVIDERS: ADMIT Internal Medicine Cardiovascular Disease; ATTEND Internal Medicine Cardiovascular Disease
PROC: 0L8N4ZZ Division of Right Lower Leg Tendon, Percutaneous Endoscopic Approach (ICD-10-PCS; 2018-02-13)
PROC: 0SQ Lower Joints, Repair (ICD-10-PCS; 2018-02-13)
PROC: 0KT Muscles, Resection (ICD-10-PCS; 2018-02-13)
PROC: 0QTN0ZZ Resection of Right Metatarsal, Open Approach (ICD-10-PCS; 2018-02-13)
PROC: 0QH Lower Bones, Insertion (ICD-10-PCS; 2018-02-13)
PROC: 0QR Lower Bones, Replacement (ICD-10-PCS; 2018-02-13)
PROC: 0SGK0ZZ (ICD-10-PCS; 2018-02-13)
PROC: XK02303 Introduction of Concentrated Bone Marrow Aspirate into Muscle, Percutaneous Approach, New Technology Group 3 (ICD-10-PCS; 2018-02-13)
PROC: 0QBL0ZZ Excision of Right Tarsal, Open Approach (ICD-10-PCS; principal; 2018-02-13 07:45)
DX: E11.610 Type 2 diabetes mellitus with diabetic neuropathic arthropathy (principal); M21.6X1 Other acquired deformities of right foot; M14.671 Charcot's joint, right ankle and foot; S93.324A Dislocation of tarsometatarsal joint of right foot, initial encounter; S92.301A Fracture of unspecified metatarsal bone(s), right foot, initial encounter for closed fracture; G89.18 Other acute postprocedural pain; E11.42 Type 2 diabetes mellitus with diabetic polyneuropathy; I25.10 Atherosclerotic heart disease of native coronary artery without angina pectoris; I10 Essential (primary) hypertension; E78.00 Pure hypercholesterolemia, unspecified; W19.XXXA Unspecified fall, initial encounter; Z79.4 Long term (current) use of insulin; Z87.891 Personal history of nicotine dependence; Z95.1 Presence of aortocoronary bypass graft; Z95.5 Presence of coronary angioplasty implant and graft